=== PATIENT | female | born 1935 | race Caucasian/White ===

== ENCOUNTER → 2017-05-22 | Outpatient (CLI) | payer MEDICARE, BC ==
[2017-05-22 17:57] LABS: Sodium 129 mmol/L (137-145)
== END | disposition home or self-care (01) ==
LOC: LABWHC1 17:05
PROVIDERS: ATTEND Family Medicine
DX: E87.1 Hypo-osmolality and hyponatremia (principal)
CPT/HCPCS: 36415; 83930; 84295; 84300

== ENCOUNTER → 2017-05-29 | Outpatient (CLI) | payer MEDICARE, BC ==
[2017-05-29 13:41] LABS: Anion Gap 6 mmol/L; Blood Urea Nitrogen 8 mg/dL (7-17); Calcium 8.6 mg/dL (8.4-10.2); Carbon Dioxide 26 mmol/L (22-30); Chloride 99 mmol/L (98-107); Glucose 152 mg/dL (74-99); Non-African American GFR(MDRD) >60 (>60 ml/min/1.73 sqM); Potassium 3.9 mmol/L (3.5-5.1); Sodium 131 mmol/L (137-145)
== END | disposition home or self-care (01) ==
LOC: LABWHC1 12:25
PROVIDERS: ATTEND Family Medicine
DX: E87.1 Hypo-osmolality and hyponatremia (principal)
CPT/HCPCS: 36415; 80048

== ENCOUNTER → 2017-06-29 | Outpatient (CLI) | payer MEDICARE, BC ==
[2017-06-29 11:50] LABS: Basophils % (A) 1 %; CH 29.1; CHCM 31.6; Eosinophils # (A) 0.3 k/uL (0-0.7); Eosinophils % (A) 6 %; HCT 37.2 % (34.0-46.0); HDW 2.25; HGB 12.2 gm/dL (11.4-16.0); Luc # (Auto) 0.18; Luc % (Auto) 3; Lymphocytes # (A) 1.2 k/uL (1.0-4.8); Lymphocytes % (A) 21 %; MCH 30.4 pg (25.0-35.0); MCHC 32.9 g/dL (31.0-37.0); MCV 92.6 fL (80.0-100.0); Mean Platelet Volume 7.6; Monocytes # (A) 0.4 k/uL (0-1.0); Monocytes % (A) 7 %; Neutrophils # (A) 3.5 k/uL (1.3-7.7); Neutrophils % (A) 62 %; RBC 4.02 m/uL (3.80-5.40); RDW 14.3 % (11.5-15.5); WBC 5.6 k/uL (3.8-10.6); WBC (Perox) 5.91
[2017-06-29 12:07] LABS: Anion Gap 4 mmol/L; Blood Urea Nitrogen 11 mg/dL (7-17); Calcium 9.3 mg/dL (8.4-10.2); Carbon Dioxide 28 mmol/L (22-30); Chloride 103 mmol/L (98-107); Glucose 88 mg/dL (74-99); Non-African American GFR(MDRD) >60 (>60 ml/min/1.73 sqM); Potassium 4.5 mmol/L (3.5-5.1); Sodium 135 mmol/L (137-145)
== END | disposition home or self-care (01) ==
LOC: LABWHC1 11:24
PROVIDERS: ATTEND Nurse Practitioner Family
DX: D69.2 Other nonthrombocytopenic purpura (principal); E87.1 Hypo-osmolality and hyponatremia
CPT/HCPCS: 36415; 80048; 85025

== ENCOUNTER → 2017-09-11 | Outpatient (CLI) | payer MEDICARE, BC ==
[2017-09-11 12:49] LABS: Anion Gap 6 mmol/L; Blood Urea Nitrogen 11 mg/dL (7-17); Calcium 9.1 mg/dL (8.4-10.2); Carbon Dioxide 30 mmol/L (22-30); Chloride 99 mmol/L (98-107); Glucose 123 mg/dL (74-99); Potassium 4.3 mmol/L (3.5-5.1); Sodium 135 mmol/L (137-145)
== END | disposition home or self-care (01) ==
LOC: LABWHC1 12:15
PROVIDERS: ATTEND Family Medicine
DX: E87.1 Hypo-osmolality and hyponatremia (principal)
CPT/HCPCS: 36415; 80048; 83930

== ENCOUNTER → 2017-12-04 | Outpatient (CLI) | payer MEDICARE, BC | END | disposition home or self-care (01) | LOC: LABPAT 16:11 | PROVIDERS: ATTEND Orthopaedic Surgery | DX: Z01.812 Encounter for preprocedural laboratory examination (principal) | CPT/HCPCS: 87070 ==

== ENCOUNTER → 2017-12-07 | Outpatient (CLI) | payer MEDICARE, BC ==
[2017-12-07 16:11] LABS: HCT 36.4 % (34.0-46.0); HGB 11.7 gm/dL (11.4-16.0); MCH 28.4 pg (25.0-35.0); MCHC 32.1 g/dL (31.0-37.0); MCV 88.4 fL (80.0-100.0); Mean Platelet Volume 7.9; Platelet Count 213 k/uL (150-450); RBC 4.12 m/uL (3.80-5.40); RDW 13.3 % (11.5-15.5); WBC 4.2 k/uL (3.8-10.6)
[2017-12-07 16:19] LABS: Appearance,Urine Clear (Clear); Bacteria,Urine Rare /hpf; Bilirubin,Urine Negative (Negative); Blood,Urine Negative (Negative); Color,Urine Light Yellow; Glucose,Urine (UA) Negative (Negative); Ketones,Urine Negative (Negative); Leukocyte Esterase,Urine Trace (Negative); Mucus,Urine Rare /hpf; Nitrite,Urine Negative (Negative); Partial Thromboplastin Time 23.1 sec (22.0-30.0); Protein,Urine Negative (Negative); Prothrombin Time 9.9 sec (9.0-12.0); RBC,Urine <1 /hpf (0-5); Squamous Epithelial Cell,Urine <1 /hpf (0-4); Urobilinogen,Urine <2.0 mg/dL (<2.0); WBC,Urine 1 /hpf (0-5)
[2017-12-07 16:22] LABS: Albumin 3.6 g/dL (3.5-5.0); Calcium 9.2 mg/dL (8.4-10.2); Potassium 5.1 mmol/L (3.5-5.1); Total Bilirubin 0.2 mg/dL (0.2-1.3); Total Protein 6.2 g/dL (6.3-8.2)
[2017-12-07 16:39] LABS: T4, Free (Free Thyroxine) 0.96 ng/dL (0.78-2.19)
== END | disposition home or self-care (01) ==
LOC: LABPAT 15:28
PROVIDERS: ATTEND Family Medicine
DX: Z01.812 Encounter for preprocedural laboratory examination (principal); E55.9 Vitamin D deficiency, unspecified; R63.4 Abnormal weight loss
CPT/HCPCS: 36415; 80053; 81001; 82306; 84439; 84443; 85027; 85610; 85730; 87077; 87086; 87186

== ENCOUNTER → 2017-12-11 | Outpatient (CLI) | payer MEDICARE, BC ==
--- NOTE | 2017-12-11 10:50 | ECHOF ---
Referral Reason:Z01.818 Presurgical Evaluation MEASUREMENTS -------- HEIGHT: 157.5 cm WEIGHT: 43.1 kg BP: 154/64 IVSd: 1.0 cm (0.6 - 1.1) LVIDd: 3.1 cm (3.9 - 5.3) LVPWd: 1.1 cm (0.6 - 1.1) IVSs: 1.5 cm LVIDs: 1.9 cm LVPWs: 1.4 cm LAESV Index (A-L): 38.09 ml/m Ao Diam: 2.6 cm (2.0 - 3.7) AV Cusp: 1.6 cm (1.5 - 2.6) LA Diam: 3.1 cm (2.7 - 3.8) EPSS: 1.3 cm MV E Iggy: 0.77 m/s MV DecT: 138 ms MV A Iggy: 0.76 m/s MV E/A Ratio: 1.01 RAP: 5.00 mmHg RVSP: 23.73 mmHg MV EF SLOPE: 142.03 mm/s (70 - 150) MV EXCURSION: 1.49 cm (> 18.000) FINDINGS -------- Sinus rhythm. This was a technically good study. The left ventricular size is normal. Left ventricular wall thickness is normal. Overall left vent ricular systolic function is low-normal with, an EF between 50 - 55 %. The right ventricle is normal in size and function. The left atrium is normal in size. The right atrium is normal in size. Aortic valve is trileaflet and is mildly thickened. The mitral valve leaflets are mildly thickened. No mitral regurgitation. Mild tricuspid regurgitation present. The right ventricular systolic pressure, as measured by Doppl er, is 23.73mmHg. The pulmonic valve is normal. The aortic root size is normal. Normal inferior vena cava with normal inspiratory collapse consistent with estimated right atrial pre ssure of 5 mmHg. There is a small, generalized pericardial effusion present. CONCLUSIONS -------- 1. Sinus rhythm. 2. This was a technically good study. 3. The left ventricular size is normal. 4. Left ventricular wall thickness is normal. 5. Overall left ventricular systolic function is low-normal with, an EF between 50 - 55 %. 6. The right ventricle is normal in size and function. 7. The left atrium is normal in size. 8. The right atrium is normal in size. 9. Aortic valve is trileaflet and is mildly thickened. 10. The mitral valve leaflets are mildly thickened. 11. No mitral regurgitation. 12. Mild tricuspid regurgitation present. 13. The right ventricular systolic pressure, as measured by Doppler, is 23.73mmHg. 14. The pulmonic valve is normal. 15. The aortic root size is normal. 16. Normal inferior vena cava with normal inspiratory collapse consistent with estimated right atrial pressure of 5 mmHg. 17. There is a small, generalized pericardial effusion present. PROSTHETIC MAKEUP DESIGNER: Raegan Pop RDCS
== END | disposition home or self-care (01) ==
LOC: RADECHMAIN 08:25
PROVIDERS: ATTEND Family Medicine
DX: Z01.818 Encounter for other preprocedural examination (principal)
CPT/HCPCS: 93306

== ENCOUNTER → 2017-12-12 | Outpatient (CLI) | payer MEDICARE, BC | END | disposition home or self-care (01) | LOC: LABPAT 16:42 | PROVIDERS: ATTEND Orthopaedic Surgery | DX: Z01.818 Encounter for other preprocedural examination (principal); E55.9 Vitamin D deficiency, unspecified; R63.4 Abnormal weight loss; Z79.01 Long term (current) use of anticoagulants | CPT/HCPCS: 86850; 86900; 86901 ==

== ENCOUNTER 2017-12-19 07:21 | Inpatient (IN) | payer MEDICARE, BC ==
[2017-12-11 16:47] VITALS: BMI 17.4
[~2017-12-19 07:21] MED LIST: ACETAMINOPHEN TAB 500 MG TAB PO ONE; HYDROmorphone 0.5 MG/0.5 ML SYRINGE IVP PRN; LIDOCAINE 1% 20 ML VIAL (10MG/ML) FOR IV START INTRADERMA PRN; MELOXICAM 7.5 MG TAB PO ONE; MIDAZOLAM 2 MG/2 ML VIAL IV PRN; MORPHINE SULFATE 2 MG/ML SYRINGE IV PRN; ONDANSETRON ODT 4 MG TAB PO ONE; ROPIVACAINE 246.25 MG, EPINEPHrine 0.5 MG, KETOROLAC 30 MG, cloNIDine HCL/PF 80 MCG, WA... MISCELLANE ONE; SCOPOLAMINE 1.5MG/72HR PATCH TRANSDERM ONE; TRANEXAMIC ACID 1,000 MG in SODIUM CHLORIDE 0.9% 50 ML IVPB ONE
[2017-12-19] MEDS: LACTATED RINGERS 1,000 ML IV SCH (08:27)
[2017-12-19] MEDS ORDERED: NALOXONE 0.4 MG/ML 1 ML VIAL IV PRN (09:11)
[2017-12-19] MEDS ORDERED: MAGNESIUM HYDROXIDE 2,400 MG/10 ML CUP PO PRN (09:11)
[2017-12-19] MEDS ORDERED: HYDROcodone/APAP 5-325MG 1 EACH TAB PO PRN ×2 (09:11)
[2017-12-19] MEDS ORDERED: ONDANSETRON 4 MG/2 ML VIAL IVP PRN (09:11)
[2017-12-19] MEDS ORDERED: MORPHINE SULFATE 4 MG/ML SYRINGE IVP PRN ×3 (09:11)
[2017-12-19] MEDS ORDERED: hydrOXYzine PAMOATE 25 MG CAP PO PRN (09:11)
[2017-12-19] MEDS ORDERED: DIAZEPAM 5 MG TAB PO PRN ×2 (09:11)
[2017-12-19] MEDS ORDERED: ceFAZolin 3,000 MG in SODIUM CHLORIDE 0.9% IRRIGATIO 3,000 ML IRRIGATION ONE (09:36)
[2017-12-19] MEDS: ceFAZolin IN SWFI 2 GM/20 ML SYRINGE IVP ONE ×2 (09:44→09:58)
--- NOTE | 2017-12-19 11:06 | P.OP ---
Date of Procedure: 12/19/17 Preoperative Diagnosis: Severe osteoarthritis of the right hip Postoperative Diagnosis: Severe osteoarthritis of the right hip Procedure(s) Performed: Right total hip arthroplasty with a direct anterior approach Implants: Zuñiga and nephew Polarstem size 3 standard Zuñiga [employer] Nephew R3, 3 hole acetabular shell, 48 mm Zuñiga [employer] Nephew reflection 6.5 mm cancellus screw, 20 mm 2 Zuñiga [employer] Nephew R3, XLPE 20 acetabular liner Zuñiga [employer] Nephew Oxinium femoral head 32 m, +0 All components were press-fit. The articulation is Oxinium on polyethylene. Anesthesia: spinal Surgeon: Deshawn Ventura Cobbler Upper #1: Saarh Bowden Estimated Blood Loss (ml): 100 (67 mL returned with Cell Saver) Pathology: other (Femoral head) Condition: stable Disposition: PACU Indications for Procedure: After failure of conservative treatment we discussed the surgical and nonsurgical treatment options at length. Patient wishes to proceed with a total hip arthroplasty with a direct anterior approach. Complications specific to this procedure were discussed at length, including but not limited to infection, leg length discrepancy, dislocation, and nerve injury. Patient is aware of all these complications and informed consent was obtained Operative Findings: The operative findings are consistent with severe osteoarthritis of the right hip Description of Procedure: Patient was seen and evaluated in the preoperative area, consent was reviewed, and the surgical site was marked with a skin marker. Patient was then brought to the operating room and given prophylactic antibiotics intravenously. 1 g of Tranexamic acid was also given. A spinal anesthetic was administered by the anesthesia department. The patient was then placed on the [place] table with the bony prominences well-padded. The hip area was then prepped and draped in usual sterile fashion. A universal timeout was then performed, which confirmed the patient's name, surgical site, ALLERGIES, and procedure being performed. Next the incision site was located at 1 cm distal and 1 cm lateral to the anterior superior iliac spine. The skin and subcutaneous tissues were sharply incised. Incision was carefully dissected down to the fascia overlying the tensor fascia michelle muscle. This fascia was then incised in line with the incision. Next, using blunt finger dissection, the tensor fascia michelle muscle was dissected off its investing fascia. The muscle was then carefully retracted laterally with a cobra retractor over the lateral neck of the femur. Next, the circumflex vessels were identified and cauterized using the AquaMantis device. The anterior hip capsule was then exposed. The capsule was then opened and an inverted T fashion. Cobra retractors were then placed intracapsularly. The proximal femur was then visualized. The femoral neck was then osteotomized appropriate level above the lesser trochanter. Small amount of traction was placed with the Newfield table. A small wedge of bone was then removed from the remaining femoral head. Next, using a corkscrew femoral head was easily removed from the acetabulum. On gross visual inspection, the femoral head had complete loss of articular cartilage in multiple periarticular osteophytes. Attention was then turned to the acetabulum. the acetabulum was exposed and any remaining labrum was excised. Sequential reaming of the acetabulum was performed using fluoroscopic guidance. When the appropriate size was reached, a trial was then placed. The position and fit of the trial was checked with fluoroscopy. The trial was then removed. Then, using fluoroscopic guidance, the final implant was impacted at 20 of anteversion and 40 of abduction, and fully seated in the acetabulum. 2 screws were then placed in the acetabulum. Again fluoroscopy was used to check position of the screws. Next, the liner was then impacted, with a 20 elevated liner located in the anterior superior quadrant. Component locking was confirmed. Attention was then directed to the femur. With the aid of the Newfield table, the femur was externally rotated to approximately 130, extended, and abducted under the opposite leg. A side hook was then placed under the proximal femur, and the side hook elevator was used to elevate the proximal femur. Retractors were then placed. A capsular release was performed, as well as a release of the conjoined tendon, which afforded excellent visualization of the proximal femur. Next, a box osteotome was used to lateralize the proximal femur. A reset merchandiser was then used to locate the femoral canal. Sequential broaching was then performed with appropriate size which afforded excellent fixation in the proximal femur. A trial was then placed with appropriate head and neck, and the hip was gently reduced with the aid of the Newfield table. Fluoroscopy was then used to check position of the components, as well as to ensure equal leg lengths. The hip was then gently dislocated and the trials were then removed. Final implants were then impacted and the hip was again reduced. Final fluoroscopic x-rays confirmed that the components were in anatomic position, as well as equal leg lengths. The hip was also taken through range of motion, and found to be stable. The hip was then copiously irrigated with antibiotic solution with pulsatile lavage. The hip was then irrigated with Irrisept solution. The soft tissues were then injected with a ropivacaine solution, which consisted of 246.25 mg of ropivacaine, 0.5 mg of epinephrine, 30 mg of Toradol, 80 g of clonidine, and 48.45 mL of sterile water, for a total of 100 mL of fluid injected. A second dose of 1 g of Tranexamic acid was also given. the fascia was then closed with 2-0 strata fix suture. The subcutaneous tissue was closed with 3-0 Vicryl. The subcuticular tissue was closed with 3-0 strata fix suture. The skin was then closed with Dermabond glue and a sterile silver dressing. The patient was then transferred to the recovery room in stable condition. The culinary assistant BREANNA Arboleda was required due to the complexity of surgery, and the need for skilled surgical resident for positioning, draping, exposure, retraction, and closure of the wound.
--- NOTE | 2017-12-19 11:40 | XR ---
EXAMINATION TYPE: XR Hip Limited RT, FL guidance operating room DATE OF EXAM: 12/19/2017 CLINICAL HISTORY: Right hip replacement TECHNIQUE: Fluoroscopy. Limited intraoperative views right hip. COMPARISON: None. FINDINGS: Fluoroscopic guidance was provided during total hip replacement procedure performed by Dr. Ventura. A total of 34 seconds of fluoroscopic time was utilized during the procedure and 2 intrao perative spot images are acquired. Images acquired show metallic hardware satisfactory in position on frontal view intraoperatively. IMPRESSION: As Above.
--- NOTE | 2017-12-19 13:09 | XR ---
EXAMINATION TYPE: XR Hip Limited RT DATE OF EXAM: 12/19/2017 CLINICAL HISTORY: Right hip pain and osteoarthritis. TECHNIQUE: Single AP portable view of right hip is obtained immediately postoperatively. COMPARISON: None. FINDINGS: Metallic hardware from right hip arthroplasty is seen and appears satisfactory in alignment and position. There is evidence of recent surgery with subcutaneous gas noted laterally. IMPRESSION: Metallic hardware from right hip arthroplasty is satisfactory in position.
[2017-12-19] MEDS ORDERED: ACETAMINOPHEN IV (For NPO) 1,000 MG/100 ML VIAL IVPB ONE (14:31)
[2017-12-19] MEDS: ceFAZolin IN SWFI 2 GM/20 ML SYRINGE IVP SCH ×2 (18:11→22:51)
[2017-12-19] MEDS: ASPIRIN 325 MG TAB PO SCH (20:09)
[2017-12-19] MEDS ORDERED: FAMOTIDINE 20 MG/2 ML VIAL IV SCH (21:00)
[2017-12-19] MEDS: ACETAMINOPHEN TAB 500 MG TAB PO PRN (21:19)
[2017-12-20] MEDS: SODIUM CHLORIDE 0.9% 1,000 ML IV SCH ×3 (00:40→15:05)
[2017-12-20] MEDS: SENNOSIDES-DOCUSATE SODIUM 1 EACH TAB PO SCH ×2 (00:40→21:36)
[2017-12-20] MEDS: ACETAMINOPHEN TAB 500 MG TAB PO PRN (03:13)
[2017-12-20] MEDS: LACTATED RINGERS 1,000 ML IV SCH (06:38)
[2017-12-20 07:50] LABS: Basophils % (A) 0 %; Eosinophils # (A) 0.1 k/uL (0-0.7); Eosinophils % (A) 2 %; HCT 29.2 % (34.0-46.0); Lymphocytes # (A) 0.7 k/uL (1.0-4.8); Lymphocytes % (A) 13 %; MCH 28.8 pg (25.0-35.0); MCHC 33.2 g/dL (31.0-37.0); MCV 86.9 fL (80.0-100.0); Mean Platelet Volume 7.9; Monocytes # (A) 0.5 k/uL (0-1.0); Monocytes % (A) 8 %; Neutrophils # (A) 4.3 k/uL (1.3-7.7); Neutrophils % (A) 75 %; Platelet Count 186 k/uL (150-450); RBC 3.36 m/uL (3.80-5.40); RDW 13.5 % (11.5-15.5); WBC 5.7 k/uL (3.8-10.6)
[2017-12-20 07:53] LABS: HGB 9.7 gm/dL (11.4-16.0)
[2017-12-20] MEDS ORDERED: HYDROmorphone 2 MG TAB PO PRN ×3 (07:57→08:00)
[2017-12-20] MEDS ORDERED: traMADol 50 MG TAB PO PRN (08:37)
--- NOTE | 2017-12-20 08:45 | P.DS ---
Providers Date of admission: 12/19/17 07:21 Expected date of discharge: 12/20/17 Attending physician: Deshawn Ventura Consults: 12/19/17 09:11 Consult Physician Routine Consulting Provider: Flakito Rider Consult Reason/Comments: medical management Do you want consulting provider notified?: Yes Primary care physician: Jonatan Solis - Discharge Diagnosis(es) (1) Primary osteoarthritis of right hip Current Visit: Yes Status: Acute (2) S/P total hip arthroplasty Current Visit: Yes Status: Acute Hospital Course: This is a 82-year-old female with known history of degenerative arthritis of the right hip. The patient presents for evaluation. After discussion and consideration patient elects to proceed with total hip arthroplasty. The patient is seen preoperatively by Dr. Ventura and medically cleared for surgery by their primary care physician. Patient is admitted to [facility] on 12/19/2017 for total hip arthroplasty. The procedures performed without complication or sequelae. The patient is doing well postoperatively. Labs and vital signs are stable on day of discharge. On day of discharge patient's hip incision is healing well. There is minimal erythema. There is no drainage noted at this time. There is minimal soft tissue swelling to the hip and thigh. Patient has full foot and ankle motion without difficulty or pain. Neurovascular status to the right lower extremity is intact. Patient is discharged home in good condition. Please see med rec for accurate list of home medications. Plan - Discharge Summary Discharge Rx Participant: Yes New Discharge Prescriptions: New Aspirin 325 mg PO BID #60 tab Sennosides [Senokot] 1 tab PO BID #60 tablet traMADol HCl [Ultram] 1 - 2 tab PO Q6H PRN #90 tab PRN Reason: Pain No Action Multivitamins, Thera [Multivitamin] 1 tab PO DAILY Naproxen Sodium [Aleve] 220 mg PO BID PRN PRN Reason: Pain Acetaminophen Tab [Tylenol Tab] 650 mg PO Q4H PRN PRN Reason: Pain Cholecalciferol (Vitamin D3) [Vitamin D3] 2,000 unit PO DAILY Calcium Carbonate/Vitamin D3 [Calcium 600-Vit D3 400 Tablet] 1 tab PO DAILY Ascorbic Acid [Vitamin C] 500 mg PO DAILY Biotin 1,000 mcg PO DAILY Cefuroxime [Ceftin] 250 mg PO BID Discharge Medication List Multivitamins, Thera [Multivitamin] 1 tab PO DAILY 05/05/14 [History] Acetaminophen Tab [Tylenol Tab] 650 mg PO Q4H PRN 12/11/17 [History] Ascorbic Acid [Vitamin C] 500 mg PO DAILY 12/11/17 [History] Biotin 1,000 mcg PO DAILY 12/11/17 [History] Calcium Carbonate/Vitamin D3 [Calcium 600-Vit D3 400 Tablet] 1 tab PO DAILY [History] Cholecalciferol (Vitamin D3) [Vitamin D3] 2,000 unit PO DAILY 12/11/17 [History] Naproxen Sodium [Aleve] 220 mg PO BID PRN 12/11/17 [History] Cefuroxime [Ceftin] 250 mg PO BID 12/14/17 [History] Aspirin 325 mg PO BID #60 tab 12/20/17 [Rx] Sennosides [Senokot] 1 tab PO BID #60 tablet 12/20/17 [Rx] traMADol HCl [Ultram] 1 - 2 tab PO Q6H PRN #90 tab 12/20/17 [Rx] Follow up Appointment(s)/Referral(s): Deshawn Ventura DO [Doctor of Osteopathic Medicine] - 2 Weeks Activity/Diet/Wound Care/Special Instructions: Weightbearing as tolerated with walker Leave dressing intact. Dressing may be removed by home care nurse in 10 days. May shower with dressing on. Follow-up with [facility] in 2 weeks, please call with any questions or concerns [phone] Discharge Disposition: HOME WITH HOME HEALTH SERVICES
[2017-12-20] MEDS: MELOXICAM 7.5 MG TAB PO SCH (09:36)
[2017-12-20] MEDS: ASPIRIN 325 MG TAB PO SCH ×2 (09:36→21:36)
[2017-12-20] MEDS: traMADol 50 MG TAB PO PRN ×3 (09:37→23:38)
[2017-12-20] MEDS ORDERED: FAMOTIDINE 20 MG TAB PO SCH (10:00)
[2017-12-20] MEDS: FAMOTIDINE 20 MG TAB PO SCH (11:09)
--- NOTE | 2017-12-20 15:47 | P.CONS ---
History of Present Illness - Reason for Consult Recommendations regarding antibiotics - History of Present Illness 82-year-old female admitted for right hip arthroplasty 6 is less than and surgery no overnight events. Patient is on antibiotics for urinary tract infection with Klebsiella pneumoniae which is sensitive to cephalosporin patient is on the cephalosporin as an outpatient. Patient completed 6 doses of breath therapy so far in couple days here as perioperative antibiotics. I do not believe patient will require any more antibiotics patient appears to have had a symptomatically bacteriuria patient denied any pain fever chills patient did move her bowels today. Review of Systems REVIEW OF SYSTEMS: CONSTITUTIONAL: No fever, no malaise, no fatigue. HEENT: No recent visual problems or hearing problems. Denied any sore throat. CARDIOVASCULAR: No chest pain, orthopnea, PND, no palpitations, no syncope. PULMONARY: No shortness of breath, no cough, no hemoptysis. GASTROINTESTINAL: No diarrhea, no nausea, no vomiting, no abdominal pain. Normoactive bowel sounds. NEUROLOGICAL: No headaches, no weakness, no numbness. HEMATOLOGICAL: Denies any bleeding or petechiae. GENITOURINARY: Denies any burning micturition, frequency, or urgency. MUSCULOSKELETAL/RHEUMATOLOGICAL: Denies any joint pain, swelling, or any muscle pain. ENDOCRINE: Denies any polyuria or polydipsia. The rest of the 14-point review of systems is negative. Past Medical History Past Medical History: Cancer, Eye Disorder, Osteoarthritis (OA) Additional Past Medical History / Comment(s): DUODENAL CANCER 1998. CATARACTS. OSTEOPOROSIS. ON PO AB FOR UTI. History of Any Multi-Drug Resistant Organisms: None Reported Past Surgical History: Appendectomy, Cholecystectomy, Orthopedic Surgery, Tonsillectomy Additional Past Surgical History / Comment(s): "WHIPPLE PROCEDURE FOR DUODENAL CANCER." SANDRA BUNIONECTOMY. COLONOSCOPY Past Anesthesia/Blood Transfusion Reactions: No Reported Reaction Past Psychological History: No Psychological Hx Reported Smoking Status: Former smoker Past Alcohol Use History: Occasional Additional Past Alcohol Use History / Comment(s): SMOKED AGE 15 ON/OFF, LIGHT, QUIT 1963 Past Drug Use History: None Reported - Past Family History Brother(s) Family Medical History: Cancer Additional Family Medical History / Comment(s): X2 BROTHERS - 1 LUNG, 1 COLON Sister(s) Family Medical History: Cancer Additional Family Medical History / Comment(s): lung cancer Medications and Allergies Home Medications Medication Instructions Recorded Confirmed Type Multivitamins, Thera [Multivitamin] 1 tab PO DAILY 05/05/14 12/19/17 History Acetaminophen Tab [Tylenol Tab] 650 mg PO Q4H PRN 12/11/17 12/19/17 History Ascorbic Acid [Vitamin C] 500 mg PO DAILY 12/11/17 12/19/17 History Biotin 1,000 mcg PO DAILY 12/11/17 12/19/17 History Calcium Carbonate/Vitamin D3 1 tab PO DAILY 12/11/17 12/19/17 History [Calcium 600-Vit D3 400 Tablet] Cholecalciferol (Vitamin D3) 2,000 unit PO DAILY 12/11/17 12/19/17 History [Vitamin D3] Naproxen Sodium [Aleve] 220 mg PO BID PRN 12/11/17 12/19/17 History Cefuroxime [Ceftin] 250 mg PO BID 12/14/17 12/19/17 History Aspirin 325 mg PO BID #60 tab 12/20/17 Rx Sennosides [Senokot] 1 tab PO BID #60 tablet 12/20/17 Rx traMADol HCl [Ultram] 1 - 2 tab PO Q6H PRN #90 tab 12/20/17 Rx Allergies Allergy/AdvReac Type Severity Reaction Status Date / Time prednisone Allergy Nausea & Verified 12/19/17 09:21 Vomiting FLU VACCINE AdvReac CHILLS, Uncoded 12/19/17 08:25 FLU-LIKE SYMPTOMS Physical Exam Vitals: Vital Signs Temp Pulse Pulse Resp BP Pulse Ox 12/20/17 14:46 98.6 F 68 16 111/60 98 12/20/17 07:47 99.0 F 72 16 113/60 96 12/20/17 01:32 98.3 F 66 15 118/70 96 12/19/17 20:00 97.2 F L 61 16 121/63 98 12/19/17 15:45 97.6 F 57 L 16 110/63 98 Intake and Output 12/20/17 12/20/17 12/20/17 06:59 14:59 22:59 Intake Total 860 Balance 860 Intake: Oral 860 Other: Voiding Method Toilet # Voids 1 2 Weight 43.091 kg PHYSICAL EXAMINATION: GENERAL: The patient is alert and oriented x3, not in any acute distress. Thin built HEENT: Pupils are round and equally reacting to light. EOMI. No scleral icterus. No conjunctival pallor. Normocephalic, atraumatic. No pharyngeal erythema. No thyromegaly. CARDIOVASCULAR: S1 and S2 present. No murmurs, rubs, or gallops. PULMONARY: Chest is clear to auscultation, no wheezing or crackles. ABDOMEN: Soft, nontender, nondistended, normoactive bowel sounds. No palpable organomegaly. MUSCULOSKELETAL: Deferred to orthopedic surgery EXTREMITIES: No cyanosis, clubbing, or pedal edema. NEUROLOGICAL: Gross neurological examination did not reveal any focal deficits. SKIN: No rashes. Results CBC & Chem 7: 12/20/17 07:22 Labs: Abnormal Lab Results - Last 24 Hours (Table) 12/20/17 Range/Units 07:22 RBC 3.36 L (3.80-5.40) m/uL Hgb 9.7 L D (11.4-16.0) gm/dL Hct 29.2 L (34.0-46.0) % Lymphocytes # 0.7 L (1.0-4.8) k/uL Assessment and Plan Plan: -Postoperative day 1 status post right hip arthroplasty: Pain management and DVT prophylaxis as per primary service. -Recent possible urinary tract infection or asymptomatic bacteriuria: Patient completed her antibiotic therapy for about 7 days which is more than required for urinary tract infection and I do not believe patient will need to continue this antibiotic anymore. -gastroesophageal reflux disease No further recommendations from a medicine perspective call us back if needed. We'll follow the patient on as-needed basis.
[2017-12-21] MEDS: LACTATED RINGERS 1,000 ML IV SCH (06:25)
[2017-12-21] MEDS: SODIUM CHLORIDE 0.9% 1,000 ML IV SCH (07:16)
[2017-12-21 08:33] VITALS: BP 119/51; PULSE 85; RESP 16; TEMP 98.6
[2017-12-21] MEDS: ASPIRIN 325 MG TAB PO SCH (08:50)
[2017-12-21] MEDS: FAMOTIDINE 20 MG TAB PO SCH (08:50)
[2017-12-21] MEDS: MELOXICAM 7.5 MG TAB PO SCH (08:50)
[2017-12-21 09:06] LABS: Appearance,Urine Cloudy (Clear); Bilirubin,Urine Negative (Negative); Blood,Urine Negative (Negative); Color,Urine Yellow; Glucose,Urine (UA) Negative (Negative); Ketones,Urine Negative (Negative); Leukocyte Esterase,Urine Negative (Negative); Mucus,Urine Rare /hpf; Nitrite,Urine Negative (Negative); PH, Urine 5.5 (5.0-8.0); Protein,Urine Negative (Negative); Specific Gravity,Urine 1.014 (1.001-1.035); Squamous Epithelial Cell,Urine <1 /hpf (0-4); Urobilinogen,Urine <2.0 mg/dL (<2.0); WBC,Urine 1 /hpf (0-5)
== END 2017-12-21 14:03 | disposition home health service (06) | DRG 470 ==
LOC: 2ORMAIN 07:21 → 3SUR 15:03
PROVIDERS: ADMIT Orthopaedic Surgery; ATTEND Orthopaedic Surgery
PROC: 0SR906A Replacement of Right Hip Joint with Oxidized Zirconium on Polyethylene Synthetic Substitute, Uncemented, Open Approach (ICD-10-PCS; principal; 2017-12-19 09:15)
DX: M16.11 Unilateral primary osteoarthritis, right hip (principal); M81.0 Age-related osteoporosis without current pathological fracture; Z79.1 Long term (current) use of non-steroidal anti-inflammatories (NSAID); Z88.8 Allergy status to other drugs, medicaments and biological substances; Z87.891 Personal history of nicotine dependence; Z79.82 Long term (current) use of aspirin; Z80.1 Family history of malignant neoplasm of trachea, bronchus and lung; Z85.068 Personal history of other malignant neoplasm of small intestine
CPT/HCPCS: 73501; 81001; 85025; 86850; 86891; 86900; 86901; 88300

== ENCOUNTER 2018-01-06 20:33 | Inpatient (IN) | payer MEDICARE, BC ==
[2018-01-06] MEDS ORDERED: ACETAMINOPHEN TAB 500 MG TAB PO STA (23:10)
--- NOTE | 2018-01-06 23:28 | ED ---
Extremity Problem HPI - General Chief complaint: Extremity Problem,Nontraumatic Stated complaint: hip & groin pain/post hip surgery Time Seen by Provider: 01/06/18 22:35 Source: patient Mode of arrival: wheelchair Limitations: no limitations - History of Present Illness Initial comments: 82-year-old female patient presents to the emergency department today for evaluation of increased right hip pain. The patient underwent total right hip arthroplasty on 12/19/[address] Deshawn Ventura. Patient has been performing home physical therapy and tolerating this quite well. Patient states that she woke this morning with increased right hip pain. Patient states that the pain worsens when she steps down on the leg. Patient states that she also does have generalized swelling to the leg however this has been present since the surgery. Patient denies any fever or chills. She states that she does have some numbness to the lateral aspect of the right thigh however this has been present since the procedure. She denies any numbness or tingling to the foot. States that the incision seems to be doing well. She denies any injury. Patient denies any recent rash, fever, chills, shortness breath, chest pain, palpitations, abdominal pain, nausea, vomiting, diarrhea, constipation, back pain, dizziness, weakness, hematuria, dysuria, urinary urgency, urinary frequency, headache, visual changes, or any other complaints. - Related Data Home Medications Medication Instructions Recorded Confirmed Multivitamins, Thera [Multivitamin] 1 tab PO DAILY 05/05/14 12/19/17 Acetaminophen Tab [Tylenol Tab] 650 mg PO Q4H PRN 12/11/17 12/19/17 Ascorbic Acid [Vitamin C] 500 mg PO DAILY 12/11/17 12/19/17 Biotin 1,000 mcg PO DAILY 12/11/17 12/19/17 Calcium Carbonate/Vitamin D3 1 tab PO DAILY 12/11/17 12/19/17 [Calcium 600-Vit D3 400 Tablet] Cholecalciferol (Vitamin D3) 2,000 unit PO DAILY 12/11/17 12/19/17 [Vitamin D3] Naproxen Sodium [Aleve] 220 mg PO BID PRN 12/11/17 12/19/17 Cefuroxime [Ceftin] 250 mg PO BID 12/14/17 12/19/17 Previous Rx's Medication Instructions Recorded Aspirin 325 mg PO BID #60 tab 12/20/17 Sennosides [Senokot] 1 tab PO BID #60 tablet 12/20/17 traMADol HCl [Ultram] 1 - 2 tab PO Q6H PRN #90 tab 12/20/17 Allergies Allergy/AdvReac Type Severity Reaction Status Date / Time prednisone Allergy Nausea & Verified 01/06/18 21:08 Vomiting tramadol Allergy Hallucinati Verified 01/06/18 21:09 ons FLU VACCINE AdvReac CHILLS, Uncoded 01/06/18 21:08 FLU-LIKE SYMPTOMS Review of Systems ROS Statement: Those systems with pertinent positive or pertinent negative responses have been documented in the HPI. ROS Other: All systems not noted in ROS Statement are negative. Past Medical History Past Medical History: Cancer, Eye Disorder, Osteoarthritis (OA) Additional Past Medical History / Comment(s): DUODENAL CANCER 1998. CATARACTS. OSTEOPOROSIS. ON PO AB FOR UTI. History of Any Multi-Drug Resistant Organisms: None Reported Past Surgical History: Appendectomy, Cholecystectomy, Orthopedic Surgery, Tonsillectomy Additional Past Surgical History / Comment(s): "WHIPPLE PROCEDURE FOR DUODENAL CANCER." SANDRA BUNIONECTOMY. COLONOSCOPY Past Anesthesia/Blood Transfusion Reactions: No Reported Reaction Past Psychological History: No Psychological Hx Reported Smoking Status: Former smoker Past Alcohol Use History: Occasional Past Drug Use History: None Reported - Past Family History Brother(s) Family Medical History: Cancer Additional Family Medical History / Comment(s): X2 BROTHERS - 1 LUNG, 1 COLON Sister(s) Family Medical History: Cancer Additional Family Medical History / Comment(s): lung cancer General Exam Limitations: no limitations General appearance: alert, in no apparent distress, other (This is a well- developed, well-nourished elderly female patient in no acute distress. Vital signs upon presentation are temperature 98.3F, pulse 71, respirations 18, blood pressure 171/66, pulse ox 100% on room air.) Eye exam: Present: normal appearance, PERRL, EOMI. Absent: scleral icterus, conjunctival injection, periorbital swelling ENT exam: Present: normal exam, normal oropharynx, mucous membranes moist Respiratory exam: Present: normal lung sounds bilaterally. Absent: respiratory distress, wheezes, rales, rhonchi, stridor Cardiovascular Exam: Present: regular rate, normal rhythm, normal heart sounds. Absent: systolic murmur, diastolic murmur, rubs, gallop, clicks GI/Abdominal exam: Present: soft, normal bowel sounds. Absent: distended, tenderness, guarding, rebound, rigid Extremities exam: Present: normal inspection, full ROM, normal capillary refill , other (Patient has a healing incision to the right anterior hip. There is no evidence of erythema or drainage from the incision site. Patient has full range of motion of the right hip however reports increased pain with flexion. There is 1+ pitting edema to the right lower leg. Pedal and posttibial pulses are 2+ and equal bilaterally. Cap refills less than 3 seconds. Skin is pink, warm, and dry.). Absent: tenderness, pedal edema, joint swelling, calf tenderness Back exam: Present: normal inspection Neurological exam: Present: alert, oriented X3, CN II-XII intact Psychiatric exam: Present: normal affect, normal mood Skin exam: Present: warm, dry, intact, normal color. Absent: rash Course Vital Signs 01/06/18 01/06/18 01/07/18 21:05 23:01 00:30 Temperature 98.3 F Pulse Rate 71 63 68 Respiratory 18 18 18 Rate Blood Pressure 171/66 178/70 181/77 O2 Sat by Pulse 100 98 99 Oximetry 01/07/18 01/07/18 01:44 03:22 Temperature 97.8 F Pulse Rate 66 65 Respiratory 18 18 Rate Blood Pressure 177/78 180/75 O2 Sat by Pulse 99 98 Oximetry Medical Decision Making - Medical Decision Making 82-year-old female patient presents to the emergency department today for evaluation of right hip pain that radiates into her groin and down the medial aspect of her thigh. X-ray was obtained and did show 1.5 cm area of possible bone destruction or osteomyelitis. The radiologist feels this is changed compared to the last exam. We did review labs which showed mildly decreased white blood cell count, normal CRP. Given possibility for osteomyelitis and recent surgery will keep patient in the hospital and start [place]. Dr. Ventura was consulted. Patient will be admitted to Dr. Rider. - Lab Data Result diagrams: 01/07/18 01:42 01/07/18 01:42 Lab Results 01/07/18 01/07/18 Range/Units 01:42 01:42 WBC 3.6 L (3.8-10.6) k/uL RBC 3.58 L (3.80-5.40) m/uL Hgb 10.1 L (11.4-16.0) gm/dL Hct 31.2 L (34.0-46.0) % MCV 87.1 (80.0-100.0) fL MCH 28.3 (25.0-35.0) pg MCHC 32.5 (31.0-37.0) g/dL RDW 13.9 (11.5-15.5) % Plt Count 432 D (150-450) k/uL Neutrophils % 65 % Lymphocytes % 21 % Monocytes % 7 % Eosinophils % 3 % Basophils % 1 % Neutrophils # 2.3 (1.3-7.7) k/uL Lymphocytes # 0.8 L (1.0-4.8) k/uL Monocytes # 0.2 (0-1.0) k/uL Eosinophils # 0.1 (0-0.7) k/uL Basophils # 0.0 (0-0.2) k/uL Sodium 132 L (137-145) mmol/L Potassium 5.0 (3.5-5.1) mmol/L Chloride 96 L (98-107) mmol/L Carbon Dioxide 27 (22-30) mmol/L Anion Gap 9 mmol/L BUN 10 (7-17) mg/dL Creatinine 0.40 L (0.52-1.04) mg/dL Est GFR (CKD-EPI)AfAm >90 (>60 ml/min/1.73 sqM) Est GFR (CKD-EPI)NonAf >90 (>60 ml/min/1.73 sqM) Glucose 104 H (74-99) mg/dL Calcium 8.9 (8.4-10.2) mg/dL Total Bilirubin 0.4 (0.2-1.3) mg/dL AST 40 H (14-36) U/L ALT 22 (9-52) U/L Alkaline Phosphatase 133 H (38-126) U/L C-Reactive Protein <5.0 (<10.0) mg/L Total Protein 6.0 L (6.3-8.2) g/dL Albumin 3.3 L (3.5-5.0) g/dL - Radiology Data Radiology results: report reviewed, image reviewed Two-view x-ray of the right hip is obtained. There is right hip prosthesis. Components appear in anatomic position. There is some lucency of of the prosthetic acetabulum. This could be increased compared to last exam. Impression by Dr. Vazquez shows no fracture seen. Potential 1.5 cm bone destruction or osteomyelitis involving the acetabulum adjacent to the acetabular component. US he has Doppler duplex to the right lower extremity was obtained. Report was reviewed in its entirety. Right leg is negative for DVT. Disposition Clinical Impression: Right hip pain Narrative: Rule out osteomyelitis Disposition: ADMITTED IP TO THIS [facility] Condition: Serious Decision to Admit Reason: Admit from EC Decision Date: 01/07/18 Decision Time: 02:56
--- NOTE | 2018-01-07 00:40 | XR ---
EXAMINATION TYPE: XR Hip Complete RT DATE OF EXAM: 01/06/2018 COMPARISON: 12/19/2017 HISTORY: Right hip pain TECHNIQUE: 2 views FINDINGS: There is a right hip prosthesis. Components appear in anatomic position. There is some lucency above the prosthetic acetabulum. This could be increased compared to last exam. IMPRESSION: No fracture seen. Potential 1.5 cm bone destruction or osteomyelitis involving the acetab ulum adjacent to the acetabular component.
--- NOTE | 2018-01-07 01:09 | US ---
EXAMINATION TYPE: US venous doppler duplex LE RT DATE OF EXAM: 01/07/2018 12:13 AM COMPARISON: CLINICAL HISTORY: Pain. Pain. Hx of total rt hip replacement December 19. On aspirin twice a day. SIDE PERFORMED: Right TECHNIQUE: The lower extremity deep venous system is examined utilizing real time linear array sonog donavan with graded compression, doppler sonography and color-flow sonography. VESSELS IMAGED: External Iliac Vein (EIV) Common Femoral Vein Deep Femoral Vein Greater Saphenous Vein * Femoral Vein Popliteal Vein Small Saphenous Vein * Proximal Calf Veins (* superficial vessels) Right Leg: Negative for DVT IMPRESSION: Normal exam. No evidence of deep venous thrombosis in the right leg.
[2018-01-07 02:05] LABS: Basophils % (A) 1 %; Eosinophils # (A) 0.1 k/uL (0-0.7); Eosinophils % (A) 3 %; HCT 31.2 % (34.0-46.0); HGB 10.1 gm/dL (11.4-16.0); Lymphocytes # (A) 0.8 k/uL (1.0-4.8); Lymphocytes % (A) 21 %; MCH 28.3 pg (25.0-35.0); MCHC 32.5 g/dL (31.0-37.0); MCV 87.1 fL (80.0-100.0); Mean Platelet Volume 6.7; Monocytes # (A) 0.2 k/uL (0-1.0); Monocytes % (A) 7 %; Neutrophils # (A) 2.3 k/uL (1.3-7.7); Neutrophils % (A) 65 %; RBC 3.58 m/uL (3.80-5.40); RDW 13.9 % (11.5-15.5); WBC 3.6 k/uL (3.8-10.6)
[2018-01-07 02:13] LABS: ALT 22 U/L (9-52); AST 40 U/L (14-36); Albumin 3.3 g/dL (3.5-5.0); Alkaline Phosphatase 133 U/L (38-126); Anion Gap 9 mmol/L; Blood Urea Nitrogen 10 mg/dL (7-17); C Reactive Protein <5.0 mg/L (<10.0); Calcium 8.9 mg/dL (8.4-10.2); Carbon Dioxide 27 mmol/L (22-30); Chloride 96 mmol/L (98-107); Glucose 104 mg/dL (74-99); Sodium 132 mmol/L (137-145); Total Bilirubin 0.4 mg/dL (0.2-1.3)
[2018-01-07 02:36] LABS: Platelet Count 432 k/uL (150-450)
[2018-01-07] MEDS ORDERED: NALOXONE 0.4 MG/ML 1 ML VIAL IV PRN (02:54)
[2018-01-07] MEDS ORDERED: IBUPROFEN 400 MG TAB PO PRN (02:54)
[2018-01-07] MEDS ORDERED: VANCOMYCIN IV PER PHARMACY 1 EACH MISC MISCELLANE PRN (03:23)
[2018-01-07 04:15] VITALS: BMI 17.4
[2018-01-07] MEDS: VANCOMYCIN 750 MG in SODIUM CHLORIDE 0.9% 250 ML IVPB SCH ×2 (04:55→16:59)
[2018-01-07] MEDS: ACETAMINOPHEN TAB 325 MG TAB PO PRN ×3 (07:10→19:47)
[2018-01-07] MEDS ORDERED: traMADol 50 MG TAB PO PRN (13:22)
[2018-01-07] MEDS: SENNOSIDES 8.6 MG TAB PO SCH ×2 (15:12→21:45)
[2018-01-07] MEDS: ASPIRIN 325 MG TAB PO SCH ×2 (15:12→21:46)
--- NOTE | 2018-01-07 16:29 | HP ---
HISTORY AND PHYSICAL DATE OF ADMISSION: 01/07/2018. DATE OF SERVICE: 01/07/2018. PRESENTING COMPLAINT: Right leg pain. HISTORY OF PRESENTING COMPLAINT: This is a very pleasant 82-year-old patient of Dr. Solis whose chronic stable medical conditions include anemia, osteoporosis, osteoarthritis. The patient, on 12/19/2017, underwent right total hip arthroplasty by Dr. Ventura. The patient had a visiting nurse at home and physical therapy, doing really well a cane and a walker. The patient is rather active. The patient presents with pain that started in the right lower back below the right hip area with numbness around the inside of the left thigh, going down the right leg. Slight weakness. Denies any fever, chills. Denies any obvious injury. The patient states he has swelling in the right leg since the surgery. The patient did remember getting into a high SUV a few days ago and had to lift her right leg up and felt really awkward while doing that and is not sure of the timing of the presentation to that. There have been no fevers or chills. The patient was also just treated for UTI with Ceftin. In the ER the patient had a hip x-ray done, there was a potential 1.5 cm bone destruction or osteomyelitis involving the acetabulum adjacent to the acetabular component. Hence she was put on vancomycin from the ER and admitted for the same. The patient otherwise feels rather good. REVIEW OF SYSTEMS: CONSTITUTIONAL: No fever or chills. HEENT: None. RESPIRATORY: None. CARDIOVASCULAR: None. GENITOURINARY: None. GASTROINTESTINAL: None. MUSCULOSKELETAL: As above. DERMATOLOGIC: Incision healing well. LYMPHATICS: None. PSYCHIATRY: None. NEUROLOGIC: None. PAST MEDICAL HISTORY: Osteoarthritis, duodenal ulcer in 1998, osteoporosis, completing a course of antibiotics for UTI. PAST SURGICAL HISTORY: Appendectomy, cholecystectomy, tonsillectomy, Whipple's procedure for duodenal ulcer, bilateral bunionectomy, osteoarthritis. SOCIAL HISTORY: The patient lives alone. Alcohol occasionally. Does not smoke. FAMILY HISTORY: One brother had lung cancer. One brother had colon cancer. HOME MEDICATIONS: 1. Ultram 1 to 2 tablets every 6 hours p.r.n. 2. Senokot 1 tablet p.o. b.i.d. 3. Aleve 220 mg b.i.d. p.r.n. 4. Multivitamin 1 tablet p.o. daily. 5. Vitamin D3, 2000 units p.o. daily. 6. Ceftin 250 mg p.o. b.i.d. 7. Calcium, vitamin D3 one tablet daily. 8. Biotin 1000 mcg p.o. daily. 9. Aspirin 325 p.o. b.i.d. 10.Vitamin C 500 mg p.o. daily. 11.Tylenol 650 mg every 4 p.r.n. ALLERGIES: PREDNISONE, TRAMADOL, FLU VACCINE. PHYSICAL EXAMINATION: Temperature 98.3 pulse 71, respiratory rate 18, blood pressure 117/66, pulse ox 100% on room air. GENERAL APPEARANCE: Thin built, BMI 17.4, sitting up comfortable. EYES: Pupil equal. Conjunctivae normal. HEENT: External appearance of nose and ears normal. Oral cavity normal. NECK: JVD not raised. Mass not palpable. Respiratory effort normal. LUNGS: Clear. CARDIOVASCULAR: First and second heart sounds. No edema. ABDOMEN: Soft, nontender. Liver and spleen not palpable. LYMPHATIC: No lymph nodes palpable. PSYCHIATRY: Alert and oriented x3. Mood and affect normal. NEUROLOGIC: Pupils equal. Cranial nerves grossly intact. Power and sensation grossly intact. MUSCULOSKELETAL: Slightly limited range of motion on the right hip. The patient's reflexes both the knee and ankle are good. The patient is both able to invert and yang the foot. Slight numbness reported inside and outside the thigh she states since the surgery. There is no point tenderness in the groin. Incision is healing well. Some swelling of the right lower extremity. INVESTIGATIONS: White count 3.6, hemoglobin 10.1, platelets 432,000, potassium 5, BUN 10, creatinine 0.40. Hip x-ray, no fracture seen. Potential 1.5 cm bone destruction or osteomyelitis involving the acetabulum adjacent to acetabular component. No evidence of DVT. ASSESSMENT: 1. This is a patient who presents with pain in the right lower back around the SI joint with some numbness in the middle third of the thigh and down the right leg, more likely this could be sciatica or radicular pain from L4-L5 and could be precipitated by her getting into the SUV. The patient has no fever, no chills. White count is not high, making osteomyelitis less likely. The finding on the x- ray could be purely be mechanical. 2. Primary osteoarthritis. 3. Normocytic anemia, chronic. 4. Mild hyponatremia, probably hypoosmolar from decreased food intake. PLAN: Patient is started on vancomycin in the ER. We will get Infectious Disease opinion though I highly doubt this is osteomyelitis. The patient's home medications will be resumed. Will continue with the patient's aspirin. We will also stop patient's Ceftin as the UA is benign and patient has no further symptoms. Care was discussed in detail with the patient. MMODL / IJN: [id number] /
[2018-01-08 02:08] VITALS: RESP 16
[2018-01-08] MEDS: VANCOMYCIN 750 MG in SODIUM CHLORIDE 0.9% 250 ML IVPB SCH (04:19)
[2018-01-08] MEDS: ACETAMINOPHEN TAB 325 MG TAB PO PRN ×2 (08:05→13:53)
[2018-01-08 08:15] VITALS: BP 144/59; PULSE 66; TEMP 98.4
[2018-01-08] MEDS: SENNOSIDES 8.6 MG TAB PO SCH (08:20)
[2018-01-08] MEDS: ASPIRIN 325 MG TAB PO SCH (08:20)
[2018-01-08] MEDS ORDERED: predniSONE 20 MG TAB PO STA (11:49)
--- NOTE | 2018-01-08 14:33 | DS ---
DISCHARGE SUMMARY DATE OF ADMISSION: 01/07/18. DATE OF DISCHARGE: January 08, 2018. FINAL DIAGNOSES: 1. Right leg sciatica with radicular pain in L4-L5 distribution. 2. Primary osteoarthritis. 3. Normocytic anemia, chronic. 4. Mild hyponatremia probably hypoosmolar from decreased food intake. HOSPITAL COURSE: This very pleasant lady who had a right total hip arthroplasty done by Dr. Ventura on December 19, 2017, presents with pain in the right lower back going down the right leg felt to be more like radicular pain. The patient has no fever, no white count. There was concern on the ER based on the x-ray there was osteomyelitis. I had initially consulted Dr. Sánchez. Dr. Ventura did see the patient this morning and was quite comfortable that this was not osteomyelitis, which is also my opinion and I am comfortable with that. Hence antibiotics have been discontinued. The patient's pain is much improved. On exam, lungs are clear. Cardiovascular 1st and second sounds normal. Very minimal limited range of motion of the right hip. The patient's incision is healing well. DISCHARGE MEDICATIONS: 1. Aspirin 325 p.o. b.i.d. 2. Tylenol 500 to 1000 p.o. q.6 p.r.n. 3. Tylenol 650 mg p.o. q.4 p.r.n. 4. Prednisone rapid taper. 5. Pepcid 20 mg b.i.d. FOLLOW UP: With Dr. Ventura on January 17, 2018. Follow up with Dr. Solis in [address] Solis. MMODL / DUCN: [id number] /
--- NOTE | 2018-01-08 16:50 | P.CNOR ---
History of Present Illness - HPI Consult date: 01/08/18 History of present illness: This is an 82 year-old female who is status post right total hip arthroplasty on 12/19/2017. Patient was admitted through the emergency room on 01/06/2018 for increased pain in the right hip. Patient denies any injury and states the pain started after stepping up into a high SUV. Patient states that the pain was in the groin, lower back and upper right leg. Patient states that the pain was occuring at rest and with activity so she was told to go to the emergency room for evaluation. Patient states that today the pain has significantly improved and she is walking without difficulty using a walker. Patient states that her lower back pain has completely resolved. Patient denies any recent fever, chills , shortness breath, chest pain, abdominal pain, nausea/vomiting/diarrhea, back pain, numbness, tingling, hematuria, headache, or visual changes, calf pain or any other complaints. Review of Systems See HPI. Past Medical History Past Medical History: Cancer, Eye Disorder, Osteoarthritis (OA) Additional Past Medical History / Comment(s): DUODENAL CANCER 1998. CATARACTS. OSTEOPOROSIS. ON PO AB FOR UTI. History of Any Multi-Drug Resistant Organisms: None Reported Past Surgical History: Appendectomy, Cholecystectomy, Orthopedic Surgery, Tonsillectomy Additional Past Surgical History / Comment(s): "WHIPPLE PROCEDURE FOR DUODENAL CANCER." SANDRA BUNIONECTOMY. COLONOSCOPY Past Anesthesia/Blood Transfusion Reactions: No Reported Reaction Past Psychological History: No Psychological Hx Reported Smoking Status: Former smoker Past Alcohol Use History: Occasional Additional Past Alcohol Use History / Comment(s): SMOKED AGE 15 ON/OFF, LIGHT, QUIT 1963 Past Drug Use History: None Reported - Past Family History Brother(s) Family Medical History: Cancer Additional Family Medical History / Comment(s): X2 BROTHERS - 1 LUNG, 1 COLON Sister(s) Family Medical History: Cancer Additional Family Medical History / Comment(s): lung cancer Medications and Allergies Home Medications Medication Instructions Recorded Confirmed Type Aspirin 325 mg PO BID #60 tab 12/20/17 01/07/18 Rx Acetaminophen Tab [Tylenol Tab] 500 - 1,000 mg PO Q6HR PRN 01/07/18 01/07/18 History Allergies Allergy/AdvReac Type Severity Reaction Status Date / Time bee pollen Allergy Unknown Verified 01/07/18 15:16 prednisone Allergy Nausea & Verified 01/07/18 15:16 Vomiting tramadol Allergy Hallucinati Verified 01/07/18 15:16 ons Influenza Virus Vaccines AdvReac Chills, Verified 01/07/18 15:16 flu-like symptoms Physical Examination Vital signs are stable. Patient is in no acute distress and is alert and oriented 3. Incision is well-healed with no surrounding erythema or drainage. There is mild soft tissue swelling to the right lower leg. Calf is soft and nontender to palpation. Patient has full active and passive range of motion of the right hip without pain or difficulty. Patient has full foot and ankle motion without pain or difficulty. Neurovascular status and circulatory status are intact. Results X-rays of the right hip dated 01/06/2018: No fracture seen. Potential 1.5 cm bone distraction or osteomyelitis involving the acetabulum adjacent to the acetabular component. Report by Dr. Vazquez. Venous doppler ultrasound of the right lower extremity dated 01/07/2018 is negative for DVT. - Labs Labs: Microbiology - Last 24 Hours (Table) 01/07/18 01:42 Blood Culture - Preliminary Blood No Growth after 24 hours H & H 01/07/18 Range/Units 01:42 Hgb 10.1 L (11.4-16.0) gm/dL Hct 31.2 L (34.0-46.0) % Result Diagrams: 01/07/18 01:42 01/07/18 01:42 Assessment and Plan (1) Right hip pain Current Visit: Yes Status: Acute Code(s): M25.551 - PAIN IN RIGHT HIP SNOMED Code(s): 51372731 (2) S/P total hip arthroplasty Current Visit: No Status: Acute Code(s): Z96.649 - PRESENCE OF UNSPECIFIED ARTIFICIAL HIP JOINT SNOMED Code(s): 344614789630 Plan: 1. X-ray findings are reviewed. Changes noted on x-ray are related to the patient's recent right total hip arthroplasty. Very low suspicion for osteomyelitis. Patient is afebrile and lab work is within normal limits. Patient's symptoms have improved. 2. Patient may be discharged home and follow-up with [facility] as an outpatient.
[2018-01-09] MEDS ORDERED: VANCOMYCIN TROUGH DUE 1 EACH MISC MISCELLANE ONE (03:00)
== END 2018-01-08 14:20 | disposition home health service (06) | DRG 552 ==
LOC: EC 20:33 → 3SUR 01-07 03:10
PROVIDERS: ADMIT Hospitalist; ATTEND Hospitalist
DX: M54.41 Lumbago with sciatica, right side (principal); E87.1 Hypo-osmolality and hyponatremia; D64.9 Anemia, unspecified; M19.91 Primary osteoarthritis, unspecified site; M81.0 Age-related osteoporosis without current pathological fracture; M54.16 Radiculopathy, lumbar region; D72.819 Decreased white blood cell count, unspecified; Z85.068 Personal history of other malignant neoplasm of small intestine; Z87.11 Personal history of peptic ulcer disease; Z87.891 Personal history of nicotine dependence; Z96.641 Presence of right artificial hip joint; Z90.49 Acquired absence of other specified parts of digestive tract; Z98.42 Cataract extraction status, left eye; Z98.41 Cataract extraction status, right eye; Z96.1 Presence of intraocular lens; Z79.82 Long term (current) use of aspirin; Z79.899 Other long term (current) drug therapy; Z88.5 Allergy status to narcotic agent; Z88.7 Allergy status to serum and vaccine; Z88.8 Allergy status to other drugs, medicaments and biological substances; Z80.0 Family history of malignant neoplasm of digestive organs; Z80.1 Family history of malignant neoplasm of trachea, bronchus and lung
CPT/HCPCS: 36415; 73502; 80053; 85025; 86140; 87040; 99285

== ENCOUNTER → 2018-02-02 | Outpatient (CLI) | payer MEDICARE, BC ==
[2018-02-02 08:13] LABS: Basophils % (A) 1 %; Eosinophils # (A) 0.4 k/uL (0-0.7); Eosinophils % (A) 8 %; HCT 36.9 % (34.0-46.0); HGB 11.9 gm/dL (11.4-16.0); Hypochromasia Slight; Lymphocytes # (A) 1.1 k/uL (1.0-4.8); Lymphocytes % (A) 24 %; MCH 28.6 pg (25.0-35.0); MCHC 32.1 g/dL (31.0-37.0); MCV 88.8 fL (80.0-100.0); Mean Platelet Volume 6.6; Monocytes # (A) 0.3 k/uL (0-1.0); Monocytes % (A) 6 %; Neutrophils # (A) 2.7 k/uL (1.3-7.7); Neutrophils % (A) 58 %; Platelet Count 319 k/uL (150-450); RBC 4.16 m/uL (3.80-5.40); WBC 4.7 k/uL (3.8-10.6)
[2018-02-02 08:37] LABS: Anion Gap 7 mmol/L; Blood Urea Nitrogen 10 mg/dL (7-17); Calcium 9.2 mg/dL (8.4-10.2); Carbon Dioxide 29 mmol/L (22-30); Chloride 101 mmol/L (98-107); Glucose 80 mg/dL (74-99); Potassium 5.7 mmol/L (3.5-5.1); Sodium 137 mmol/L (137-145)
[2018-02-02 16:53] LABS: Iron Saturation 10.96 (12.00-45.00)
== END | disposition home or self-care (01) ==
LOC: LABWHC1 07:52
PROVIDERS: ATTEND Family Medicine
DX: D50.0 Iron deficiency anemia secondary to blood loss (chronic) (principal); E87.1 Hypo-osmolality and hyponatremia
CPT/HCPCS: 36415; 80048; 82728; 83540; 83550; 85025

== ENCOUNTER → 2018-02-08 | Outpatient (CLI) | payer MEDICARE, BC ==
--- NOTE | 2018-02-08 14:50 | US ---
EXAMINATION TYPE: US venous doppler duplex LE RT DATE OF EXAM: 02/08/2018 2:37 PM COMPARISON: 01/07/2018 CLINICAL HISTORY: Rt Lower Ext, Pain and Swelling. right leg swelling SIDE PERFORMED: Right TECHNIQUE: The lower extremity deep venous system is examined utilizing real time linear array sonog donavan with graded compression, doppler sonography and color-flow sonography. VESSELS IMAGED: External Iliac Vein (EIV) Common Femoral Vein Deep Femoral Vein Greater Saphenous Vein * Femoral Vein Popliteal Vein Small Saphenous Vein * Proximal Calf Veins (* superficial vessels) Right Leg: Negative for DVT, possible popliteal fossa cyst right pop fossa= 2.5 x 0.8 x 2.0 cm Results called to Carol at Dr's office at time of exam IMPRESSION: 1. No diagnostic evidence of DVT as visualized. 2. Probable small popliteal fossa cyst
== END | disposition home or self-care (01) ==
LOC: RADUSWWP 14:05
PROVIDERS: ATTEND Orthopaedic Surgery
DX: M79.89 Other specified soft tissue disorders (principal); M25.551 Pain in right hip; Z96.641 Presence of right artificial hip joint; Z47.1 Aftercare following joint replacement surgery

== ENCOUNTER → 2018-02-12 | Outpatient (CLI) | payer MEDICARE, BC ==
[2018-02-12 17:26] LABS: Basophils % (A) 1 %; Eosinophils # (A) 0.2 k/uL (0-0.7); Eosinophils % (A) 5 %; HCT 32.1 % (34.0-46.0); HGB 10.1 gm/dL (11.4-16.0); Lymphocytes % (A) 22 %; MCH 27.2 pg (25.0-35.0); MCHC 31.5 g/dL (31.0-37.0); MCV 86.2 fL (80.0-100.0); Mean Platelet Volume 7.1; Monocytes # (A) 0.4 k/uL (0-1.0); Monocytes % (A) 8 %; Neutrophils # (A) 2.8 k/uL (1.3-7.7); Neutrophils % (A) 62 %; Platelet Count 280 k/uL (150-450); RBC 3.72 m/uL (3.80-5.40); RDW 14.5 % (11.5-15.5); WBC 4.5 k/uL (3.8-10.6)
[2018-02-12 17:38] LABS: Anion Gap 8 mmol/L; Blood Urea Nitrogen 10 mg/dL (7-17); Calcium 8.6 mg/dL (8.4-10.2); Carbon Dioxide 29 mmol/L (22-30); Chloride 97 mmol/L (98-107); Glucose 100 mg/dL (74-99); Potassium 4.2 mmol/L (3.5-5.1); Sodium 134 mmol/L (137-145)
[2018-02-13 01:46] LABS: Iron Saturation 10.22 (12.00-45.00)
== END | disposition home or self-care (01) ==
LOC: LABWHC1 16:47
PROVIDERS: ATTEND Family Medicine
DX: D50.0 Iron deficiency anemia secondary to blood loss (chronic) (principal); E87.1 Hypo-osmolality and hyponatremia
CPT/HCPCS: 36415; 80048; 82728; 83540; 83550; 85025

== ENCOUNTER → 2018-03-01 | Outpatient (CLI) | payer MEDICARE, BC ==
[2018-03-01 17:05] LABS: HCT 31.9 % (34.0-46.0); HGB 10.1 gm/dL (11.4-16.0); MCH 27.3 pg (25.0-35.0); MCHC 31.6 g/dL (31.0-37.0); MCV 86.2 fL (80.0-100.0); Mean Platelet Volume 7.2; Platelet Count 247 k/uL (150-450); RBC 3.69 m/uL (3.80-5.40); RDW 14.8 % (11.5-15.5); WBC 3.4 k/uL (3.8-10.6)
== END | disposition home or self-care (01) ==
LOC: LABWHC1 16:25
PROVIDERS: ATTEND Family Medicine
DX: E87.5 Hyperkalemia (principal); R89.9 Unspecified abnormal finding in specimens from other organs, systems and tissues
CPT/HCPCS: 36415; 84132; 85027

== ENCOUNTER → 2018-03-16 | Outpatient (CLI) | payer MEDICARE, BC ==
[2018-03-16 15:43] LABS: HCT 31.2 % (34.0-46.0); HGB 9.7 gm/dL (11.4-16.0); MCH 26.6 pg (25.0-35.0); MCV 85.8 fL (80.0-100.0); Mean Platelet Volume 7.6; Platelet Count 207 k/uL (150-450); RBC 3.64 m/uL (3.80-5.40); WBC 3.5 k/uL (3.8-10.6)
[2018-03-16 15:51] LABS: Anion Gap 4 mmol/L; Blood Urea Nitrogen 9 mg/dL (7-17); Carbon Dioxide 27 mmol/L (22-30); Chloride 102 mmol/L (98-107); Glucose 170 mg/dL (74-99); Sodium 133 mmol/L (137-145)
[2018-03-16 15:52] LABS: Calcium 8.7 mg/dL (8.4-10.2)
[2018-03-17 00:32] LABS: Iron Saturation 12.91 (12.00-45.00)
== END | disposition home or self-care (01) ==
LOC: LABWHC1 14:49
PROVIDERS: ATTEND Family Medicine
DX: D64.9 Anemia, unspecified (principal)
CPT/HCPCS: 36415; 80048; 82728; 83540; 83550; 85027

== ENCOUNTER → 2018-04-10 | Outpatient (CLI) | payer MEDICARE, BC ==
[2018-04-10 12:54] LABS: HCT 34.8 % (34.0-46.0); HGB 11.3 gm/dL (11.4-16.0); MCH 27.7 pg (25.0-35.0); MCHC 32.5 g/dL (31.0-37.0); MCV 85.4 fL (80.0-100.0); Mean Platelet Volume 7.7; Platelet Count 218 k/uL (150-450); RBC 4.07 m/uL (3.80-5.40); RDW 15.8 % (11.5-15.5); WBC 4.5 k/uL (3.8-10.6)
== END | disposition home or self-care (01) ==
LOC: LABWHC1 12:14
PROVIDERS: ATTEND Family Medicine
DX: D64.9 Anemia, unspecified (principal)
CPT/HCPCS: 36415; 82272; 85027

== ENCOUNTER → 2018-05-08 | Outpatient (CLI) | payer MEDICARE, BC ==
[2018-05-08 15:41] LABS: HCT 34.5 % (34.0-46.0); HGB 11.2 gm/dL (11.4-16.0); MCH 28.4 pg (25.0-35.0); MCHC 32.5 g/dL (31.0-37.0); MCV 87.6 fL (80.0-100.0); Platelet Count 213 k/uL (150-450); RBC 3.94 m/uL (3.80-5.40); RDW 15.6 % (11.5-15.5)
== END | disposition home or self-care (01) ==
LOC: LABWHC1 14:56
PROVIDERS: ATTEND Family Medicine
DX: Z00.01 Encounter for general adult medical examination with abnormal findings (principal)
CPT/HCPCS: 36415; 85027

== ENCOUNTER → 2018-08-01 | Outpatient (CLI) | payer MEDICARE, BC ==
[2018-08-01 11:15] LABS: Basophils % (A) 1 %; Eosinophils # (A) 0.3 k/uL (0-0.7); Eosinophils % (A) 7 %; HGB 12.7 gm/dL (11.4-16.0); Lymphocytes % (A) 23 %; MCH 29.5 pg (25.0-35.0); MCHC 32.5 g/dL (31.0-37.0); MCV 90.7 fL (80.0-100.0); Mean Platelet Volume 7.6; Monocytes # (A) 0.3 k/uL (0-1.0); Monocytes % (A) 8 %; Neutrophils # (A) 2.6 k/uL (1.3-7.7); Neutrophils % (A) 61 %; Platelet Count 208 k/uL (150-450); RBC 4.29 m/uL (3.80-5.40); RDW 13.7 % (11.5-15.5); WBC 4.3 k/uL (3.8-10.6)
[2018-08-01 17:46] LABS: Iron Saturation 32.38 (12.00-45.00)
[2018-08-01 17:53] LABS: Vitamin D 25 Hydroxy 17.8 ng/mL (30.0-100.0)
[2018-08-01 19:09] LABS: Albumin 3.8 g/dL (3.80-4.90); Albumin/Globulin Ratio 1.81 (1.20-2.10); Calcium 8.8 mg/dL (8.7-10.3); Globulin 2.1 g/dL (2.1-3.7); LDL Cholesterol,Calculated 66.2 mg/dL (0.0-131.0); Potassium 4.6 mmol/L (3.5-5.5); Total Bilirubin 0.3 mg/dL (0.2-1.2); Total Protein 5.9 g/dL (6.2-8.2); VLDL Calculation 13.8 mg/dL (5.00-40.00)
== END | disposition home or self-care (01) ==
LOC: LABWHC1 10:18
PROVIDERS: ATTEND Family Medicine
DX: Z00.01 Encounter for general adult medical examination with abnormal findings (principal); M81.0 Age-related osteoporosis without current pathological fracture; D50.9 Iron deficiency anemia, unspecified
CPT/HCPCS: 36415; 80053; 80061; 82306; 82728; 83540; 83550; 84443; 85025

== ENCOUNTER 2018-11-06 17:31 | Emergency (ER) | payer MEDICARE, BC ==
[2018-11-06 18:46] VITALS: RESP 18; TEMP 98.3
--- NOTE | 2018-11-06 19:22 | ED ---
General Adult HPI - General Source: patient Mode of arrival: ambulatory Limitations: no limitations <Rose Marie Cordero - Last Filed: 11/07/18 03:48> <Annette Hills - Last Filed: 11/07/18 21:49> - General Chief complaint: Extremity Injury, Upper Stated complaint: Lt arm swelling/sent by dr Time Seen by Provider: 11/06/18 19:05 - History of Present Illness Initial comments: 83-year-old female patient presents to the emergency department today for evaluation of left arm pain and swelling. Patient states she started having discomfort to the area over the left bicep approximately a week ago. Patient states area was swollen. States she is monitoring and however when she woke today the swelling had worsened and is now extending down to her hand. Patient denies any numbness or tingling. States that she did bump her bicep on door handle a couple of weeks ago but didn't think much of the injury. She denies any history of blood clot. Denies any fevers or chills with this. States she is relatively healthy does not take any medications. Does have a history of pancreatic cancer with a Whipple procedure in 1998 and she has been in remission since. Patient denies any recent rash, shortness breath, chest pain, abdominal pain, nausea, vomiting, diarrhea, constipation, back pain, numbness, tingling, dizziness, weakness, hematuria, dysuria, urinary urgency, urinary frequency, headache, visual changes, or any other complaints. (Rose Marie Cordero) - Related Data Home Medications Medication Instructions Recorded Confirmed Ascorbic Acid [Vitamin C] 1,000 mg PO 11/06/18 11/06/18 Biotin 5 mg PO 11/06/18 11/06/18 Calcium Carbonate [Calcium] 600 mg PO DAILY@1200 11/06/18 11/06/18 Cholecalciferol [Vitamin D3] 1,000 unit PO DAILY@1200 11/06/18 11/06/18 Ferrous Sulfate [Feosol] 325 mg PO QAM 11/06/18 11/06/18 Lutein 10 mg PO QAM 11/06/18 11/06/18 Multivitamins, Thera [Multivitamin 1 tab PO QA 11/06/18 11/06/18 (formulary)] Allergies Allergy/AdvReac Type Severity Reaction Status Date / Time bee pollen Allergy Unknown Verified 11/06/18 22:23 prednisone Allergy Nausea & Verified 11/06/18 22:23 Vomiting tramadol Allergy Hallucinati Verified 11/06/18 22:23 ons Influenza Virus Vaccines AdvReac Chills, Verified 11/06/18 22:23 flu-like symptoms Review of Systems ROS Other: All systems not noted in ROS Statement are negative. <Rose Marie Cordero - Last Filed: 11/07/18 03:48> ROS Other: All systems not noted in ROS Statement are negative. <Annette Hills P - Last Filed: 11/07/18 21:49> ROS Statement: Those systems with pertinent positive or pertinent negative responses have been documented in the HPI. Past Medical History Past Medical History: Cancer, Eye Disorder, Osteoarthritis (OA) Additional Past Medical History / Comment(s): DUODENAL CANCER 1998. CATARACTS. OSTEOPOROSIS. ON PO AB FOR UTI. History of Any Multi-Drug Resistant Organisms: None Reported Past Surgical History: Appendectomy, Cholecystectomy, Orthopedic Surgery, Tonsillectomy Additional Past Surgical History / Comment(s): "WHIPPLE PROCEDURE FOR DUODENAL CANCER." SANDRA BUNIONECTOMY. COLONOSCOPY Past Anesthesia/Blood Transfusion Reactions: No Reported Reaction Past Psychological History: No Psychological Hx Reported Smoking Status: Former smoker Past Alcohol Use History: Occasional Past Drug Use History: None Reported - Past Family History Brother(s) Family Medical History: Cancer Additional Family Medical History / Comment(s): X2 BROTHERS - 1 LUNG, 1 COLON Sister(s) Family Medical History: Cancer Additional Family Medical History / Comment(s): lung cancer <Rose Marie Cordero M - Last Filed: 11/07/18 03:48> General Exam Limitations: no limitations General appearance: alert, in no apparent distress, other (This is a well- developed, well-nourished elderly female patient in no acute distress. Vital signs upon presentation are temperature 98.3F, pulse 70, respirations 18, blood pressure 151/67, pulse ox 99% on room air.) Eye exam: Present: normal appearance, PERRL, EOMI. Absent: scleral icterus, conjunctival injection, periorbital swelling ENT exam: Present: normal exam, normal oropharynx, mucous membranes moist Respiratory exam: Present: normal lung sounds bilaterally. Absent: respiratory distress, wheezes, rales, rhonchi, stridor Cardiovascular Exam: Present: regular rate, normal rhythm, normal heart sounds. Absent: systolic murmur, diastolic murmur, rubs, gallop, clicks Extremities exam: Present: full ROM, tenderness (Tenderness over the left bicep), normal capillary refill, other (There is generalized swelling noted to the left arm starting just above the left bicep and extending down to the fi ngertips. Skin is pink, warm, dry. Cap refills less than 3 seconds. Radial pulses 2+ and equal bilaterally. No erythema, wounds, or evidence of abscess.). Absent: normal inspection, pedal edema, joint swelling, calf tenderness Neurological exam: Present: alert, oriented X3, CN II-XII intact Psychiatric exam: Present: normal affect, normal mood Skin exam: Present: warm, dry, intact, normal color. Absent: rash <Rose Marie Cordero - Last Filed: 11/07/18 03:48> Course Vital Signs 11/06/18 11/06/18 11/06/18 18:44 20:46 23:00 Temperature 98.3 F Pulse Rate 70 65 59 L Respiratory 18 18 18 Rate Blood Pressure 151/67 148/89 126/56 O2 Sat by Pulse 99 99 98 Oximetry Medical Decision Making - Lab Data Result diagrams: 11/06/18 21:30 11/06/18 21:30 - Radiology Data Radiology results: report reviewed <Rose Marie Cordero - Last Filed: 11/07/18 03:48> - Lab Data Result diagrams: 11/06/18 21:30 11/06/18 21:30 <Annette Hills - Last Filed: 11/07/18 21:49> - Medical Decision Making 83-year-old female patient presented to the emergency department today for evaluation of swelling to the left upper arm. Physical examination did reveal generalized swelling of the arm with significant swelling and tenderness over the left bicep. There is no erythema or evidence of cellulitis. No evidence of abscess. Ultrasound was initially obtained to rule out DVT, this was negative. We did obtain labs which were negative for any evidence of infection. Ultrasound of the left bicep was obtained showed no mass or fluid collection. Patient symptoms are concerning for left bicep muscle tear. She'll be discharged home at this time to follow-up with protection specialist for further evaluation. She is instructed to take Tylenol Motrin for pain control. She is instructed to rest, ice, and elevate the arm. Return parameters were discussed in detail patient verbalizes understanding and agrees this plan. (Rose Marie Cordero) I personally saw and evaluated the patient. Patient has some significant swelling in the left arm, she has some tenderness to the left bicep. The high suspicion for possible bicep tendon tear. Patient is neurovascularly intact w ith no signs of compartment syndrome. At this time patient's comfortable with the plan for discharge home and outpatient follow-up with orthopedics. Patient has an established relationship with Dr. Ventura who performed her hip arthroplasty last year. (Annette Hills) - Lab Data Lab Results 11/06/18 11/06/18 11/06/18 Range/Units 21:30 21:30 21:30 WBC 4.3 (3.8-10.6) k/uL RBC 3.97 (3.80-5.40) m/uL Hgb 11.8 (11.4-16.0) gm/dL Hct 36.1 (34.0-46.0) % MCV 90.8 (80.0-100.0) fL MCH 29.6 (25.0-35.0) pg MCHC 32.6 (31.0-37.0) g/dL RDW 13.3 (11.5-15.5) % Plt Count 200 (150-450) k/uL Neutrophils % 59 % Lymphocytes % 24 % Monocytes % 7 % Eosinophils % 7 % Basophils % 1 % Neutrophils # 2.6 (1.3-7.7) k/uL Lymphocytes # 1.1 (1.0-4.8) k/uL Monocytes # 0.3 (0-1.0) k/uL Eosinophils # 0.3 (0-0.7) k/uL Basophils # 0.0 (0-0.2) k/uL Sodium 136 L (137-145) mmol/L Potassium 4.3 (3.5-5.1) mmol/L Chloride 104 (98-107) mmol/L Carbon Dioxide 29 (22-30) mmol/L Anion Gap 3 mmol/L BUN 7 (7-17) mg/dL Creatinine 0.48 L (0.52-1.04) mg/dL Est GFR (CKD-EPI)AfAm >90 (>60 ml/min/1.73 sqM) Est GFR (CKD-EPI)NonAf >90 (>60 ml/min/1.73 sqM) Glucose 108 H (74-99) mg/dL Plasma Lactic Acid Jerardo 1.1 (0.7-2.0) mmol/L Calcium 8.8 (8.4-10.2) mg/dL Total Bilirubin 0.3 (0.2-1.3) mg/dL AST 29 (14-36) U/L ALT 17 (9-52) U/L Alkaline Phosphatase 70 (38-126) U/L Total Protein 5.7 L (6.3-8.2) g/dL Albumin 3.1 L (3.5-5.0) g/dL - Radiology Data Venous Doppler duplex of the left upper extremities was obtained. Report was reviewed in its entirety. Impression by Dr. Poonam Driver shows negative for DVT. Ultrasound of the left bicep region was obtained and showed no evidence for fluid collection or mass. (Rose Marie Cordero) Disposition Is patient prescribed a controlled substance at d/c from ED?: No Time of Disposition: 02:04 <Rose Marie Cordero - Last Filed: 11/07/18 03:48> <Annette Hills - Last Filed: 11/07/18 21:49> Clinical Impression: Tear of left biceps muscle Disposition: HOME SELF-CARE Condition: Good Instructions (If sedation given, give patient instructions): Muscle Strain (ED) Additional Instructions: You most likely have a muscle tear. Follow up with protection specialist for recheck as soon as possible. Keep arm elevated. Keep ice over the painful areas. Take anti-inflammatory medication for pain. Return to the emergency department immediately for any new, worsening, or concerning symptoms. Referrals: Jonatan Solis DO [Primary Care Provider] - 1-2 days Deshawn Ventura DO [Doctor of Osteopathic Medicine] - 1-2 days
--- NOTE | 2018-11-06 20:40 | US ---
EXAMINATION TYPE: US venous doppler duplex UE LT DATE OF EXAM: 11/06/2018 COMPARISON: NONE CLINICAL HISTORY: Pain. Left arm pain, swelling and redness. SIDE PERFORMED: Left. FINDINGS: Grayscale, color doppler, spectral doppler imaging performed of the deep veins of the left upper extremity. There is normal flow, compressibility and vascular waveforms. IMPRESSION: NEGATIVE FOR DVT, LEFT UPPER EXTREMITY.
[2018-11-06] MEDS ORDERED: ACETAMINOPHEN TAB 325 MG TAB PO STA (21:38)
[2018-11-06 21:53] LABS: Basophils % (A) 1 %; Eosinophils # (A) 0.3 k/uL (0-0.7); Eosinophils % (A) 7 %; HCT 36.1 % (34.0-46.0); HGB 11.8 gm/dL (11.4-16.0); Lymphocytes # (A) 1.1 k/uL (1.0-4.8); Lymphocytes % (A) 24 %; MCH 29.6 pg (25.0-35.0); MCHC 32.6 g/dL (31.0-37.0); MCV 90.8 fL (80.0-100.0); Mean Platelet Volume 7.3; Monocytes # (A) 0.3 k/uL (0-1.0); Monocytes % (A) 7 %; Neutrophils # (A) 2.6 k/uL (1.3-7.7); Neutrophils % (A) 59 %; Platelet Count 200 k/uL (150-450); RBC 3.97 m/uL (3.80-5.40); RDW 13.3 % (11.5-15.5); WBC 4.3 k/uL (3.8-10.6)
[2018-11-06 21:55] LABS: ALT 17 U/L (9-52); AST 29 U/L (14-36); Albumin 3.1 g/dL (3.5-5.0); Alkaline Phosphatase 70 U/L (38-126); Anion Gap 3 mmol/L; Blood Urea Nitrogen 7 mg/dL (7-17); Calcium 8.8 mg/dL (8.4-10.2); Carbon Dioxide 29 mmol/L (22-30); Chloride 104 mmol/L (98-107); Glucose 108 mg/dL (74-99); Potassium 4.3 mmol/L (3.5-5.1); Sodium 136 mmol/L (137-145); Total Bilirubin 0.3 mg/dL (0.2-1.3); Total Protein 5.7 g/dL (6.3-8.2)
[2018-11-06 23:03] VITALS: BP 126/56; PULSE 59
--- NOTE | 2018-11-07 08:06 | US ---
EXAMINATION TYPE: US extremity nonvasc mass LT DATE OF EXAM: 11/06/2018 COMPARISON: NONE CLINICAL HISTORY: Pain/swelling. Left arm swelling and redness. No mass visualized. IMPRESSION: Soft tissue edema noted without underlying mass identified.
== END 2018-11-07 02:09 | disposition home or self-care (01) ==
LOC: EC 17:31
DX: S46.212A Strain of muscle, fascia and tendon of other parts of biceps, left arm, initial encounter (principal); M19.90 Unspecified osteoarthritis, unspecified site; Z85.09 Personal history of malignant neoplasm of other digestive organs; Z87.891 Personal history of nicotine dependence; Z79.899 Other long term (current) drug therapy; Z91.030 Bee allergy status; Z88.5 Allergy status to narcotic agent; Z88.8 Allergy status to other drugs, medicaments and biological substances; Z88.7 Allergy status to serum and vaccine
CPT/HCPCS: 36415; 80053; 83605; 85025; 87040; 99284

== ENCOUNTER → 2021-08-19 | Outpatient (CLI) | payer MEDICARE, BC ==
[2021-08-19 15:05] LABS: HGB 12.3 g/dL (12.0-15.0); MCH 30.3 pg (27.0-32.0); MCHC 32.4 g/dL (32.0-37.0); MCV 93.6 fL (80.0-97.0); Mean Platelet Volume 10.8 fL (9.5-12.2); Platelet Count 196 X 10*3/uL (140-440); RBC 4.06 X 10*6/uL (4.10-5.20); RDW 12.9 % (11.5-14.5); WBC 3.56 X 10*3/uL (4.50-10.00)
[2021-08-19 15:16] LABS: ALT 14 U/L (8-44); AST 41 U/L (13-35); BUN/Creat Ratio 19.67 Ratio (12.00-20.00); Blood Urea Nitrogen 11.8 mg/dL (9.0-27.0); Carbon Dioxide 24.7 mmol/L (20.0-27.5); Chloride 101 mmol/L (96-109); Chol/HDL Ratio 1.97 Ratio; Glucose 87 mg/dL (70-110); LDL Cholesterol,Calculated 80.5 mg/dL (0.0-131.0); Non-African American GFR(CKD) 83.7 (60.0-200.0); Potassium 4.3 mmol/L (3.5-5.5); Sodium 137 mmol/L (135-145); VLDL Calculation 18.48 mg/dL (5.00-40.00)
== END | disposition home or self-care (01) ==
LOC: LABWHC1 07:51
PROVIDERS: ATTEND Family Medicine
DX: E55.9 Vitamin D deficiency, unspecified (principal); E78.5 Hyperlipidemia, unspecified; R73.03 Prediabetes
CPT/HCPCS: 36415; 80048; 80061; 82306; 83036; 84450; 84460; 85027

== ENCOUNTER → 2021-11-25 | Outpatient (CLI) | payer MEDICARE, BC | END | disposition home or self-care (01) | LOC: LABWHC1 14:47 | PROVIDERS: ATTEND Family Medicine | DX: E55.9 Vitamin D deficiency, unspecified (principal); Z53.9 Procedure and treatment not carried out, unspecified reason ==

== ENCOUNTER → 2021-11-30 | Outpatient (CLI) | payer MEDICARE, BC ==
[2021-11-30 14:33] LABS: Basophils # (A) 0.03 X 10*3/uL (0.00-0.10); Basophils % (A) 0.8 %; Eosinophils # (A) 0.25 X 10*3/uL (0.04-0.35); Eosinophils % (A) 6.7 %; HCT 35.7 % (37.2-46.3); HGB 11.6 g/dL (12.0-15.0); Immature Grans, Automated 0.3 %; Lymphocytes # (A) 0.99 X 10*3/uL (0.90-5.00); Lymphocytes % (A) 26.5 %; MCH 29.8 pg (27.0-32.0); MCHC 32.5 g/dL (32.0-37.0); MCV 91.8 fL (80.0-97.0); Mean Platelet Volume 11.1 fL (9.5-12.2); Monocytes # (A) 0.37 X 10*3/uL (0.20-1.00); Monocytes % (A) 9.9 %; NRBC Per 100 WBC 0 /100 WBCS (0.0-0.0); Neutrophils # (A) 2.08 X 10*3/uL (1.80-7.70); Neutrophils % (A) 55.8 %; Platelet Count 194 X 10*3/uL (140-440); RBC 3.89 X 10*6/uL (4.10-5.20); RDW 12.9 % (11.5-14.5); WBC 3.73 X 10*3/uL (4.50-10.00)
== END | disposition home or self-care (01) ==
LOC: LABWHC1 10:15
PROVIDERS: ATTEND Family Medicine
DX: E55.9 Vitamin D deficiency, unspecified (principal); D72.819 Decreased white blood cell count, unspecified; R73.03 Prediabetes
CPT/HCPCS: 36415; 82306; 83036; 85025

== ENCOUNTER → 2022-03-04 | Outpatient (CLI) | payer MEDICARE, BC ==
[2022-03-04 14:20] LABS: Basophils # (A) 0.04 X 10*3/uL (0.00-0.10); Basophils % (A) 1.1 %; Eosinophils # (A) 0.21 X 10*3/uL (0.04-0.35); HCT 38.7 % (37.2-46.3); HGB 12.3 g/dL (12.0-15.0); Immature Grans, Automated 0 %; Lymphocytes # (A) 0.99 X 10*3/uL (0.90-5.00); Lymphocytes % (A) 28.3 %; MCH 29.6 pg (27.0-32.0); MCHC 31.8 g/dL (32.0-37.0); Monocytes # (A) 0.31 X 10*3/uL (0.20-1.00); Monocytes % (A) 8.9 %; NRBC Per 100 WBC 0 /100 WBCS (0.0-0.0); Neutrophils # (A) 1.95 X 10*3/uL (1.80-7.70); Neutrophils % (A) 55.7 %; Platelet Count 200 X 10*3/uL (140-440); RBC 4.16 X 10*6/uL (4.10-5.20); RDW 12.8 % (11.5-14.5)
== END | disposition home or self-care (01) ==
LOC: LABWHC1 10:33
PROVIDERS: ATTEND Family Medicine
DX: E55.9 Vitamin D deficiency, unspecified (principal); D72.819 Decreased white blood cell count, unspecified; R73.03 Prediabetes
CPT/HCPCS: 36415; 82306; 83036; 85025

== ENCOUNTER → 2022-06-07 | Outpatient (CLI) | payer MEDICARE, BC ==
[2022-06-07 14:24] LABS: HCT 35.7 % (37.2-46.3); HGB 11.7 g/dL (12.0-15.0); MCH 30.2 pg (27.0-32.0); MCHC 32.8 g/dL (32.0-37.0); Mean Platelet Volume 11.1 fL (9.5-12.2); NRBC Per 100 WBC 0 /100 WBCS (0.0-0.0); Platelet Count 196 X 10*3/uL (140-440); RBC 3.88 X 10*6/uL (4.10-5.20); WBC 4.26 X 10*3/uL (4.50-10.00)
[2022-06-07 14:52] LABS: ALT 16 U/L (8-44); AST 64 U/L (13-35); African American GFR (CKD) 89.7 (60.0-200.0); Albumin 3.7 g/dL (3.8-4.9); Albumin/Globulin Ratio 1.43 (1.60-3.17); Alkaline Phosphatase 108 U/L (41-126); BUN/Creat Ratio 12.67 Ratio (12.00-20.00); Blood Urea Nitrogen 9.1 mg/dL (9.0-27.0); Calcium 8.7 mg/dL (8.7-10.3); Carbon Dioxide 26.7 mmol/L (20.0-27.5); Chloride 97 mmol/L (96-109); Chol/HDL Ratio 1.84 Ratio; Globulin 2.6 g/dL (1.6-3.3); Glucose 97 mg/dL (70-110); LDL Cholesterol,Calculated 66.7 mg/dL (0.0-131.0); Non-African American GFR(CKD) 77.4 (60.0-200.0); Potassium 4.2 mmol/L (3.5-5.5); Sodium 133 mmol/L (135-145); Total Protein 6.2 g/dL (6.2-8.2)
[2022-06-07 17:36] LABS: Microalbumin Creatinine Ratio <30 mg/g Creat (0-30); Urine Creatinine 64.3 mg/dL (28.0-217.0)
== END | disposition home or self-care (01) ==
LOC: LABWHC1 09:23
PROVIDERS: ATTEND Family Medicine
DX: Z00.01 Encounter for general adult medical examination with abnormal findings (principal); E55.9 Vitamin D deficiency, unspecified; E11.9 Type 2 diabetes mellitus without complications
CPT/HCPCS: 36415; 80053; 80061; 82043; 82306; 82570; 83036; 85027

== ENCOUNTER 2023-07-07 14:54 | Inpatient (IN) | payer MEDICARE, BC ==
[2023-07-07] MEDS ORDERED: SODIUM CHLORIDE 0.9% 1,000 ML IV ONE (15:00)
[2023-07-07] MEDS ORDERED: fentaNYL (PF) 50 MCG/ML 2 ML AMP IVP STA (15:02)
[2023-07-07] MEDS ORDERED: DIPH,PERTUS(ACELL)TETVAC-LF 0.5 ML VIAL IM ONE (15:04)
[2023-07-07 15:55] LABS: Basophils # (A) 0.1 k/uL (0-0.2); Basophils % (A) 0 %; Eosinophils # (A) 0.1 k/uL (0-0.7); Eosinophils % (A) 0 %; HCT 46.2 % (34.0-46.0); HGB 15.3 gm/dL (11.4-16.0); Lymphocytes % (A) 6 %; MCH 28.9 pg (25.0-35.0); MCHC 33.1 g/dL (31.0-37.0); MCV 87.3 fL (80.0-100.0); Mean Platelet Volume 8.6; Monocytes # (A) 0.7 k/uL (0-1.0); Monocytes % (A) 4 %; Neutrophils # (A) 14.6 k/uL (1.3-7.7); Neutrophils % (A) 88 %; Platelet Count 275 k/uL (150-450); RBC 5.29 m/uL (3.80-5.40); RDW 15.4 % (11.5-15.5); WBC 16.6 k/uL (3.8-10.6)
[2023-07-07 16:03] LABS: INR 4.4 (<1.2); Prothrombin Time 42.9 sec (10.0-12.5)
[2023-07-07 16:04] LABS: Partial Thromboplastin Time 29.5 sec (22.0-30.0)
[2023-07-07 16:17] LABS: ALT 37 U/L (4-34); African American GFR (CKD) >90 (>60 ml/min/1.73 sqM); Albumin 3.6 g/dL (3.5-5.0); Alcohol <10 mg/dL; Anion Gap 14 mmol/L; Blood Urea Nitrogen 36 mg/dL (7-17); Calcium 9.4 mg/dL (8.4-10.2); Carbon Dioxide 24 mmol/L (22-30); Chloride 95 mmol/L (98-107); Glucose 156 mg/dL (74-99); Non-African American GFR(CKD) 85 (>60 ml/min/1.73 sqM); Sodium 133 mmol/L (137-145); Total Bilirubin 1.6 mg/dL (0.2-1.3); Total Protein 7.7 g/dL (6.3-8.2)
[2023-07-07 16:19] LABS: Appearance,Urine Cloudy (Clear); Bacteria,Urine Moderate /hpf; Bilirubin,Urine Negative (Negative); Blood,Urine Moderate (Negative); Color,Urine Yellow; Glucose,Urine (UA) Negative (Negative); Hyaline Casts,Urine 4 /lpf (0-2); Ketones,Urine 2+ (Negative); Leukocyte Esterase,Urine Moderate (Negative); Mucus,Urine Many /hpf; Nitrite,Urine Negative (Negative); Protein,Urine 1+ (Negative); RBC,Urine 7 /hpf (0-5); Specific Gravity,Urine 1.023 (1.001-1.035); WBC,Urine 59 /hpf (0-5)
[2023-07-07 16:21] LABS: AST 141 U/L (14-36); Creatine Kinase 1141 U/L (30-135)
--- NOTE | 2023-07-07 16:21 | XR ---
EXAMINATION TYPE: XR femur RT DATE OF EXAM: 07/07/2023 4:14 PM CLINICAL INDICATION:Female, 87 years old with history of pain; [facility] TECHNIQUE: AP pelvis, 2 views right hip, 4 views right femur. FINDINGS: Generalized osteopenia. Degenerative changes of the lower lumbar spine, SI joints, left hip . Right total hip arthroplasty, appears intact and normally aligned. No evidence of acute fracture or hardware failure. Moderate arterial vascular calcifications. Phleboliths right pelvis. IMPRESSION: Pelvis, right hip, right femur: 1. No evidence of acute fracture or dislocation. 2. Right total hip arthroplasty without complication.
--- NOTE | 2023-07-07 16:21 | XR ---
EXAMINATION TYPE: XR Hip RT and AP Pelvis DATE OF EXAM: 07/07/2023 4:14 PM CLINICAL INDICATION:Female, 87 years old with history of pain; [facility] COMPARISON: None. TECHNIQUE: AP pelvis, 2 views right hip, 4 views right femur. FINDINGS: Generalized osteopenia. Degenerative changes of the lower lumbar spine, SI joints, left hip . Right total hip arthroplasty, appears intact and normally aligned. No evidence of acute fracture or hardware failure. Moderate arterial vascular calcifications. Phleboliths right pelvis. IMPRESSION: Pelvis, right hip, right femur: 1. No evidence of acute fracture or dislocation. 2. Right total hip arthroplasty without complication.
[2023-07-07 16:22] LABS: Alkaline Phosphatase 551 U/L (38-126); Magnesium 2.4 mg/dL (1.6-2.3); Potassium 4.8 mmol/L (3.5-5.1)
[2023-07-07 16:24] LABS: Amphetamine Screen,Urine Not Detected (NotDetected); Barbiturate Screen,Urine Not Detected (NotDetected); Benzodiazepines Screen,Urine Not Detected (NotDetected); Cocaine Screen,Urine Not Detected (NotDetected); Methadone Screen, Urine Not Detected (NotDetected); Opiate Screen,Urine Not Detected (NotDetected); Oxycodone Screen, Urine Not Detected (NotDetected); Phencyclidine Screen,Urine Not Detected (NotDetected); Tricyclic Antidepressant,Urine Not Detected (NotDetected); Urn Cannabinoid Scrn Not Detected (NotDetected)
--- NOTE | 2023-07-07 16:27 | XR ---
EXAM: XR chest 1V portable CLINICAL INDICATION:Female, 87 years old with history of pain; [facility] COMPARISON: None TECHNIQUE: Chest single view. FINDINGS: Lines/tubes/devices: EKG leads overlie the chest. No indwelling lines are seen. Cardiomediastinum: Cardiac silhouette appears upper normal in size. Partially calcified aorta. Unremarkable mediastinal silhouette. Vasculature: No increased pulmonary vasculature. Lungs/pleura: Mild hyperinflation and chronic senescent changes. Probable calcified lymph node left hilum and lung nodule left upper lobe. No acute consolidation, pleural effusion, or thorax demonstrated. Bones/soft tissues: Bony thorax appears grossly intact as seen with mild degenerative changes of the shoulders, moderate degenerative change of the spine with mild apex right scoliosis in the upper lumbar region.. Regional soft tissues appear unremarkable. IMPRESSION: No acute cardiopulmonary findings.
--- NOTE | 2023-07-07 16:32 | XR ---
EXAMINATION TYPE: XR shoulder limited RT DATE OF EXAM: 07/07/2023 4:08 PM CLINICAL INDICATION:Female, 87 years old with history of pain; [facility] COMPARISON: None TECHNIQUE: 2 views right shoulder FINDINGS: Generalized osteopenia. Mild chronic degenerative changes of the glenohumeral and acromioclavicular j oints. No evidence of acute fracture, dislocation or destructive bone lesion. Unremarkable soft tissu es. IMPRESSION: No acute osseous pathology.
[2023-07-07] MEDS ORDERED: SODIUM CHLORIDE 0.9% 1,000 ML IV STA (16:36)
--- NOTE | 2023-07-07 18:17 | CT ---
EXAMINATION TYPE: CT brain cspine wo con CT DLP: 1411.5 mGycm, Automated exposure control for dose reduction was used. DATE OF EXAM: 07/07/2023 5:43 PM COMPARISON: None. CLINICAL INDICATION:Female, 87 years old with history of Altered mental status; ams, fall TECHNIQUE: Brain: Multiple axial CT images of the brain were obtained without IV contrast. Cspine: Axial CT images from the skull base to the inferior aspect of T2 we obtained without intraven ous contrast. Coronal and sagittal reformatted images were also reviewed. FINDINGS: Brain: Extra-axial spaces: No abnormal extra-axial fluid collections. Ventricular system: Dilatation in proportion to degree of cerebral atrophy. Cerebral parenchyma: No acute intraparenchymal hemorrhage or mass effect. Moderate generalized brain atrophy. No loss of torres-white matter distinction to suggest acute infarct. There are mild patchy hy poattenuating areas seen throughout the cerebral white matter, nonspecific but usually seen with metal container maker an microvascular ischemia. Cerebellum: No acute abnormality. Mass effect: No evidence of midline shift. Intracranial vasculature: Atherosclerotic calcifications of the larger arteries near the skull base. Soft tissues: Unremarkable. Calvarium/osseous structures: No acute calvarial fracture seen. Paranasal sinuses and mastoid air cells: Mild mucosal thickening right maxillary sinus and some bilat eral ethmoid air cells. Visualized orbits: Orbital contents appear grossly intact. Radiodensities along the anterior left gl obe, likely related to prior ophthalmologic surgery. MRI is more sensitive for detecting acute processes such as infarct, and may be considered if clinica lly warranted. Cervical spine: Fracture: None. Osseous structures, spinal canal/neural foramina: Generalized osteopenia. Mild/moderate multilevel de generative disc disease and facet arthrosis. Near complete facet fusion noted at the C3 C4 C5 levels. Disc osteophyte complexes at the same levels cause mild canal and neural foraminal stenoses. Vertebral alignment: Within normal limits. Neck soft tissues: Prevertebral soft tissues are within normal limits. Calcifications in the bilatera l cervical carotid arteries greatest at the bifurcations. Other: Lung apices show no acute infiltrate or pneumothorax. Partially visualized small left pleural effusion. IMPRESSION: CT head: No acute intracranial abnormality. Atrophy and chronic microvascular ischemic changes. CT cervical spine: No evidence of cervical spine fracture. Mild/moderate multilevel cervical spondylosis.
--- NOTE | 2023-07-07 18:47 | CT ---
EXAMINATION TYPE: CT ChestAbdPelvis w con CT DLP: combined DLP 644.1 mGycm, Automated exposure control for dose reduction was used. DATE OF EXAM: 07/07/2023 5:43 PM COMPARISON: None. CLINICAL INDICATION:Female, 87 years old with history of pain; [facility], ams, fall Technique: Multiple axial images of the chest, abdomen, and pelvis were obtained. Two-dimensional cor onal and sagittal reconstructions were obtained. Contrast used:100 mL of Isovue 300 with IV Contrast, Oral contrast used: without Oral Contrast Findings: CHEST: LUNGS/ PLEURA: Small left pleural effusion. Strandy linear opacities in the left lower lobe and lingu la, likely atelectasis. Trace dependent atelectasis in the posterior right lung. No acute consolidati ve process or evidence of pneumothorax. AIRWAY: Patent and unremarkable. HEART: Mildly enlarged.. No pericardial effusion. MEDIASTINUM: No gross evidence of adenopathy. VASCULATURE: Mild atherosclerotic calcification of the aorta, no evidence of aneurysm or dissection. Grossly preserved enhancement of the pulmonary arteries in the limits of the exam. MUSCULOSKELETAL: No acute displaced rib fractures. Generalized osteopenia and mild degenerative justice es. See separate CT spine report. SOFT TISSUES/LYMPH NODES: Unremarkable. LOWER NECK: No significant findings. ABDOMEN: ABDOMEN LIVER, GALLBLADDER, BILE DUCTS: Relatively large area of heterogeneous enhancement within the left he patic lobe, difficult to measure precisely but about 8.4 cm transverse, 5.8 cm AP, 6.4 cm craniocauda l. Margins are ill-defined. Portal vein and splenic vein are enhancing. Gallbladder is not readily vi sualized, could be absent, contracted, or possibly involved by mass. The CBD is not clearly visualize d. Soft tissues of the irene hepatis are heterogeneous in appearance. There is intrahepatic biliary d ilatation seen, most evident in the right lobe with largest duct approaching 7.2 mm. PANCREAS: Pancreatic head is not well visualized, lies in proximity to the liver mass. The visualized pancreatic duct in the body and tail appear cystic and dilated. SPLEEN: Slightly heterogeneous appearance without definite mass. ADRENAL GLANDS: Unremarkable right adrenal. Left adrenal appears mildly thickened without discrete ma ss.. KIDNEYS AND URETERS: Kidneys enhance symmetrically. No evidence of renal mass. Mildly prominent left extrarenal pelvis without dilated ureters seen. PELVIS: Limited evaluation due to streak artifact from hip prosthesis. BLADDER: Grossly unremarkable as seen. REPRODUCTIVE: Not visualized. ABDOMEN & PELVIS STOMACH AND BOWEL: Stomach and proximal small bowel are not distended. Lesser curvature of the stomac h abuts the region of the left hepatic lobe mass, malignant involvement cannot be excluded. The more distal small bowel loops are nondistended. Appendix is not seen with certainty but no definite focal inflammatory process in the right lower quadrant. Moderate stool throughout the colon, greatest dista lly. No definite focal abnormality. PERITONEUM: No evidence of pneumoperitoneum or free fluid. VASCULATURE: Moderate atherosclerotic calcification throughout the abdominal aorta and branches, with mild/moderate narrowing of the celiac, superior mesenteric, bilateral renal arteries. No evidence of AAA. Mild disease throughout the iliac arterial trees. MUSCULOSKELETAL: Please refer to separate spine report. Pelvis appears symmetric and intact. Right to viviane hip arthroplasty, appears intact and normally aligned. Mild degenerative change of the SI joints and left hip. LYMPH NODES: No gross evidence for lymphadenopathy. SOFT TISSUE/ABDOMINAL WALL: Generalized cachectic appearance, with lack of fat limiting intrinsic con trast for the examination. IMPRESSION: 1. No definite acute traumatic injury demonstrated in the chest, abdomen, or pelvis. 2. Small left pleural effusion with adjacent atelectasis. 3. Large heterogeneous mass in the left hepatic lobe, possibly metastatic or could reflect primary h epatic or biliary malignancy. There is intrahepatic biliary dilatation in the right lobe. 4. Pancreatic head not clearly seen, may be involved by #3. There is cystic dilatation of the pancre atic duct in the body and tail. 5. Other chronic and likely incidental findings, as described above.
--- NOTE | 2023-07-07 18:48 | CT ---
EXAMINATION TYPE: CT thor lumbar spine w con CT DLP: combined DLP 644.1 mGycm, Automated exposure control for dose reduction was used. DATE OF EXAM: 07/07/2023 5:43 PM COMPARISON: . CLINICAL INDICATION:Female, 87 years old with history of pain; [facility], fall, ams TECHNIQUE: Multiple axial images were obtained from the midportion of T11 through the sacroiliac declan nts. Soft tissue and bone windows in coronal and sagittal planes were obtained and reviewed. 3-D ref ormats of the bones were created on a separate workstation and submitted for review. Contrast used:100 mL of Isovue 300 with IV Contrast, none. Oral contrast used: none. FINDINGS: Generalized osteopenia. No visualized lytic/blastic lesion. There is mild multilevel degenerative disc disease throughout the thoracic spine, without evidence of acute fracture or traumatic malalignment. Osseous spinal canal and neural foramina appear patent. There are 5 nonrib-bearing lumbar-type vertebral bodies. No evidence of acute compression fracture or malalignment. Moderate multilevel degenerative disc disease with disc height loss and endplate sclerosis, mostly at L1-L2, L2-L3, L4-L5. Posterior disc osteophyte complexes cause mild spinal canal and neural foramina l stenoses at each level. Please refer to separate CT body report for further description of findings. IMPRESSION: 1. No evidence of acute thoracolumbar spine fracture or traumatic malalignment. 2. Mild/moderate multilevel spondylosis.
[2023-07-07] MEDS ORDERED: ACETAMINOPHEN TAB 325 MG TAB PO PRN (19:58)
[2023-07-07] MEDS ORDERED: NALOXONE 0.4 MG/ML 1 ML VIAL IV PRN (19:58)
--- NOTE | 2023-07-07 20:00 | ED ---
General Adult HPI - General Chief complaint: Fall Stated complaint: ALTERD MENTAL STATE Time Seen by Provider: 07/07/23 14:59 Source: patient, RN notes reviewed, old records reviewed Mode of arrival: EMS Limitations: altered mental status - History of Present Illness Initial comments: Patient is a 87-year-old female found down at home for his suspected 3-4 days and was unable to get up. Patient states she remembers falling but then was unable to stand back up due to right-sided pain. Was found on her right side. Baseline is alert and oriented 4. Does not ambulate with a walker or cane. Is not on any no blood thinners. Has a history of Whipple procedure. Endorses right hip pain at this time as well as right thigh pain where there is bruising as well as pressure wounds. Denies any headache, chest pain. Endorses some diffuse spinal pain. Denies any abdominal pain. Presents for further evaluation of this time. Unknown what caused the fall. No focal neurological deficits at this time. Patient was a wellness check his no one had heard from her and multiple days. Was last seen on Monday or Monday of this week. It is currently Monday. - Related Data Home Medications Medication Instructions Recorded Confirmed Biotin 5 mg PO DAILY 11/06/18 07/07/23 Multivitamins, Thera [Multivitamin 1 tab PO DAILY 11/06/18 07/07/23 (formulary)] Calcium Carbonate/Vitamin D3 1 tab PO DAILY 07/07/23 07/07/23 [Caltrate 600 Plus D3 20 Mcg (800 Iu)] Cholecalciferol [Vitamin D3 (25 150 mcg PO DAILY 07/07/23 07/07/23 Mcg = 1000 Iu)] Lutein 20 mg PO DAILY 07/07/23 07/07/23 Vitamin C Er 500mg 500 mg PO DAILY 07/07/23 07/07/23 Allergies Allergy/AdvReac Type Severity Reaction Status Date / Time bee pollen Allergy Unknown Verified 07/07/23 17:22 Influenza Virus Vaccines AdvReac Chills, Verified 07/07/23 17:22 flu-like symptoms prednisone AdvReac Nausea & Verified 07/07/23 17:22 Vomiting tramadol AdvReac Hallucinati Verified 07/07/23 17:22 ons Review of Systems ROS Statement: Those systems with pertinent positive or pertinent negative responses have been documented in the HPI. Review of Systems: CONST: Denies fever EYES: Denies blurry vision ENT: Denies nasal congestion C/V: Denies Chest pain RESP: Denies shortness of breath GI: Denies abdominal pain : Denies dysuria SKIN: Denies rash. MSK: Endorses joint pain NEURO: Denies headache ROS Other: All systems not noted in ROS Statement are negative. Past Medical History Past Medical History: Cancer, Eye Disorder, Osteoarthritis (OA) Additional Past Medical History / Comment(s): DUODENAL CANCER 1998. CATARACTS. OSTEOPOROSIS. ON PO AB FOR UTI. History of Any Multi-Drug Resistant Organisms: None Reported Past Surgical History: Appendectomy, Cholecystectomy, Orthopedic Surgery, Tonsillectomy Additional Past Surgical History / Comment(s): "WHIPPLE PROCEDURE FOR DUODENAL CANCER." SANDRA BUNIONECTOMY. COLONOSCOPY Past Anesthesia/Blood Transfusion Reactions: No Reported Reaction Past Psychological History: No Psychological Hx Reported Past Alcohol Use History: Occasional Past Drug Use History: None Reported - Past Family History Brother(s) Family Medical History: Cancer Additional Family Medical History / Comment(s): X2 BROTHERS - 1 LUNG, 1 COLON Sister(s) Family Medical History: Cancer Additional Family Medical History / Comment(s): lung cancer General Exam - General Exam Comments Initial Comments: General: Appears in no acute distress. HEAD: Normal with no signs of head trauma. EYES: PERRLA, EOMI, conjunctiva normal, no discharge. Pupils are 2 mm and equal bilaterally. ENT: Hearing grossly intact, normal oropharynx. RESPIRATORY: Clear breath sounds bilaterally. No wheezes, rales, or rhonchi. C/V: Regular rate and rhythm. S1 and S2 auscultated, no edema, peripheral pulses 2+ and intact throughout ABD: Abd is soft, nontender, nondistended EXT: Normal range of motion of all 4 extremities. No obvious deformities. Patient does have tenderness over the right thigh, right hip. No midline cervical spine tenderness palpation. Midline thoracic and lumbar spine tenderness to palpation. No step-offs or deformities noted. Pelvis stable. SKIN: Patient has a pressure wound located over the right hip as well as bruising over the right thigh. NEURO: Alert and oriented x 3-4. Cranial nerves II-XII intact. No focal sensory or strength deficits. GCS of 15. Limitations: altered mental status Course Vital Signs 07/07/23 07/07/23 07/07/23 15:17 17:46 18:00 Temperature 96.4 F L Pulse Rate 100 89 92 Respiratory 18 16 12 Rate Blood Pressure 143/79 150/75 130/59 O2 Sat by Pulse 99 96 96 Oximetry 07/07/23 07/07/23 20:00 20:36 Temperature 97.8 F Pulse Rate 83 Respiratory 16 Rate Blood Pressure 137/74 O2 Sat by Pulse 97 Oximetry Medical Decision Making - Medical Decision Making Was pt. sent in by a medical professional or institution (, PA, FRONT EDGER, urgent care, hospital, or group home...) When possible be specific @ -No Did you speak to anyone other than the patient for history (EMS, parent, family, police, friend...)? What history was obtained from this source @ -Discussed with the patient's daughter, Davida who lives in [place]. Provided patient's history. Did you review nursing and triage notes (agree or disagree)? Why? @ -I reviewed and agree with nursing and triage notes Were old charts reviewed (outside hosp., previous admission, EMS record, old EKG, old radiological studies, urgent care reports/EKG's, group home records)? Report findings @ -Reviewed old charts. Differential Diagnosis (chest pain, altered mental status, abdominal pain women, abdominal pain men, vaginal bleeding, weakness, fever, dyspnea, syncope, headache, dizziness, GI bleed, back pain, seizure, CVA, palpatations, mental health, musculoskeletal)? @ -Differential Weakness: Hypoglycemia, shock, sepsis, hyponatremia, anemia, infection, SD, ETOH, adverse medicine reaction, overdose, stroke, this is not meant to be an all-inclusive list. EKG interpreted by me (3pts min.). @ -As above X-rays interpreted by me (1pt min.). @ -X-rays of the patient's right shoulder, chest, femur on the right, hip and pelvis revealed no obvious acute fracture or injury. CT interpreted by me (1pt min.). @ -CT brain, C-spine revealed no obvious acute intracranial process or injury. No obvious cervical spine process or injury. Patient's CT of the thoracic and lumbar spines negative for any obvious traumatic injury. Chest and pelvis CT revealed no obvious acute injuries or findings secondary to trauma. Patient does have some dilation of the intrahepatic ducts which could be chronic for the patient. She has no abdominal symptoms at this time. She does have a history of a Whipple procedure. Patient also has a benign mass in the liver. U/S interpreted by me (1pt. min.). @ -None done What testing was considered but not performed or refused? (CT, X-rays, U/S, labs)? Why? @ -None What meds were considered but not given or refused? Why? @ -None Did you discuss the management of the patient with other professionals (professionals i.e. , PA, FRONT EDGER, lab, RT, psych nurse, social media analyst, cone treater, teacher, air intelligence officer, outpatient case manager)? Give summary @ -Discussed with admitting physician, Dr. cordoba who accepted the patient. Was smoking cessation discussed for >3mins.? @ -No Was critical care preformed (if so, how long)? @ -Yes, 38 minutes. Were there social determinants of health that impacted care today? How? (Homelessness, low income, unemployed, alcoholism, drug addiction, transportation, low edu. Level, literacy, decrease access to med. care, correction, rehab)? @ -No Was there de-escalation of care discussed even if they declined (Discuss DNR or withdrawal of care, Hospice)? DNR status @ -No What co-morbidities impacted this encounter? (DM, HTN, Smoking, COPD, CAD, Canc er, CVA, ARF, Chemo, Hep., AIDS, mental health diagnosis, sleep apnea, morbid obesity)? @ -None Was patient admitted / discharged? Hospital course, mention meds given and route, prescriptions, significant lab abnormalities, going to OR and other pertinent info. @ -Based on the patient's presentation and physical exam, presents for evaluation following being found down and unable to get up for the last 3-4 days. We will obtain broad workup. Broad imaging as well as the patient is complaining of nonspecific pain on the right side of her body as well as spine. Patient was in agreement this plan. Cervical collar in place. Vital signs within acceptable limits. She was given tetanus booster, IV fluids, IV analgesia medications. Vital signs remarkable for findings concerning for UTI. Nonspecific alk phos elevation. Rhabdomyolysis with elevated creatinine kinase as well as elevated troponin likely secondary to underlying process. Urinalysis concerning for possible UTI. Patient also has a leukocytosis likely secondary to infection as well as her clinical process. Imaging unremarkable for any obvious acute traumatic injury or process. INR is incidentally elevated, we will continue to monitor. I discussed results with the patient as well as her daughter. Mental status is unchanged. She remains alert and oriented 4. Does not recall the exact events of the last 4 days. She was in agreement with admission. We'll continue with IV fluid hydration. I discussed results with Dr. cordoba who accepted the patient onto his service. Discussed possibly involving trauma but as there is no obvious injury he was in agreement that this consult is unnecessary. Patient started on antibiotics for UTI. Undiagnosed new problem with uncertain prognosis? @ -No Drug Therapy requiring intensive monitoring for toxicity (Heparin, Nitro, Insulin, Cardizem)? @ -No Were any procedures done? @ -No Diagnosis/symptom? @ -Fall, rhabdomyolysis, elevated troponin, dehydration, UTI, weakness Acute, or Chronic, or Acute on Chronic? @ -Acute Uncomplicated (without systemic symptoms) or Complicated (systemic symptoms)? @ -Complicated Side effects of treatment? @ -No Exacerbation, Progression, or Severe Exacerbation? @ -No Poses a threat to life or bodily function? How? (Chest pain, USA, SD, pneumonia, PE, COPD, DKA, ARF, appy, cholecystitis, CVA, Diverticulitis, Homicidal, Suicidal, threat to staff... and all critical care pts) @ -Yes - Lab Data Result diagrams: 07/07/23 15:00 07/07/23 21:30 Lab Results 07/07/23 07/07/23 07/07/23 Range/Units 15:00 15:00 15:00 WBC 16.6 H (3.8-10.6) k/uL RBC 5.29 (3.80-5.40) m/uL Hgb 15.3 (11.4-16.0) gm/dL Hct 46.2 H (34.0-46.0) % MCV 87.3 (80.0-100.0) fL MCH 28.9 (25.0-35.0) pg MCHC 33.1 (31.0-37.0) g/dL RDW 15.4 (11.5-15.5) % Plt Count 275 (150-450) k/uL MPV 8.6 Neutrophils % 88 % Lymphocytes % 6 % Monocytes % 4 % Eosinophils % 0 % Basophils % 0 % Neutrophils # 14.6 H (1.3-7.7) k/uL Lymphocytes # 1.0 (1.0-4.8) k/uL Monocytes # 0.7 (0-1.0) k/uL Eosinophils # 0.1 (0-0.7) k/uL Basophils # 0.1 (0-0.2) k/uL PT 42.9 H (10.0-12.5) sec INR 4.4 H (<1.2) APTT 29.5 (22.0-30.0) sec Sodium (137-145) mmol/L Potassium (3.5-5.1) mmol/L Chloride (98-107) mmol/L Carbon Dioxide (22-30) mmol/L Anion Gap mmol/L BUN (7-17) mg/dL Creatinine (0.52-1.04) mg/dL Est GFR (CKD-EPI)AfAm (>60 ml/min/1.73 sqM) Est GFR (CKD-EPI)NonAf (>60 ml/min/1.73 sqM) Glucose (74-99) mg/dL Calcium (8.4-10.2) mg/dL Magnesium (1.6-2.3) mg/dL Total Bilirubin (0.2-1.3) mg/dL AST (14-36) U/L ALT (4-34) U/L Alkaline Phosphatase (38-126) U/L Creatine Kinase (30-135) U/L Troponin I (0.000-0.034) ng/mL Total Protein (6.3-8.2) g/dL Albumin (3.5-5.0) g/dL Urine Color Yellow Urine Appearance Cloudy H (Clear) Urine pH 6.0 (5.0-8.0) Ur Specific [place] 1.023 (1.001-1.035) Urine Protein 1+ H (Negative) Urine Glucose (UA) Negative (Negative) Urine Ketones 2+ H (Negative) Urine Blood Moderate H (Negative) Urine Nitrite Negative (Negative) Urine Bilirubin Negative (Negative) Urine Urobilinogen 2.0 (<2.0) mg/dL Ur Leukocyte Esterase Moderate H (Negative) Urine RBC 7 H (0-5) /hpf Urine WBC 59 H (0-5) /hpf Urine Bacteria Moderate H (None) /hpf Hyaline Casts 4 H (0-2) /lpf Urine Mucus Many H (None) /hpf Urine Opiates Screen Not Detected (NotDetected) Ur Oxycodone Screen Not Detected (NotDetected) Urine Methadone Screen Not Detected (NotDetected) Ur Propoxyphene Screen Not Detected (NotDetected) Ur Barbiturates Screen Not Detected (NotDetected) U Tricyclic Antidepress Not Detected (NotDetected) Ur Phencyclidine Scrn Not Detected (NotDetected) Ur Amphetamines Screen Not Detected (NotDetected) U Methamphetamines Scrn Not Detected (NotDetected) U Benzodiazepines Scrn Not Detected (NotDetected) Urine Cocaine Screen Not Detected (NotDetected) U Marijuana (THC) Screen Not Detected (NotDetected) Serum Alcohol mg/dL Influenza Type A (PCR) (Not Detectd) Influenza Type B (PCR) (Not Detectd) RSV (PCR) (Not Detectd) SARS-CoV-2 (PCR) (Not Detectd) 07/07/23 07/07/23 07/07/23 Range/Units 15:00 15:02 16:41 WBC (3.8-10.6) k/uL RBC (3.80-5.40) m/uL Hgb (11.4-16.0) gm/dL Hct (34.0-46.0) % MCV (80.0-100.0) fL MCH (25.0-35.0) pg MCHC (31.0-37.0) g/dL RDW (11.5-15.5) % Plt Count (150-450) k/uL MPV Neutrophils % % Lymphocytes % % Monocytes % % Eosinophils % % Basophils % % Neutrophils # (1.3-7.7) k/uL Lymphocytes # (1.0-4.8) k/uL Monocytes # (0-1.0) k/uL Eosinophils # (0-0.7) k/uL Basophils # (0-0.2) k/uL PT (10.0-12.5) sec INR (<1.2) APTT (22.0-30.0) sec Sodium 133 L (137-145) mmol/L Potassium 4.8 (3.5-5.1) mmol/L Chloride 95 L (98-107) mmol/L Carbon Dioxide 24 (22-30) mmol/L Anion Gap 14 mmol/L BUN 36 H (7-17) mg/dL Creatinine 0.58 (0.52-1.04) mg/dL Est GFR (CKD-EPI)AfAm >90 (>60 ml/min/1.73 sqM) Est GFR (CKD-EPI)NonAf 85 (>60 ml/min/1.73 sqM) Glucose 156 H (74-99) mg/dL Calcium 9.4 (8.4-10.2) mg/dL Magnesium 2.4 H (1.6-2.3) mg/dL Total Bilirubin 1.6 H (0.2-1.3) mg/dL AST 141 H (14-36) U/L ALT 37 H (4-34) U/L Alkaline Phosphatase 551 H (38-126) U/L Creatine Kinase 1141 H* (30-135) U/L Troponin I 0.063 H* (0.000-0.034) ng/mL Total Protein 7.7 (6.3-8.2) g/dL Albumin 3.6 (3.5-5.0) g/dL Urine Color Urine Appearance (Clear) Urine pH (5.0-8.0) Ur Specific [place] (1.001-1.035) Urine Protein (Negative) Urine Glucose (UA) (Negative) Urine Ketones (Negative) Urine Blood (Negative) Urine Nitrite (Negative) Urine Bilirubin (Negative) Urine Urobilinogen (<2.0) mg/dL Ur Leukocyte Esterase (Negative) Urine RBC (0-5) /hpf Urine WBC (0-5) /hpf Urine Bacteria (None) /hpf Hyaline Casts (0-2) /lpf Urine Mucus (None) /hpf Urine Opiates Screen (NotDetected) Ur Oxycodone Screen (NotDetected) Urine Methadone Screen (NotDetected) Ur Propoxyphene Screen (NotDetected) Ur Barbiturates Screen (NotDetected) U Tricyclic Antidepress (NotDetected) Ur Phencyclidine Scrn (NotDetected) Ur Amphetamines Screen (NotDetected) U Methamphetamines Scrn (NotDetected) U Benzodiazepines Scrn (NotDetected) Urine Cocaine Screen (NotDetected) U Marijuana (THC) Screen (NotDetected) Serum Alcohol <10 mg/dL Influenza Type A (PCR) Not Detected (Not Detectd) Influenza Type B (PCR) Not Detected (Not Detectd) RSV (PCR) Not Detected (Not Detectd) SARS-CoV-2 (PCR) Not Detected (Not Detectd) - EKG Data -: EKG Interpreted by Me EKG Comments: 12-lead Electrocardiogram Interpretation Note EKG was reviewed and interpreted by myself. 12-lead ECG performed at 1739 is interpreted by me as revealing normal sinus rhythm at a rate of 77 beats per minute. [employer] is normal. [place] interval is 132 ms, QRS duration is 93 ms, QTc is 399 ms.. There were no ST or T wave abnormalities to suggest myocardial ischemia or injury. R wave progression across the precordium was satisfactory. By my interpretation this EKG is non-diagnostic for acute ischemia. Critical Care Time Critical Care Time: Yes Total Critical Care Time: 38 Disposition Clinical Impression: Fall, Dehydration, Contusion, Abrasion, Rhabdomyolysis, UTI (urinary tract infection) Disposition: ADMITTED IP TO THIS HOSP Condition: Serious Is patient prescribed a controlled substance at d/c from ED?: No Time of Disposition: 19:32
[2023-07-07 21:57] LABS: ALT 30 U/L (4-34); AST 117 U/L (14-36); African American GFR (CKD) >90 (>60 ml/min/1.73 sqM); Albumin 2.7 g/dL (3.5-5.0); Alkaline Phosphatase 446 U/L (38-126); Anion Gap 13 mmol/L; Blood Urea Nitrogen 33 mg/dL (7-17); Calcium 8.2 mg/dL (8.4-10.2); Carbon Dioxide 21 mmol/L (22-30); Chloride 100 mmol/L (98-107); Glucose 134 mg/dL (74-99); Non-African American GFR(CKD) 86 (>60 ml/min/1.73 sqM); Sodium 134 mmol/L (137-145); Total Bilirubin 1.3 mg/dL (0.2-1.3); Total Protein 6.1 g/dL (6.3-8.2)
[2023-07-07 22:08] LABS: Potassium 3.7 mmol/L (3.5-5.1)
--- NOTE | 2023-07-07 23:00 | P.HPIM ---
History of Present Illness This is a pleasant 87 years old female with past medical history of Osteoarthritis ,DUODENAL CANCER 1998. C s/p "WHIPPLE PROCEDURE FOR DUODENAL CANCER." Present because patient was found on the floor and able to get up for 5 days. Patient kind of poor historian on admission. And information was obtained from staff and medical record Patient has diffuse but the pain. Generally weak and tired looking. Follow commands and talks in soft tone. Vitas looks stable and patient is afebrile Labs reviewed, patient has leukocytosis of 16.6, INR is elevated at 4.4, rest of CBC is unremarkable BMP and liver enzymes are reviewed, patient has evidence of mild transaminitis which is improving on repeat test. Creatinine kinase is elevated at 114-1. Troponin mildly elevated at 0.06 and 0.04. Computed tomography scan of the thoracolumbar spine showing no fracture but spondylotic changes CT of the head and neck and cervical spine showing no fracture as well Chest x-ray: No acute process CT of the chest, abdomen and pelvis with IV contrast showing liver mass with intrahepatic duct dilatation. Intrapancreatic duct dilatation and the pancreatic head is not visualized, please refer to the report for more details. Patient received IV fluid and Rocephin and admitted to the general medical floor Review of Systems Review of systems CONSTITUTIONAL: No fever, no malaise, no fatigue. HEENT: No recent visual problems or hearing problems. Denied any sore throat. CARDIOVASCULAR: No orthopnea, PND, no palpitations, no syncope. PULMONARY: No shortness of breath, no cough, no hemoptysis. GASTROINTESTINAL: No diarrhea, no nausea, no vomiting, no abdominal pain. Normoactive bowel sounds. NEUROLOGICAL: No headaches, no weakness, no numbness. HEMATOLOGICAL: Denies any bleeding or petechiae. GENITOURINARY: Denies any burning micturition, frequency, or urgency. MUSCULOSKELETAL/RHEUMATOLOGICAL: Denies any joint pain, swelling, or any muscle pain. ENDOCRINE: Denies any polyuria or polydipsia. Past Medical History Past Medical History: Cancer, Eye Disorder, Osteoarthritis (OA) Additional Past Medical History / Comment(s): DUODENAL CANCER 1998. CATARACTS. OSTEOPOROSIS. ON PO AB FOR UTI. History of Any Multi-Drug Resistant Organisms: None Reported Past Surgical History: Appendectomy, Cholecystectomy, Orthopedic Surgery, Tonsillectomy Additional Past Surgical History / Comment(s): "WHIPPLE PROCEDURE FOR DUODENAL CANCER." SANDRA BUNIONECTOMY. COLONOSCOPY Past Anesthesia/Blood Transfusion Reactions: No Reported Reaction Past Psychological History: No Psychological Hx Reported Past Alcohol Use History: Occasional Past Drug Use History: None Reported - Past Family History Brother(s) Family Medical History: Cancer Additional Family Medical History / Comment(s): X2 BROTHERS - 1 LUNG, 1 COLON Sister(s) Family Medical History: Cancer Additional Family Medical History / Comment(s): lung cancer Medications and Allergies Home Medications Medication Instructions Recorded Confirmed Type Biotin 5 mg PO DAILY 11/06/18 07/07/23 History Multivitamins, Thera [Multivitamin 1 tab PO DAILY 11/06/18 07/07/23 History (formulary)] Calcium Carbonate/Vitamin D3 1 tab PO DAILY 07/07/23 07/07/23 History [Caltrate 600 Plus D3 20 Mcg (800 Iu)] Cholecalciferol [Vitamin D3 (25 150 mcg PO DAILY 07/07/23 07/07/23 History Mcg = 1000 Iu)] Lutein 20 mg PO DAILY 07/07/23 07/07/23 History Vitamin C Er 500mg 500 mg PO DAILY 07/07/23 07/07/23 History Allergies Allergy/AdvReac Type Severity Reaction Status Date / Time bee pollen Allergy Unknown Verified 07/07/23 17:22 Influenza Virus Vaccines AdvReac Chills, Verified 07/07/23 17:22 flu-like symptoms prednisone AdvReac Nausea & Verified 07/07/23 17:22 Vomiting tramadol AdvReac Hallucinati Verified 07/07/23 17:22 ons Physical Exam Vitals: Vital Signs Temp Pulse Resp BP Pulse Ox 07/07/23 20:36 97.8 F 07/07/23 20:00 83 16 137/74 97 07/07/23 18:00 92 12 130/59 96 07/07/23 17:46 89 16 150/75 96 07/07/23 15:17 96.4 F L 100 18 143/79 99 Intake and Output 07/07/23 07/07/23 07/07/23 06:59 14:59 22:59 Other: Weight 43.772 kg --GENERAL: The patient is awake, confused, follows commands, not in any acute distress. malnourished and cachectic HEENT: Pupils are round and equally reacting to light. EOMI. No scleral icterus. No conjunctival pallor. Normocephalic, atraumatic. No pharyngeal erythema. No thyromegaly. CARDIOVASCULAR: S1 and S2 present. No murmurs, rubs, or gallops. PULMONARY: Chest is clear to auscultation, no wheezing , no crackles. ABDOMEN: Soft, nontender, nondistended, normoactive bowel sounds. No palpable organomegaly. MUSCULOSKELETAL: No joint swelling or deformity. EXTREMITIES: No cyanosis, clubbing, or pedal edema. NEUROLOGICAL: Gross neurological examination did not reveal any focal deficits. -SKIN: No rashes. no petechiae. Bruise on the right side with skin sores. Right leg rest area Results CBC & Chem 7: 07/07/23 15:00 07/07/23 21:30 Labs: Abnormal Lab Results - Last 24 Hours (Table) 07/07/23 07/07/23 07/07/23 Range/Units 15:00 15:00 15:00 WBC 16.6 H (3.8-10.6) k/uL Hct 46.2 H (34.0-46.0) % Neutrophils # 14.6 H (1.3-7.7) k/uL PT 42.9 H (10.0-12.5) sec INR 4.4 H (<1.2) Sodium (137-145) mmol/L Chloride (98-107) mmol/L BUN (7-17) mg/dL Glucose (74-99) mg/dL Magnesium (1.6-2.3) mg/dL Total Bilirubin (0.2-1.3) mg/dL AST (14-36) U/L ALT (4-34) U/L Alkaline Phosphatase (38-126) U/L Creatine Kinase (30-135) U/L Troponin I (0.000-0.034) ng/mL Urine Appearance Cloudy H (Clear) Urine Protein 1+ H (Negative) Urine Ketones 2+ H (Negative) Urine Blood Moderate H (Negative) Ur Leukocyte Esterase Moderate H (Negative) Urine RBC 7 H (0-5) /hpf Urine WBC 59 H (0-5) /hpf Urine Bacteria Moderate H (None) /hpf Hyaline Casts 4 H (0-2) /lpf Urine Mucus Many H (None) /hpf 11/17/23 11/17/23 Range/Units 15:00 16:41 WBC (3.8-10.6) k/uL Hct (34.0-46.0) % Neutrophils # (1.3-7.7) k/uL PT (10.0-12.5) sec INR (<1.2) Sodium 133 L (137-145) mmol/L Chloride 95 L (98-107) mmol/L BUN 36 H (7-17) mg/dL Glucose 156 H (74-99) mg/dL Magnesium 2.4 H (1.6-2.3) mg/dL Total Bilirubin 1.6 H (0.2-1.3) mg/dL AST 141 H (14-36) U/L ALT 37 H (4-34) U/L Alkaline Phosphatase 551 H (38-126) U/L Creatine Kinase 1141 H* (30-135) U/L Troponin I 0.063 H* (0.000-0.034) ng/mL Urine Appearance (Clear) Urine Protein (Negative) Urine Ketones (Negative) Urine Blood (Negative) Ur Leukocyte Esterase (Negative) Urine RBC (0-5) /hpf Urine WBC (0-5) /hpf Urine Bacteria (None) /hpf Hyaline Casts (0-2) /lpf Urine Mucus (None) /hpf Assessment and Plan Assessment: Metabolic encephalopathy Liver mass suspicious for malignancy, metastatic versus primary Acute urinary tract infection. Rhabdomyolysis Pressure ulcers with bruising to right lateral thigh with pressure skin sores to right hip right iliac crest Malnourished with severe calorie protein malnutrition Coagulopathy secondary to malnutrition Hypoalbuminemia Dehydration Plan: Continue with normal saline 75 mL/h Continue with ceftriaxone upon urine culture later scan Dietary consult Oncology team consult for the liver mass Labs and medication were reviewed.. Continue same treatment. Continue with symptomatic treatment. Resume home medication. Monitor labs and vitals. DVT and GI prophylaxis. Further recommendations as per clinical course of the patient DVT prophylaxis: Coagulopathic GI Prophylaxis: Pepcid PT/OT: Pending Prognosis is guarded
[2023-07-08] MEDS: SODIUM CHLORIDE 0.9% 1,000 ML IV SCH ×3 (03:35→23:39)
[2023-07-08] MEDS: FAMOTIDINE 20 MG/2 ML VIAL IV SCH (08:12)
[2023-07-08 11:22] VITALS: BMI 17.1
[2023-07-08 11:53] LABS: ALT 34 U/L (4-34); AST 122 U/L (14-36); African American GFR (CKD) >90 (>60 ml/min/1.73 sqM); Albumin 2.7 g/dL (3.5-5.0); Alkaline Phosphatase 463 U/L (38-126); Anion Gap 9 mmol/L; Bilirubin, Delta 0.8 mg/dL (0.0-0.2); Bilirubin,Unconjugated 0.3 mg/dL (0.0-1.1); Blood Urea Nitrogen 32 mg/dL (7-17); Calcium 8.6 mg/dL (8.4-10.2); Carbon Dioxide 27 mmol/L (22-30); Chloride 102 mmol/L (98-107); Creatine Kinase 477 U/L (30-135); Glucose 190 mg/dL (74-99); Non-African American GFR(CKD) 81 (>60 ml/min/1.73 sqM); Potassium 3.3 mmol/L (3.5-5.1); Sodium 138 mmol/L (137-145); Total Bilirubin 1.1 mg/dL (0.2-1.3); Total Protein 5.9 g/dL (6.3-8.2)
[2023-07-08 11:54] LABS: Basophils % (A) 0 %; Eosinophils % (A) 0 %; HCT 40.8 % (34.0-46.0); HGB 13.3 gm/dL (11.4-16.0); Lymphocytes # (A) 0.9 k/uL (1.0-4.8); Lymphocytes % (A) 4 %; MCH 29.2 pg (25.0-35.0); MCHC 32.5 g/dL (31.0-37.0); MCV 89.9 fL (80.0-100.0); Mean Platelet Volume 8.8; Monocytes # (A) 0.7 k/uL (0-1.0); Monocytes % (A) 3 %; Neutrophils # (A) 22.2 k/uL (1.3-7.7); Neutrophils % (A) 93 %; Platelet Count 234 k/uL (150-450); RBC 4.54 m/uL (3.80-5.40); RDW 15.5 % (11.5-15.5)
[2023-07-08] MEDS ORDERED: ASPIRIN 81 MG PO STA (12:01)
[2023-07-08] MEDS ORDERED: Magnesium Replacement Protocol 1 EACH MISC MISCELLANE PRN (12:03)
[2023-07-08] MEDS ORDERED: Potassium Replacement Protocol 1 EACH MISC MISCELLANE PRN (12:03)
[2023-07-08] MEDS: ASPIRIN 81 MG PO SCH (12:48)
--- NOTE | 2023-07-08 12:48 | CA ---
Transthoracic Echo Report Name: Lo Nash Age: 87 Gender: F : 1935 Exam Date: 07/08/2023 11:50 Exam Location: [place] [facility] Ht (in): 63 Wt (lb): 96 Ordering Physician: Rafal Chen MD Attending/Referring Phys: [id number], Gustavo [employer] Helper Анна Kowalski [facility] Procedure CPT: Indications: Rule out heart disease Cardiac Hx: Technical Quality: Fair Contrast 1: Total Dose (mL): Contrast 2: Total Dose (mL): MEASUREMENTS (Male / Female) Normal Values 2D ECHO LV Diastolic Diameter PLAX 3.9 cm 4.2 - 5.9 / 3.9 - 5.3 cm LV Systolic Diameter PLAX 2.8 cm IVS Diastolic Thickness 1.0 cm 0.6 - 1.0 / 0.6 - 0.9 cm LVPW Diastolic Thickness 0.8 cm 0.6 - 1.0 / 0.6 - 0.9 cm LV Relative Wall Thickness 0.5 LVOT Diameter 2.0 cm Ascending Aorta Diameter 2.7 cm M-MODE Aortic Root Diameter MM 2.2 cm LA Systolic Diameter MM 2.8 cm LA Ao Ratio MM 1.3 AV Cusp Separation MM 1.8 cm DOPPLER AV Peak Velocity 93.0 cm/s AV Peak Gradient 3.5 mmHg AV Mean Velocity 68.2 cm/s AV Mean Gradient 2.1 mmHg AV Velocity Time Integral 15.4 cm LVOT Peak Velocity 79.6 cm/s LVOT Peak Gradient 2.5 mmHg LVOT Velocity Time Integral 14.5 cm LVOT Stroke Volume 47.4 cm??? LVOT Stroke Volume Index 33.5 ml/m??? LVOT Cardiac Index 3088.7 cm???/min???m??? AV Area Cont Eq vti 3.1 cm??? AV Area Cont Eq pk 2.8 cm??? Mitral E Point Velocity 45.4 cm/s Mitral A Point Velocity 70.7 cm/s Mitral E to A Ratio 0.6 MV Deceleration Time 180.3 ms LV E' Lateral Velocity 6.1 cm/s Mitral E to LV E' Lateral Ratio 7.4 LV E' Septal Velocity 5.2 cm/s Mitral E to LV E' Septal Ratio 8.8 TR Peak Velocity 260.8 cm/s TR Peak Gradient 27.2 mmHg Right Atrial Pressure 3.0 mmHg Pulmonary Artery Systolic Pressu 30.2 mmHg Right Ventricular Systolic Press 30.2 mmHg FINDINGS Left Ventricle Mildly increased septal wall thickness. Left ventricular cavity size normal. Normal left ventricular systolic function with no obvious regional wall motion abnormalities. Left ventricular ejection fraction is estimated at 55-60%. Right Ventricle Normal right ventricular size. Mild pulmonary hypertension. Right Atrium Normal right atrial size. Left Atrium Normal left atrial size. Mitral Valve Mitral valve thickened. Mitral annular calcification. Mild mitral regurgitation. Aortic Valve Trileaflet aortic valve. Diffuse thickening of the aortic valve cusps with reduced excursion. No aortic regurgitation. Tricuspid Valve Structurally normal tricuspid valve. Mild tricuspid regurgitation. Pulmonic Valve Pulmonic valve not well visualized. Pericardium Moderate pericardial effusion. Aorta Normal size aortic root and proximal ascending aorta. CONCLUSIONS Preserved LV size and systolic function Moderate pericardial effusion, exudative This appears old. Fibrinous material overlying the surface of the myocardium No evidence for tamponade Previewed by: Dr. Mg Fermin MD (Electronically Signed) Final Date: 08 July 2023 12:47
[2023-07-08] MEDS: POTASSIUM CHLORIDE 10 MEQ in WATER FOR INJECTION 1 100ML.BAG IVPB SCH ×4 (13:23→18:29)
--- NOTE | 2023-07-08 18:31 | P.PN ---
Subjective This is a pleasant 87 years old female with past medical history of Osteoarthritis ,DUODENAL CANCER 1998. C s/p "WHIPPLE PROCEDURE FOR DUODENAL CAN CER." Present because patient was found on the floor and able to get up for 5 days. Patient kind of poor historian on admission. And information was obtained from staff and medical record Patient has diffuse but the pain. Generally weak and tired looking. Follow commands and talks in soft tone. Vitas looks stable and patient is afebrile Labs reviewed, patient has leukocytosis of 16.6, INR is elevated at 4.4, rest of CBC is unremarkable BMP and liver enzymes are reviewed, patient has evidence of mild transaminitis which is improving on repeat test. Creatinine kinase is elevated at 114-1. Troponin mildly elevated at 0.06 and 0.04. Computed tomography scan of the thoracolumbar spine showing no fracture but spondylotic changes CT of the head and neck and cervical spine showing no fracture as well Chest x-ray: No acute process CT of the chest, abdomen and pelvis with IV contrast showing liver mass with intrahepatic duct dilatation. Intrapancreatic duct dilatation and the pancreatic head is not visualized, please refer to the report for more details. Patient received IV fluid and Rocephin and admitted to the general medical floor 07/08/2023 Patient today is awake alert, partially oriented to time place as she knows she is in hospital but not City name or name of the hospital, she could tell the year but not the month. She is oriented to person. She denies any urinary symptoms. No suprapubic tenderness or flank pain. No right upper quadrant pain where she has liver mass. No nausea vomiting and she eats well However she is complaining of from left lateral chest pain below the armpit. 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 Her vitals are stable though and her blood pressure is actually 170/80. She is saturating well on room air. Labs look stable. Leukocytosis worsened 16.6 up to 24 gait. CRP is mildly elevated at 8.8. Blood culture and pfrolcalcitonin are requested. Patient remains on normal saline 75 ml Per hour and ceftriaxone. Patient was given aspirin 160 mg today and continued it 1 mg patient made aware she has a liver mass and she verbalized understanding and acceptance Neurology service been consulted as well as cardiology. As per patient and daughter wishes patient's request to be DO NOT RESUSCITATE Active Medications Generic Name Dose Route Start Last Admin Trade Name Freq PRN Reason Stop Dose Admin Acetaminophen 650 mg 07/07/23 19:58 Acetaminophen Tab 325 Mg Tab PO Q6HR PRN Mild Pain or Fever > 100.5 Aspirin 81 mg 07/08/23 12:15 07/08/23 12:48 Aspirin 81 Mg PO Not Given DAILY MARILIA Famotidine 20 mg 07/08/23 09:00 07/08/23 08:12 Famotidine 20 Mg/2 Ml Vial IV 20 mg DAILY MARILIA Administration Ceftriaxone Sodium 1 gm/ 50 mls @ 100 mls/hr 07/08/23 09:00 07/08/23 08:12 Sodium Chloride IVPB 100 mls/hr Q24HR MARILIA Administration Protocol Sodium Chloride 1,000 mls @ 75 mls/hr 07/07/23 23:00 07/08/23 17:26 Saline 0.9% IV Not Given .[id number] MARILIA Miscellaneous Information 1 each 07/08/23 12:03 Potassium Replacement Protocol 1 Each Misc MISCELLANE DAILY PRN Per Protocol Protocol Miscellaneous Information 1 each 07/08/23 12:03 Magnesium Replacement Protocol 1 Each Misc MISCELLANE DAILY PRN Per Protocol Protocol Naloxone HCl 0.2 mg 07/07/23 19:58 Naloxone 0.4 Mg/Ml 1 Ml Vial IV Q2M PRN Opioid Reversal Objective - Vital Signs Vital signs: Vital Signs Temp 98.6 F 07/08/23 08:00 Pulse 82 07/08/23 08:07 Resp 18 07/08/23 08:07 BP 176/88 07/08/23 08:00 Pulse Ox 98 07/08/23 08:00 FiO2 Intake & Output 07/07/23 07/08/23 07/08/23 18:59 06:59 18:59 Weight 43.772 kg 43.772 kg 43.772 kg Other: Voiding Method External Catheter External Catheter # Voids 2 - Exam --GENERAL: The patient is awake, confused, follows commands, not in any acute distress. malnourished and cachectic HEENT: Pupils are round and equally reacting to light. EOMI. No scleral icterus. No conjunctival pallor. Normocephalic, atraumatic. No pharyngeal erythema. No thyromegaly. CARDIOVASCULAR: S1 and S2 present. No murmurs, rubs, or gallops. PULMONARY: Chest is clear to auscultation, no wheezing , no crackles. ABDOMEN: Soft, nontender, nondistended, normoactive bowel sounds. No palpable or ganomegaly. MUSCULOSKELETAL: No joint swelling or deformity. EXTREMITIES: No cyanosis, clubbing, or pedal edema. -NEUROLOGICAL: Cranial nerves are grossly intact. Upper extremity weakness was somewhat weakened and draped although she can't raise her arm above her head but slower than the right side , the exam is 5/5 and sensation is intact. -SKIN: No rashes. no petechiae. Bruise on the right side with skin sores. Right leg rest area - Labs CBC & Chem 7: 07/08/23 11:07/08/23 11: Labs: Abnormal Lab Results - Last 24 Hours (Table) 07/07/23 07/07/23 07/07/23 Range/Units 15:00 15:00 15:00 WBC 16.6 H (3.8-10.6) k/uL Hct 46.2 H (34.0-46.0) % Neutrophils # 14.6 H (1.3-7.7) k/uL PT 42.9 H (10.0-12.5) sec INR 4.4 H (<1.2) Sodium (137-145) mmol/L Chloride (98-107) mmol/L Carbon Dioxide (22-30) mmol/L BUN (7-17) mg/dL Glucose (74-99) mg/dL Calcium (8.4-10.2) mg/dL Magnesium (1.6-2.3) mg/dL Total Bilirubin (0.2-1.3) mg/dL AST (14-36) U/L ALT (4-34) U/L Alkaline Phosphatase (38-126) U/L Creatine Kinase (30-135) U/L Troponin I (0.000-0.034) ng/mL Total Protein (6.3-8.2) g/dL Albumin (3.5-5.0) g/dL Urine Appearance Cloudy H (Clear) Urine Protein 1+ H (Negative) Urine Ketones 2+ H (Negative) Urine Blood Moderate H (Negative) Ur Leukocyte Esterase Moderate H (Negative) Urine RBC 7 H (0-5) /hpf Urine WBC 59 H (0-5) /hpf Urine Bacteria Moderate H (None) /hpf Hyaline Casts 4 H (0-2) /lpf Urine Mucus Many H (None) /hpf 07/07/23 07/07/23 07/07/23 Range/Units 15:00 16:41 20:17 WBC (3.8-10.6) k/uL Hct (34.0-46.0) % Neutrophils # (1.3-7.7) k/uL PT (10.0-12.5) sec INR (<1.2) Sodium 133 L (137-145) mmol/L Chloride 95 L (98-107) mmol/L Carbon Dioxide (22-30) mmol/L BUN 36 H (7-17) mg/dL Glucose 156 H (74-99) mg/dL Calcium (8.4-10.2) mg/dL Magnesium 2.4 H (1.6-2.3) mg/dL Total Bilirubin 1.6 H (0.2-1.3) mg/dL AST 141 H (14-36) U/L ALT 37 H (4-34) U/L Alkaline Phosphatase 551 H (38-126) U/L Creatine Kinase 1141 H* (30-135) U/L Troponin I 0.063 H* 0.043 H* (0.000-0.034) ng/mL Total Protein (6.3-8.2) g/dL Albumin (3.5-5.0) g/dL Urine Appearance (Clear) Urine Protein (Negative) Urine Ketones (Negative) Urine Blood (Negative) Ur Leukocyte Esterase (Negative) Urine RBC (0-5) /hpf Urine WBC (0-5) /hpf Urine Bacteria (None) /hpf Hyaline Casts (0-2) /lpf Urine Mucus (None) /hpf 07/07/23 07/08/23 Range/Units 21:30 00:25 WBC (3.8-10.6) k/uL Hct (34.0-46.0) % Neutrophils # (1.3-7.7) k/uL PT (10.0-12.5) sec INR (<1.2) Sodium 134 L (137-145) mmol/L Chloride (98-107) mmol/L Carbon Dioxide 21 L (22-30) mmol/L BUN 33 H (7-17) mg/dL Glucose 134 H (74-99) mg/dL Calcium 8.2 L (8.4-10.2) mg/dL Magnesium (1.6-2.3) mg/dL Total Bilirubin (0.2-1.3) mg/dL AST 117 H (14-36) U/L ALT (4-34) U/L Alkaline Phosphatase 446 H (38-126) U/L Creatine Kinase (30-135) U/L Troponin I 0.060 H* (0.000-0.034) ng/mL Total Protein 6.1 L (6.3-8.2) g/dL Albumin 2.7 L (3.5-5.0) g/dL Urine Appearance (Clear) Urine Protein (Negative) Urine Ketones (Negative) Urine Blood (Negative) Ur Leukocyte Esterase (Negative) Urine RBC (0-5) /hpf Urine WBC (0-5) /hpf Urine Bacteria (None) /hpf Hyaline Casts (0-2) /lpf Urine Mucus (None) /hpf Assessment and Plan Assessment: Left upper extremity weakness suspicious for stroke versus other 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 Patient only mildly confused today Liver mass suspicious for malignancy, metastatic versus primary Acute urinary tract infection, vs suspected asymptomatic bacteriuria Rhabdomyolysis, Improving Pressure ulcers with bruising to right lateral thigh with pressure skin sores to right hip right iliac crest Malnourished with severe calorie protein malnutrition Coagulopathy secondary to malnutrition Hypoalbuminemia Dehydration leukocytosis Plan: Continue with normal saline 75 mL/h Continue with ceftriaxone upon urine culture later scan Dietary consult Oncology team consult for the liver mass Consult cardiology for pericardial disease and exudative pericarditis while neurology for her upper extremity weakness on the left side Labs and medication were reviewed.. Continue same treatment. Continue with symptomatic treatment. Resume home medication. Monitor labs and vitals. DVT and GI prophylaxis. Further recommendations as per clinical course of the patient DVT prophylaxis: Coagulopathic GI Prophylaxis: Pepcid PT/OT: Pending Prognosis is guarded
--- NOTE | 2023-07-08 19:07 | P.CONS ---
History of Present Illness - Reason for Consult Consult date: 07/08/23 liver mass Requesting physician: Rafal E Sheet - Chief Complaint fall, confusion, weakness - History of Present Illness Patient is an 87-year-old female with a significant history of duodenal cancer. Consult was placed due to liver mass noted on CT scan. Patient presented to the emergency room after sustaining a fall and was found on the ground of her home. It is thought that she was on the ground for approximately 3 to 4 days. HPI is somewhat limited due to patient's confusion. However I was full able to speak to patient's daughter who is familiar with patient's history. Patient was diagnosed with duodenal cancer 1998 and was treated in the [facility] unknown which oncologist/hospital system. She received chemo and RT and underwent Whipple procedure. Daughter states patient prior to this visit has been otherwise rather healthy considering her age and lives independently. Upon admission UA revealed UTI and patient was started on Rocephin. Urine and blood cultures pending. LFTs and bilirubin elevated. CBC revealed leukocytosis with WBC 16.6, hemoglobin 15.3, platelets 275,000. Creatinine 0.54. CK elevated at 1,141. Serial troponins elevated. Cardiology following. Patient was also noted to have left-sided weakness and neurology has been consulted. CT brain and C- spine revealed no acute intracranial abnormalities and no evidence of cervical spine fractures. CT chest abdomen pelvis showed no acute traumatic injury to chest abdomen or pelvis. Small left pleural effusion. Large heterogeneous mass in the left hepatic lobe measuring approximately 8.4 cm x 5.8 cm x 6.4 cm with ill-defined margins, and cystic dilatation of the pancreatic duct in the body and tail. Review of Systems 10 point ROS is negative except as stated in the HPI Past Medical History Past Medical History: Cancer, Eye Disorder, Osteoarthritis (OA) Additional Past Medical History / Comment(s): DUODENAL CANCER 1998. CATARACTS. OSTEOPOROSIS. ON PO AB FOR UTI. History of Any Multi-Drug Resistant Organisms: None Reported Past Surgical History: Appendectomy, Cholecystectomy, Orthopedic Surgery, Tonsillectomy Additional Past Surgical History / Comment(s): "WHIPPLE PROCEDURE FOR DUODENAL CANCER." SANDRA BUNIONECTOMY. COLONOSCOPY Past Anesthesia/Blood Transfusion Reactions: No Reported Reaction Past Psychological History: No Psychological Hx Reported Smoking Status: Former smoker Past Alcohol Use History: Occasional Additional Past Alcohol Use History / Comment(s): SMOKED AGE 15 ON/OFF, LIGHT, QUIT 1963 Past Drug Use History: None Reported - Past Family History Brother(s) Family Medical History: Cancer Additional Family Medical History / Comment(s): X2 BROTHERS - 1 LUNG, 1 COLON Sister(s) Family Medical History: Cancer Additional Family Medical History / Comment(s): lung cancer Medications and Allergies Home Medications Medication Instructions Recorded Confirmed Type Biotin 5 mg PO DAILY 11/06/18 07/07/23 History Multivitamins, Thera [Multivitamin 1 tab PO DAILY 11/06/18 07/07/23 History (formulary)] Calcium Carbonate/Vitamin D3 1 tab PO DAILY 07/07/23 07/07/23 History [Caltrate 600 Plus D3 20 Mcg (800 Iu)] Cholecalciferol [Vitamin D3 (25 150 mcg PO DAILY 07/07/23 07/07/23 History Mcg = 1000 Iu)] Lutein 20 mg PO DAILY 07/07/23 07/07/23 History Vitamin C Er 500mg 500 mg PO DAILY 07/07/23 07/07/23 History Allergies Allergy/AdvReac Type Severity Reaction Status Date / Time bee pollen Allergy Unknown Verified 07/07/23 17:22 Influenza Virus Vaccines AdvReac Chills, Verified 07/07/23 17:22 flu-like symptoms prednisone AdvReac Nausea & Verified 07/07/23 17:22 Vomiting tramadol AdvReac Hallucinati Verified 07/07/23 17:22 ons Physical Exam Vitals: Vital Signs Temp Pulse Pulse Resp BP BP Pulse Ox 07/08/23 11:22 98.4 F 78 18 158/72 99 07/08/23 08:07 82 18 07/08/23 08:00 98.6 F 82 18 176/88 98 07/08/23 03:33 65 18 161/77 98 07/07/23 23:50 97.9 F 100 18 133/79 100 07/07/23 23:14 94 18 123/64 99 07/07/23 20:36 97.8 F 07/07/23 20:00 83 16 137/74 97 07/07/23 18:00 92 12 130/59 96 07/07/23 17:46 89 16 150/75 96 07/07/23 15:17 96.4 F L 100 18 143/79 99 Intake and Output 07/07/23 07/08/23 07/08/23 22:59 06:59 14:59 Intake Total 118 Balance 118 Intake: Oral 118 Other: Voiding Method External Catheter External Catheter # Voids 2 # Bowel Movements 1 Weight 43.772 kg 43.772 kg 43.772 kg - Constitutional General appearance: average body habitus, no acute distress - EENT ENT: hearing grossly normal - Respiratory Respiratory: bilateral: CTA - Cardiovascular Rhythm: regular Heart sounds: normal: S1, S2 - Gastrointestinal General gastrointestinal: no distended, no hepatomegaly, soft, no tenderness - Integumentary Integumentary: no cyanotic - Neurologic confused, alert to person. Generalized weakness - Musculoskeletal Musculoskeletal: generalized weakness Results CBC & Chem 7: 07/08/23 11:17 07/08/23 11:17 Labs: Abnormal Lab Results - Last 24 Hours (Table) 07/07/23 07/07/23 07/07/23 Range/Units 15:00 15:00 15:00 WBC 16.6 H (3.8-10.6) k/uL Hct 46.2 H (34.0-46.0) % Neutrophils # 14.6 H (1.3-7.7) k/uL Lymphocytes # (1.0-4.8) k/uL PT 42.9 H (10.0-12.5) sec INR 4.4 H (<1.2) Sodium (137-145) mmol/L Potassium (3.5-5.1) mmol/L Chloride (98-107) mmol/L Carbon Dioxide (22-30) mmol/L BUN (7-17) mg/dL Glucose (74-99) mg/dL Calcium (8.4-10.2) mg/dL Magnesium (1.6-2.3) mg/dL Total Bilirubin (0.2-1.3) mg/dL Delta Bilirubin (0.0-0.2) mg/dL AST (14-36) U/L ALT (4-34) U/L Alkaline Phosphatase (38-126) U/L Creatine Kinase (30-135) U/L Troponin I (0.000-0.034) ng/mL C-Reactive Protein (<1.0) mg/dL Total Protein (6.3-8.2) g/dL Albumin (3.5-5.0) g/dL Urine Appearance Cloudy H (Clear) Urine Protein 1+ H (Negative) Urine Ketones 2+ H (Negative) Urine Blood Moderate H (Negative) Ur Leukocyte Esterase Moderate H (Negative) Urine RBC 7 H (0-5) /hpf Urine WBC 59 H (0-5) /hpf Urine Bacteria Moderate H (None) /hpf Hyaline Casts 4 H (0-2) /lpf Urine Mucus Many H (None) /hpf 07/07/23 07/07/23 07/07/23 Range/Units 15:00 16:41 20:17 WBC (3.8-10.6) k/uL Hct (34.0-46.0) % Neutrophils # (1.3-7.7) k/uL Lymphocytes # (1.0-4.8) k/uL PT (10.0-12.5) sec INR (<1.2) Sodium 133 L (137-145) mmol/L Potassium (3.5-5.1) mmol/L Chloride 95 L (98-107) mmol/L Carbon Dioxide (22-30) mmol/L BUN 36 H (7-17) mg/dL Glucose 156 H (74-99) mg/dL Calcium (8.4-10.2) mg/dL Magnesium 2.4 H (1.6-2.3) mg/dL Total Bilirubin 1.6 H (0.2-1.3) mg/dL Delta Bilirubin (0.0-0.2) mg/dL AST 141 H (14-36) U/L ALT 37 H (4-34) U/L Alkaline Phosphatase 551 H (38-126) U/L Creatine Kinase 1141 H* (30-135) U/L Troponin I 0.063 H* 0.043 H* (0.000-0.034) ng/mL C-Reactive Protein (<1.0) mg/dL Total Protein (6.3-8.2) g/dL Albumin (3.5-5.0) g/dL Urine Appearance (Clear) Urine Protein (Negative) Urine Ketones (Negative) Urine Blood (Negative) Ur Leukocyte Esterase (Negative) Urine RBC (0-5) /hpf Urine WBC (0-5) /hpf Urine Bacteria (None) /hpf Hyaline Casts (0-2) /lpf Urine Mucus (None) /hpf 07/07/23 07/08/23 07/08/23 Range/Units 21:30 00:25 11:17 WBC 24.0 H (3.8-10.6) k/uL Hct (34.0-46.0) % Neutrophils # 22.2 H (1.3-7.7) k/uL Lymphocytes # 0.9 L (1.0-4.8) k/uL PT (10.0-12.5) sec INR (<1.2) Sodium 134 L (137-145) mmol/L Potassium (3.5-5.1) mmol/L Chloride (98-107) mmol/L Carbon Dioxide 21 L (22-30) mmol/L BUN 33 H (7-17) mg/dL Glucose 134 H (74-99) mg/dL Calcium 8.2 L (8.4-10.2) mg/dL Magnesium (1.6-2.3) mg/dL Total Bilirubin (0.2-1.3) mg/dL Delta Bilirubin (0.0-0.2) mg/dL AST 117 H (14-36) U/L ALT (4-34) U/L Alkaline Phosphatase 446 H (38-126) U/L Creatine Kinase (30-135) U/L Troponin I 0.060 H* (0.000-0.034) ng/mL C-Reactive Protein (<1.0) mg/dL Total Protein 6.1 L (6.3-8.2) g/dL Albumin 2.7 L (3.5-5.0) g/dL Urine Appearance (Clear) Urine Protein (Negative) Urine Ketones (Negative) Urine Blood (Negative) Ur Leukocyte Esterase (Negative) Urine RBC (0-5) /hpf Urine WBC (0-5) /hpf Urine Bacteria (None) /hpf Hyaline Casts (0-2) /lpf Urine Mucus (None) /hpf 07/08/23 07/08/23 Range/Units 11:17 12:24 WBC (3.8-10.6) k/uL Hct (34.0-46.0) % Neutrophils # (1.3-7.7) k/uL Lymphocytes # (1.0-4.8) k/uL PT (10.0-12.5) sec INR (<1.2) Sodium (137-145) mmol/L Potassium 3.3 L (3.5-5.1) mmol/L Chloride (98-107) mmol/L Carbon Dioxide (22-30) mmol/L BUN 32 H (7-17) mg/dL Glucose 190 H (74-99) mg/dL Calcium (8.4-10.2) mg/dL Magnesium (1.6-2.3) mg/dL Total Bilirubin (0.2-1.3) mg/dL Delta Bilirubin 0.8 H (0.0-0.2) mg/dL AST 122 H (14-36) U/L ALT (4-34) U/L Alkaline Phosphatase 463 H (38-126) U/L Creatine Kinase 477 H (30-135) U/L Troponin I (0.000-0.034) ng/mL C-Reactive Protein 8.8 H (<1.0) mg/dL Total Protein 5.9 L (6.3-8.2) g/dL Albumin 2.7 L (3.5-5.0) g/dL Urine Appearance (Clear) Urine Protein (Negative) Urine Ketones (Negative) Urine Blood (Negative) Ur Leukocyte Esterase (Negative) Urine RBC (0-5) /hpf Urine WBC (0-5) /hpf Urine Bacteria (None) /hpf Hyaline Casts (0-2) /lpf Urine Mucus (None) /hpf CT scan - abdomen: report reviewed CT scan - chest: report reviewed CT Scan - head: report reviewed CT scan - pelvis: report reviewed Assessment and Plan (1) Liver mass Current Visit: Yes Status: Acute Priority: High Code(s): R16.0 - HEPATOMEGALY, NOT ELSEWHERE CLASSIFIED SNOMED Code(s): 377986675 (2) Fall Current Visit: Yes Status: Acute Priority: High Code(s): W19.XXXA - UNSPECIFIED FALL, INITIAL ENCOUNTER SNOMED Code(s): 2535947 (3) Dehydration Current Visit: Yes Status: Acute Priority: High Code(s): E86.0 - DEHYDRATION SNOMED Code(s): 27271087 Plan: Liver mass: -History of duodenal cancer. Patient was diagnosed with duodenal cancer in 1998 and was treated in the [facility], although unknown which oncologist/hospital system. She received chemo and RT and underwent Whipple procedure. Patient denies constitutional sx, and daughter states prior to this visit patient has been otherwise rather healthy considering her age and lives independently. -Upon admission CT chest abdomen pelvis showed no acute traumatic injury to chest abdomen or pelvis. Small left pleural effusion. Large heterogeneous mass in the left hepatic lobe measuring approximately 8.4 cm x 5.8 cm x 6.4 cm with ill-defined margins, and cystic dilatation of the pancreatic duct in the body and tail. CT brain and C-spine revealed no acute intracranial abnormalities and no evidence of cervical spine fractures. -Results were discussed with patient at today's visit, however due to confusion I am not sure how much patient was able to understand. I was able to speak with the daughter via telephone at length. Daughter lives out of town and states she is taking a train tomorrow morning and is planning to be in the area by tomorrow night. Discussed with daughter that a biopsy of the liver would need to be obtained to confirm a diagnosis, however she states that patient has previously stated that she did not want to have any other surgeries or systemic chemo, but would like to speak to the patient when she arrives. She states she would like to hold biopsy for now, but is ok with obtaining tumor markers. CA 19-9, AFP, and CEA ordered. Will plan for f/u Monday so we can further speak with patient/family to see how they would like to proceed Time with Patient: Greater than 30
[2023-07-08 19:37] LABS: Basophils % (A) 0 %; Eosinophils % (A) 0 %; HCT 35.3 % (34.0-46.0); HGB 11.7 gm/dL (11.4-16.0); Lymphocytes # (A) 0.8 k/uL (1.0-4.8); Lymphocytes % (A) 4 %; MCH 29.2 pg (25.0-35.0); MCV 88.4 fL (80.0-100.0); Mean Platelet Volume 8.6; Monocytes # (A) 0.6 k/uL (0-1.0); Monocytes % (A) 4 %; Neutrophils # (A) 15.7 k/uL (1.3-7.7); Neutrophils % (A) 91 %; Platelet Count 196 k/uL (150-450); RDW 15.4 % (11.5-15.5); WBC 17.2 k/uL (3.8-10.6)
[2023-07-08 23:50] LABS: Alpha Fetoprotein, Tumor Mkr 3.8 ng/mL (0.00-7.90); Carcinoembryonic Antigen 24.9 ng/mL (0.0-4.9)
[2023-07-09] MEDS ORDERED: FUROSEMIDE 10 MG/ML 2 ML VIAL IV ONE (06:49)
[2023-07-09] MEDS ORDERED: SODIUM CHLORIDE 0.9% 1,000 ML IV SCH (07:00)
--- NOTE | 2023-07-09 08:05 | P.CNNES ---
History of Present Illness Consult date: 07/08/23 Requesting physician: Rafal E Gustavo Reason for Consult: Left arm weakness History of Present Illness: Patient is a 87-year-old right-handed female came to the hospital yesterday at 2:54 PM for altered mental status. Patient actually came to the hospital as patient was found down at home for suspected 3-4 days and was unable to get up. Patient remembers falling and then was unable to stand back up U right-sided pain. She was found on her right side. Baseline is patient is alert and oriented 4. Does not ambulate with a cane or walker. Patient was complaining of right hip pain, and there was bruising as well as pressure wounds. Patient denied any headache or chest pain. Patient was a wellness check and no one had heard from her for multiple days. Patient was last seen on Monday or Monday of the week and she came here on Monday. Patient was found to have rhabdomyolysis, patient was found to have UTI, started on antibiotics. No focal deficits were observed in the ER. Patient tells me that she lives with her . She does have 2 children. She states that she had total hip replacement 4 years ago. Neurology was consulted this morning at 11:10 AM for left arm weakness. I spoke to the nurse, who said that when she came in this morning at 7 AM, patient was lethargic. Subsequently it was noted that she has left arm weakness. Uncertain what time the symptoms started. Please refer to examination below. Patient is not a very good historian. Patient says that she fell at home, and has history of total hip replacement. She fell on the head when trying to reach medication. Vital signs on arrival blood pressure 143/79, pulse rate 100, temperature 96.4. Blood test shows WBC 16.6, normal hemoglobin and platelets. INR is 4.4 sodium 133 potassium 4.8, BUN 36 creatinine 0.58. AST is 141, ALT 37. Ammonia is normal, CK is 1141, troponins are mildly elevated. UA shows moderate leukocytes esterase, moderate bacteria. Urine drug screen negative. Blood alcohol level negative. RSV, influenza screen and coronal virus PCR negative. X-ray of the pelvis shows no evidence of acute fracture or dislocation. Right total hip arthroplasty without complication. X-ray of the right femur showed no fracture. Chest x-ray showed no acute cardiac arrest findings. Shoulder x-ray showed no fracture. Computed tomography scan of the head showed no acute intracranial abnormality. Atrophy and chronic microvessel ischemic disease. I personally reviewed CT head, agree with the findings. CT of the cervical spine showed no evidence of cervical spine fracture. Mild to moderate multilevel cervical spondylosis. CT of the chest abdomen and pelvis showed large heterogeneous mass in the left hepatic lobe, possible metastatic or could reflect primary hepatic or biliary malignancy. There is intrahepatic biliary dilation in the right lobe. Pancreatic head not clearly seen, may be involved by the heterogeneous mass. There is cystic dilation of the pancreatic duct in the body and tail. CT of the thoracic and lumbar spine showed no evidence of acute thoracolumbar spine fracture or traumatic malalignment. Mild to moderate multilevel spondylosis. EKG shows sinus rhythm with sinus arrhythmia. Review of Systems Constitutional: Reports weight loss, Denies chills (Cold), Denies fever Eyes: denies blurred vision, denies pain Ears: deny: decreased hearing, ear discharge Ears, nose, mouth and throat: Denies headache, Denies sore throat Cardiovascular: Denies chest pain, Denies shortness of breath Respiratory: Denies cough, Denies excessive sputum Gastrointestinal: Denies abdominal pain, Denies diarrhea, Denies nausea, Denies vomiting Genitourinary: Reports urge incontinence, Reports urgency, Denies dysuria, Denies hematuria, Denies urinary frequency (depends of fluids) Musculoskeletal: Reports neck pain, Denies low back pain, Denies myalgias Integumentary: Denies pruritus, Denies rash Neurological: Reports weakness, Denies aphasia, Denies loss of vision, Denies vertigo Psychiatric: Denies anxiety, Denies depression Endocrine: Reports weight change, Denies fatigue Hematologic/Lymphatic: Reports easy bruising, Denies easy bleeding Past Medical History Past Medical History: Cancer, Eye Disorder, Osteoarthritis (OA) Additional Past Medical History / Comment(s): DUODENAL CANCER 1998. CATARACTS. OSTEOPOROSIS. ON PO AB FOR UTI. History of Any Multi-Drug Resistant Organisms: None Reported Past Surgical History: Appendectomy, Cholecystectomy, Orthopedic Surgery, Tonsillectomy Additional Past Surgical History / Comment(s): "WHIPPLE PROCEDURE FOR DUODENAL CANCER." SANDRA BUNIONECTOMY. COLONOSCOPY Past Anesthesia/Blood Transfusion Reactions: No Reported Reaction Past Psychological History: No Psychological Hx Reported Smoking Status: Former smoker Past Alcohol Use History: Occasional Additional Past Alcohol Use History / Comment(s): SMOKED AGE 15 ON/OFF, LIGHT, QUIT 1963 Past Drug Use History: None Reported - Past Family History Brother(s) Family Medical History: Cancer Additional Family Medical History / Comment(s): X2 BROTHERS - 1 LUNG, 1 COLON Sister(s) Family Medical History: Cancer Additional Family Medical History / Comment(s): lung cancer Medications and Allergies Home Medications Medication Instructions Recorded Confirmed Type Biotin 5 mg PO DAILY 11/06/18 07/07/23 History Multivitamins, Thera [Multivitamin 1 tab PO DAILY 11/06/18 07/07/23 History (formulary)] Calcium Carbonate/Vitamin D3 1 tab PO DAILY 07/07/23 07/07/23 History [Caltrate 600 Plus D3 20 Mcg (800 Iu)] Cholecalciferol [Vitamin D3 (25 150 mcg PO DAILY 07/07/23 07/07/23 History Mcg = 1000 Iu)] Lutein 20 mg PO DAILY 07/07/23 07/07/23 History Vitamin C Er 500mg 500 mg PO DAILY 07/07/23 07/07/23 History Allergies Allergy/AdvReac Type Severity Reaction Status Date / Time bee pollen Allergy Unknown Verified 07/07/23 17:22 Influenza Virus Vaccines AdvReac Chills, Verified 07/07/23 17:22 flu-like symptoms prednisone AdvReac Nausea & Verified 07/07/23 17:22 Vomiting tramadol AdvReac Hallucinati Verified 07/07/23 17:22 ons Physical Examination - Vital Signs Vital Signs: Vital Signs Temp Pulse Pulse Resp BP BP Pulse Ox 07/08/23 11:22 98.4 F 78 18 158/72 99 07/08/23 08:07 82 18 07/08/23 08:00 98.6 F 82 18 176/88 98 07/08/23 03:33 65 18 161/77 98 07/07/23 23:50 97.9 F 100 18 133/79 100 07/07/23 23:14 94 18 123/64 99 07/07/23 20:36 97.8 F 07/07/23 20:00 83 16 137/74 97 07/07/23 18:00 92 12 130/59 96 07/07/23 17:46 89 16 150/75 96 07/07/23 15:17 96.4 F L 100 18 143/79 99 Intake and Output 07/07/23 07/08/23 07/08/23 22:59 06:59 14:59 Other: Voiding Method External Catheter External Catheter # Voids 2 Weight 43.772 kg 43.772 kg 43.772 kg Patient is an elderly female, in no acute distress. Patient is alert awake oriented to time place and person. Patient knows it is June 2023 and that she is in [facility] in [place] and knows name of the current president Mr. Delacruz. Speech and language functions are normal. Patient can name and repeat very well. No aphasia or dysarthria. Attention, concentration and fund of knowledge is adequate. On cranial nerve examination, pupils are equal, round and reacting to light, visual davies reveal left homonymous hemianopia. Extraocular muscles are intact with no nystagmus. Face is symmetric, tongue protrudes to the midline. Palatal elevation and sensation normal, hearing and shoulder shrug normal, facial sensation normal. On muscle strength testing, there was some fluctuating findings noted. At first it appears patient had complete flaccid left upper limb. Then she was able to move her left arm. Then she had only mild left pronator drift. Overall strength was (right/left) biceps 5/4+5-, [employer] home demonstrator 5/5-deltoid 5/4+. She somewhat neglect her left arm. Hip flexion 3+4-, ankle dorsiflexion 5/2. Deep tendon reflexes are (right/left) biceps 2/3, brachioradialis 2/2, knees 2+/2+ and plantars downgoing on the right, up on the left. Sensory examination also been very inconsistent response. When I would touch right side, patient states that she is feeling in both arms. She would do it consistently. Cerebellar function showed no ataxia for [id number] testing, but he can neglect her left arm for doing the test. Patient not able to perform [id number] testing on either side. Tone is slightly decreased in the left arm and bulk of muscles normal. Gait deferred.. On general examination, there is no carotid bruit or murmur, S1-S2 audible. Chest is clear on consultation. Abdomen is soft nontender. No organomegaly, bowel sounds present. Peripheral pulses are present. No peripheral edema. Results - Laboratory Findings CBC and BMP: 07/08/23 19:10 07/08/23 11:17 Abnormal Lab Findings: Abnormal Labs 07/07/23 07/07/23 07/07/23 15:00 15:00 15:00 WBC 16.6 H Hct 46.2 H Neutrophils # 14.6 H Lymphocytes # PT 42.9 H INR 4.4 H Sodium Potassium Chloride Carbon Dioxide BUN Glucose Calcium Magnesium Total Bilirubin Delta Bilirubin AST ALT Alkaline Phosphatase Creatine Kinase Troponin I C-Reactive Protein Total Protein Albumin Urine Appearance Cloudy H Urine Protein 1+ H Urine Ketones 2+ H Urine Blood Moderate H Ur Leukocyte Esterase Moderate H Urine RBC 7 H Urine WBC 59 H Urine Bacteria Moderate H Hyaline Casts 4 H Urine Mucus Many H 07/07/23 07/07/23 07/07/23 15:00 16:41 20:17 WBC Hct Neutrophils # Lymphocytes # PT INR Sodium 133 L Potassium Chloride 95 L Carbon Dioxide BUN 36 H Glucose 156 H Calcium Magnesium 2.4 H Total Bilirubin 1.6 H Delta Bilirubin AST 141 H ALT 37 H Alkaline Phosphatase 551 H Creatine Kinase 1141 H* Troponin I 0.063 H* 0.043 H* C-Reactive Protein Total Protein Albumin Urine Appearance Urine Protein Urine Ketones Urine Blood Ur Leukocyte Esterase Urine RBC Urine WBC Urine Bacteria Hyaline Casts Urine Mucus 07/07/23 07/08/23 07/08/23 21:30 00:25 11:17 WBC 24.0 H Hct Neutrophils # 22.2 H Lymphocytes # 0.9 L PT INR Sodium 134 L Potassium Chloride Carbon Dioxide 21 L BUN 33 H Glucose 134 H Calcium 8.2 L Magnesium Total Bilirubin Delta Bilirubin AST 117 H ALT Alkaline Phosphatase 446 H Creatine Kinase Troponin I 0.060 H* C-Reactive Protein Total Protein 6.1 L Albumin 2.7 L Urine Appearance Urine Protein Urine Ketones Urine Blood Ur Leukocyte Esterase Urine RBC Urine WBC Urine Bacteria Hyaline Casts Urine Mucus 07/08/23 07/08/23 11:17 12:24 WBC Hct Neutrophils # Lymphocytes # PT INR Sodium Potassium 3.3 L Chloride Carbon Dioxide BUN 32 H Glucose 190 H Calcium Magnesium Total Bilirubin Delta Bilirubin 0.8 H AST 122 H ALT Alkaline Phosphatase 463 H Creatine Kinase 477 H Troponin I C-Reactive Protein 8.8 H Total Protein 5.9 L Albumin 2.7 L Urine Appearance Urine Protein Urine Ketones Urine Blood Ur Leukocyte Esterase Urine RBC Urine WBC Urine Bacteria Hyaline Casts Urine Mucus Assessment and Plan Assessment: * Possible acute ischemic stroke, with left homonymous hemianopia, left sided neglect and mild left-sided weakness. Patient not a candidate for TPA, as unknown onset of symptoms. * History of Whipple's procedure for duodenal cancer. 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 Plan: * Patient has signs of possible CVA. Patient not a candidate for TPA because of unknown last known well. * MRI of the brain without contrast, evaluate for acute CVA * 2-D echo revealed preserved left ventricular size and systolic function, with EF 55-60%. No obvious regional wall motion abnormalities. Normal left atrial size. Moderate pericardial effusion, exudative. This appears old. Fibrinous material overlying the surface of the myocardium. No evidence for tamponade. * Carotid Doppler, rule out stenosis * Fasting a.m. lipid panel with cholesterol 131, LDL 47, HDL 70, triglycerides 65 on 05/12/2023. Patient not a candidate for statins because of low LDL, hepatic disease and coagulopathy. * Hemoglobin A1c 6.8 on 05/12/2023. * Permissive hypertension for next 24-48 hours * Start aspirin 81 mg daily. Will avoid dual antiplatelet medication because of coagulopathy. * Neuro checks as per protocol. * Telemetry monitoring rule out any arrhythmia * PT, OT, speech therapy * DVT prophylaxis: SCDs * We will try to contact family members. * Neurology will continue to follow. Thank you for the consult. Time with Patient: Greater than 30
--- NOTE | 2023-07-09 09:13 | US ---
EXAMINATION TYPE: US carotid duplex BILAT DATE OF EXAM: 07/09/2023 COMPARISON: NONE CLINICAL INDICATION: Female, 87 years old with history of CVA; TECHNIQUE: Carotid duplex ultrasound examination. Indirect Doppler criteria was utilized. FINDINGS: EXAM MEASUREMENTS: RIGHT: Peak Systolic Velocity (PSV) cm/sec ----- Right CCA: 84.5 ----- Right ICA: 93.1 ----- Right ECA: 85.8 ICA/CCA ratio: 1.1 RIGHT: End Diastole cm/sec ----- Right CCA: 11.6 ----- Right ICA: 23.3 ----- Right ECA: 5.5 LEFT: Peak Systolic Velocity (PSV) cm/sec ----- Left CCA: 71.2 ----- Left ICA: 99.2 ----- Left ECA: 138 ICA/CCA ratio: 1.4 LEFT: End Diastole cm/sec ----- Left CCA: 11.5 ----- Left ICA: 21.1 ----- Left ECA: 0.0 VERTEBRALS (direction of flow): Right Vertebral: Antegrade Left Vertebral: Antegrade Rhythm: Normal IMPRESSION: Mild atherosclerotic disease without significant stenosis. Criteria for Assigning % of Stenosis / Diameter reduction (Estimation based on the indirect measurements of the internal carotid artery velocities (ICA PSV). 1. Normal (no stenosis)=ICA PSV < 125 cm/s: ratio < 2.0: ICA EDV<40 cm/s. 2. Less than 50% stenosis=ICA PSV < 125 cm/s: ratio < 2.0: ICA EDV<40 cm/s. 3. 50 to 69% stenosis=ICA PSV of 125 to 230 cm/s: ration 2.0 ? 4.0: ICA EDV 40-100 cm/s. 4. Greater than 70% stenosis to near occlusion= ICA PSV > 230 cm/s: ratio > 4.0: ICA EDV > 100 cm/s. 5. Near occlusion= ICA PSV velocities may be low or undetectable: variable ratio and ICA EDV. 6. Total occlusion=unable to detect flow.
--- NOTE | 2023-07-09 09:28 | P.PN ---
Subjective This is a pleasant 87 years old female with past medical history of Osteoarthritis ,DUODENAL CANCER 1998. C s/p "WHIPPLE PROCEDURE FOR DUODENAL CAN CER." Present because patient was found on the floor and able to get up for 5 days. Patient kind of poor historian on admission. And information was obtained from staff and medical record Patient has diffuse but the pain. Generally weak and tired looking. Follow commands and talks in soft tone. Vitas looks stable and patient is afebrile Labs reviewed, patient has leukocytosis of 16.6, INR is elevated at 4.4, rest of CBC is unremarkable BMP and liver enzymes are reviewed, patient has evidence of mild transaminitis which is improving on repeat test. Creatinine kinase is elevated at 114-1. Troponin mildly elevated at 0.06 and 0.04. Computed tomography scan of the thoracolumbar spine showing no fracture but spondylotic changes CT of the head and neck and cervical spine showing no fracture as well Chest x-ray: No acute process CT of the chest, abdomen and pelvis with IV contrast showing liver mass with intrahepatic duct dilatation. Intrapancreatic duct dilatation and the pancreatic head is not visualized, please refer to the report for more details. Patient received IV fluid and Rocephin and admitted to the general medical floor 07/08/2023 Patient today is awake alert, partially oriented to time place as she knows she is in hospital but not City name or name of the hospital, she could tell the year but not the month. She is oriented to person. She denies any urinary symptoms. No suprapubic tenderness or flank pain. No right upper quadrant pain where she has liver mass. No nausea vomiting and she eats well However she is complaining of from left lateral chest pain below the armpit. 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 Her vitals are stable though and her blood pressure is actually 170/80. She is saturating well on room air. Labs look stable. Leukocytosis worsened 16.6 up to 24 gait. CRP is mildly elevated at 8.8. Blood culture and pfrolcalcitonin are requested. Patient remains on normal saline 75 ml Per hour and ceftriaxone. Patient was given aspirin 160 mg today and continued it 1 mg patient made aware she has a liver mass and she verbalized understanding and acceptance Neurology service been consulted as well as cardiology. As per patient and daughter wishes patient's request to be DO NOT RESUSCITATE 07/09/2023 Patient is awake and alert, she denies specific pain, no breathing difficulty, no abdominal tenderness. She still has weakness in her left upper extremity. On the lateral side there is about 1 inch to 2-Honduran dilator abrasion which is healing. Today she has bilateral leg swelling and hand swelling, she is on normal saline 75 mL/h, not associated to D5 half-normal saline at 50 mL/h. Give one-time dose of Lasix 20 mg. That her blood pressure is elevated at 182/97 therefore we added metoprolol 25 mg. Cardiology were consulted for chest pain and elevated troponin. Echocardiogram showing evidence of exudative pericarditis. Neurology input is appreciated. Patient currently on aspirin 81 mg, carotid duplex is negative for significant stenosis. CHF) and PENDING MRI of the brain is ordered and is pending. Patient is aware about her liver mass, she has history of duodenal mass status post Whipple procedure, oncology team input is appreciated, she has increased tumor markers CEA 24.9 and CEA [id number]. Patient is malnourished and therefore we will start ensure with meals. She remains on ceftriaxone and leukocytosis improvement down to 17,000 Active Medications Generic Name Dose Route Start Last Admin Trade Name Freq PRN Reason Stop Dose Admin Acetaminophen 650 mg 07/07/23 19:58 Acetaminophen Tab 325 Mg Tab PO Q6HR PRN Mild Pain or Fever > 100.5 Aspirin 81 mg 07/08/23 12:15 07/08/23 12:48 Aspirin 81 Mg PO Not Given DAILY MARILIA Famotidine 20 mg 07/08/23 09:00 07/08/23 08:12 Famotidine 20 Mg/2 Ml Vial IV 20 mg DAILY MARILIA Administration Ceftriaxone Sodium 1 gm/ 50 mls @ 100 mls/hr 07/08/23 09:00 07/08/23 08:12 Sodium Chloride IVPB 100 mls/hr Q24HR MARILIA Administration Protocol Dextrose/Sodium Chloride 1,000 mls @ 50 mls/hr 07/09/23 09:30 Dextrose 5%-1/2ns Iv Soln IV .Q20H MARILIA Metoprolol Tartrate 25 mg 07/09/23 09:30 Metoprolol Tartrate 25 Mg Tab PO BID PENDING SALE TO [facility] Miscellaneous Information 1 each 07/08/23 12:03 Potassium Replacement Protocol 1 Each [facility] [place] DAILY PRN Per Protocol Protocol Miscellaneous Information 1 each 07/08/23 12:03 Magnesium Replacement Protocol 1 Each [facility] [place] [place]ANE DAILY PRN Per Protocol Protocol Naloxone HCl 0.2 mg 07/07/23 19:58 Naloxone 0.4 Mg/Ml 1 Ml Vial IV Q2M PRN Opioid Reversal Objective - Vital Signs Vital signs: Vital Signs Temp 97.8 F 07/09/23 09:01 Pulse 89 07/09/23 09:01 Resp 16 07/09/23 09:01 BP 182/97 07/09/23 09:01 Pulse Ox 95 07/09/23 09:01 FiO2 Intake & Output 07/08/23 07/09/23 07/09/23 18:59 06:59 18:59 Intake Total 238 Output Total 300 Balance 238 -300 Weight 43.772 kg Intake: Oral 238 Output: Urine 300 Other: Voiding Method External Catheter External Catheter # Voids 2 # Bowel Movements 1 1 - Exam --GENERAL: The patient is awake, confused, follows commands, not in any acute distress. malnourished and cachectic HEENT: Pupils are round and equally reacting to light. EOMI. No scleral icterus. No conjunctival pallor. Normocephalic, atraumatic. No pharyngeal erythema. No thyromegaly. CARDIOVASCULAR: S1 and S2 present. No murmurs, rubs, or gallops. PULMONARY: Chest is clear to auscultation, no wheezing , no crackles. ABDOMEN: Soft, nontender, nondistended, normoactive bowel sounds. No palpable organomegaly. MUSCULOSKELETAL: No joint swelling or deformity. EXTREMITIES: No cyanosis, clubbing, or pedal edema. -NEUROLOGICAL: Cranial nerves are grossly intact. Upper extremity weakness was somewhat weakened and draped although she can't raise her arm above her head but slower than the right side , the exam is 5/5 and sensation is intact. -SKIN: No rashes. no petechiae. Bruise on the right side with skin sores. Right leg rest area - Labs CBC & Chem 7: 07/08/23 19:10 07/08/23 11:17 Labs: Abnormal Lab Results - Last 24 Hours (Table) 07/08/23 07/08/23 07/08/23 Range/Units 11:17 11:17 12:24 WBC 24.0 H (3.8-10.6) k/uL Neutrophils # 22.2 H (1.3-7.7) k/uL Lymphocytes # 0.9 L (1.0-4.8) k/uL Potassium 3.3 L (3.5-5.1) mmol/L BUN 32 H (7-17) mg/dL Glucose 190 H (74-99) mg/dL Delta Bilirubin 0.8 H (0.0-0.2) mg/dL AST 122 H (14-36) U/L Alkaline Phosphatase 463 H (38-126) U/L Creatine Kinase 477 H (30-135) U/L C-Reactive Protein 8.8 H (<1.0) mg/dL Total Protein 5.9 L (6.3-8.2) g/dL Albumin 2.7 L (3.5-5.0) g/dL Carcinoembryonic Ag (0.0-4.9) ng/mL CA 19-9 Antigen (0.0-34.9) U/mL 07/08/23 07/08/23 Range/Units 14:49 19:10 WBC 17.2 H (3.8-10.6) k/uL Neutrophils # 15.7 H (1.3-7.7) k/uL Lymphocytes # 0.8 L (1.0-4.8) k/uL Potassium (3.5-5.1) mmol/L BUN (7-17) mg/dL Glucose (74-99) mg/dL Delta Bilirubin (0.0-0.2) mg/dL AST (14-36) U/L Alkaline Phosphatase (38-126) U/L Creatine Kinase (30-135) U/L C-Reactive Protein (<1.0) mg/dL Total Protein (6.3-8.2) g/dL Albumin (3.5-5.0) g/dL Carcinoembryonic Ag 24.9 H (0.0-4.9) ng/mL CA 19-9 Antigen 549.0 H (0.0-34.9) U/mL Assessment and Plan Assessment: Left upper extremity weakness suspicious for stroke versus other 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 Patient only mildly confused today Liver mass suspicious for malignancy, with elevated tumor markers CEA and CA 19- 9 Acute urinary tract infection, vs suspected asymptomatic bacteriuria Rhabdomyolysis, Improving Pressure ulcers with bruising to right lateral thigh with pressure skin sores to right hip right iliac crest Malnourished with severe calorie protein malnutrition Coagulopathy secondary to malnutrition Hypoalbuminemia Dehydration leukocytosis Plan: Continue with the findings 1/2 normal saline 50 mL/h Continue with ceftriaxone upon urine culture Dietary consult Oncology team consult for the liver mass, patient may require liver biopsy Follow-up CAT scan of the brain, MRI of the brain, continue with aspirin Consult cardiology for pericardial disease and exudative pericarditis while neurology for her upper extremity weakness on the left side Labs and medication were reviewed.. Continue same treatment. Continue with symptomatic treatment. Resume home medication. Monitor labs and vitals. DVT and GI prophylaxis. Further recommendations as per clinical course of the patient DVT prophylaxis: Coagulopathic GI Prophylaxis: Pepcid PT/OT: Pending Prognosis is guarded
[2023-07-09] MEDS: FAMOTIDINE 20 MG/2 ML VIAL IV SCH (09:51)
--- NOTE | 2023-07-09 10:04 | CT ---
EXAMINATION TYPE: CT brain wo con CT DLP: 1212.4 mGycm, Automated exposure control for dose reduction was used. DATE OF EXAM: 07/09/2023 9:18 AM COMPARISON: CT brain 07/07/2023.. CLINICAL INDICATION:Female, 87 years old with history of cva, CVA TECHNIQUE: Brain: Axial CT images of the brain were obtained with coronal and sagittal reformats created and rev iewed. Contrast used: None. Oral contrast used: None. FINDINGS: Of note, the exam is somewhat motion limited. Brain: Extra-axial spaces: No abnormal extra-axial fluid collections. Ventricular system: Within normal limits Cerebral parenchyma: Cerebral atrophy. No acute intraparenchymal hemorrhage or mass effect. The torres -white junction is well differentiated. Scattered hypoattenuating areas are seen within the white mat ter. Cerebellum: Unremarkable. Mass effect: No evidence of midline shift. Intracranial vasculature: unremarkable Soft tissues: Normal. Calvarium/osseous structures: No depressed skull fracture. Paranasal sinuses and mastoid air cells: Mild scattered paranasal sinus disease. Visualized orbits: Orbital contents are intact. IMPRESSION: No acute intracranial process or significant interval change as visualized.
[2023-07-09] MEDS: METOPROLOL TARTRATE 25 MG TAB PO SCH ×3 (11:26→22:21)
[2023-07-09] MEDS: ASPIRIN 81 MG PO SCH (11:26)
[2023-07-09] MEDS: DEXTROSE 5%-0.45% NACL 1,000 ML IV SCH (11:27)
[2023-07-09 12:21] LABS: INR 1.3 (<1.2); Prothrombin Time 14.1 sec (10.0-12.5)
--- NOTE | 2023-07-09 12:22 | P.CRDCN ---
History of Present Illness Consult date: 07/09/23 Reason for Consult (text): Elevated troponin History of present illness: This is Carlos Enrique Novoa NP, I'm dictating on behalf of Dr. Fermin's H&P and A&P The patient was interviewed and examined. HPI: Patient is a pleasant 87-year-old female with past medical history of duodenal cancer, cataracts, osteoporosis, appendectomy, cholecystectomy, tonsillectomy, and Whipple procedure who presents to the hospital after a fall at home. It is reported that the patient was down for approximately 3-4 days in her home before being found during a wellness check. Patient reports that she had taken a and fill which she states makes her dizzy. She reports that when she got dizzy, she fell and hit her head on the way down. She reports after that she was too weak to get up off the floor. Patient had imaging of the hips and pelvis, femur, chest, shoulder, head and C-spine, chest, abdomen, and pelvis, thoracic and lumbar spine, all demonstrating no acute process, fracture, or other concerning etiology. A repeat brain computed tomography scan this morning continues to demonstrate no acute process. Dopplers of the carotid arteries demonstrated mild atherosclerotic disease without significant stenosis. Creatine kinase was significantly elevated at admission, as well as troponin. Patient was also found to be severely dehydrated. She was subsequently admitted. Cardiology was asked to see the patient secondary to the elevated troponins. This morning patient reports that she's feeling okay. She is denying chest pain, shortness of breath, heart palpitations. Patient states that she felt due to dizziness secondary from taking an Advil. She does not report any significant past cardiac history including stent placement, NC, or va lvular issues. ROS: [No fever, chills, or rigors] [no cough, phlegm, or expectoration] [no nausea, vomiting, or diarrhea] [no hematuria, dysuria] [no musculoskelatal complaints] [no strokes or seizures] [no skin lesions] EXAMINATION: GENERAL: Well-appearing, well-nourished and in no acute distress. NECK: Supple without JVD or thyromegaly. LUNGS: Breath sounds clear to auscultation bilaterally. Respiration equal and unlabored. No wheezes, rales or rhonchi. HEART: Regular rate and rhythm without murmurs, rubs or gallops. S1 and S2 heard. EXTREMITIES: Normal range of motion, no edema. No clubbing or cyanosis. Peripheral pulses intact and strong. REVIEW OF LABS, ECG & MEDICAL DATA: LABS: White count 17.2, hemoglobin 11.7, platelets 196, sodium 138, potassium 3.3, B1 32, creatinine 0.67, creatinine kinase 477, troponin 0.043, 0.060 EKG: Normal sinus rhythm with sinus arrhythmia IMAGIN07/07/2023-hips/pelvis x-ray, femur x-ray, chest x-ray, shoulder x-ray, head/cervical spine CT, chest/abdomen/pelvis CT, thoracic/lumbar spine CT: No acute process or fracture noted. Echocardiogram dated 07/08/2023 demonstrates preserved LV size and systolic function, moderate pericardial effusion, exudative which appears old, fibrinous material overlying the surface of the myocardium, no evidence for tamponade. Carotid Doppler dated 07/09/2023 demonstrates mild atherosclerotic disease without significant stenosis. VITALS: Temp 97.8, pulse 89, respirations 16, blood pressure 182/97, O2 saturation 95% on room air IMPRESSION: 1. Fall of unknown etiology with extended downtime 2. Rhabdomyolysis 3. Elevated troponin 4. Severe dehydration 5. Hypertension PLAN: Obtain manual blood pressure readings. Elevated troponin is likely reactive secondary to patient's elevated CK. Echoca rdiogram shows no significant acute abnormalities. Recommend physical therapy. Internal medicine to manage dehydration and rhabdomyolysis. Further recommendations based on patient's clinical course. Thank you for the consult and allowing us to participate in the care of this patient. Past Medical History Past Medical History: Cancer, Eye Disorder, Osteoarthritis (OA) Additional Past Medical History / Comment(s): DUODENAL CANCER 1998. CATARACTS. OSTEOPOROSIS. ON PO AB FOR UTI. History of Any Multi-Drug Resistant Organisms: None Reported Past Surgical History: Appendectomy, Cholecystectomy, Orthopedic Surgery, Tonsillectomy Additional Past Surgical History / Comment(s): "WHIPPLE PROCEDURE FOR DUODENAL CANCER." SANDRA BUNIONECTOMY. COLONOSCOPY Past Anesthesia/Blood Transfusion Reactions: No Reported Reaction Past Psychological History: No Psychological Hx Reported Smoking Status: Former smoker Past Alcohol Use History: Occasional Additional Past Alcohol Use History / Comment(s): SMOKED AGE 15 ON/OFF, LIGHT, QUIT 1963 Past Drug Use History: None Reported - Past Family History Brother(s) Family Medical History: Cancer Additional Family Medical History / Comment(s): X2 BROTHERS - 1 LUNG, 1 COLON Sister(s) Family Medical History: Cancer Additional Family Medical History / Comment(s): lung cancer Medications and Allergies Home Medications Medication Instructions Recorded Confirmed Type Biotin 5 mg PO DAILY 11/06/18 07/07/23 History Multivitamins, Thera [Multivitamin 1 tab PO DAILY 11/06/18 07/07/23 History (formulary)] Calcium Carbonate/Vitamin D3 1 tab PO DAILY 07/07/23 07/07/23 History [Caltrate 600 Plus D3 20 Mcg (800 Iu)] Cholecalciferol [Vitamin D3 (25 150 mcg PO DAILY 07/07/23 07/07/23 History Mcg = 1000 Iu)] Lutein 20 mg PO DAILY 07/07/23 07/07/23 History Vitamin C Er 500mg 500 mg PO DAILY 07/07/23 07/07/23 History Allergies Allergy/AdvReac Type Severity Reaction Status Date / Time bee pollen Allergy Unknown Verified 07/07/23 17:22 Influenza Virus Vaccines AdvReac Chills, Verified 07/07/23 17:22 flu-like symptoms prednisone AdvReac Nausea & Verified 07/07/23 17:22 Vomiting tramadol AdvReac Hallucinati Verified 07/07/23 17:22 ons Physical Exam Vitals: Vital Signs Temp Pulse Resp BP Pulse Ox 07/09/23 11:31 100 16 178/83 95 07/09/23 09:44 97 07/09/23 09:01 97.8 F 89 16 182/97 95 07/09/23 04:15 83 16 179/79 96 07/09/23 00:30 85 16 170/82 98 07/08/23 19:30 97.7 F 89 16 181/79 97 07/08/23 15:42 98.3 F 62 18 170/80 98 07/08/23 14:00 78 18 Intake and Output 07/08/23 07/09/23 07/09/23 22:59 06:59 14:59 Intake Total 120 Output Total 300 1300 Balance -180 -1300 Intake: Oral 120 Output: Urine 300 1300 Other: Voiding Method External Catheter External Catheter # Voids 2 # Bowel Movements 1 Results 07/08/23 19:10 07/08/23 11:17 CBC 11/18/23 Range/Units 19:10 WBC 17.2 H (3.8-10.6) k/uL RBC 4.00 (3.80-5.40) m/uL Hgb 11.7 (11.4-16.0) gm/dL Hct 35.3 (34.0-46.0) % Plt Count 196 (150-450) k/uL Current Medications Generic Name Dose Route Start Last Admin Trade Name Freq PRN Reason Stop Dose Admin Acetaminophen 650 mg 07/07/23 19:58 Acetaminophen Tab 325 Mg Tab PO Q6HR PRN Mild Pain or Fever > 100.5 Aspirin 81 mg 07/08/23 12:15 07/09/23 11:26 Aspirin 81 Mg PO 81 mg DAILY MARILIA Administration Famotidine 20 mg 07/08/23 09:00 07/09/23 09:51 Famotidine 20 Mg/2 Ml Vial IV 20 mg DAILY MARILIA Administration Ceftriaxone Sodium 1 gm/ 50 mls @ 100 mls/hr 07/08/23 09:00 07/09/23 09:51 Sodium Chloride IVPB 100 mls/hr Q24HR MARILIA Administration Protocol Dextrose/Sodium Chloride 1,000 mls @ 50 mls/hr 07/09/23 09:30 07/09/23 11:27 Dextrose 5%-1/2ns Iv Soln IV 50 mls/hr .Q20H MARILIA Administration Metoprolol Tartrate 25 mg 07/09/23 09:30 07/09/23 11:26 Metoprolol Tartrate 25 Mg Tab PO 25 mg BID MARILIA Administration Miscellaneous Information 1 each 07/08/23 12:03 Potassium Replacement Protocol 1 Each Misc MISCELLANE DAILY PRN Per Protocol Protocol Miscellaneous Information 1 each 07/08/23 12:03 Magnesium Replacement Protocol 1 Each Misc MISCELLANE DAILY PRN Per Protocol Protocol Naloxone HCl 0.2 mg 07/07/23 19:58 Naloxone 0.4 Mg/Ml 1 Ml Vial IV Q2M PRN Opioid Reversal Intake and Output 07/08/23 07/09/23 07/09/23 22:59 06:59 14:59 Intake Total 120 Output Total 300 1300 Balance -180 -1300 Intake: Oral 120 Output: Urine 300 1300 Other: Voiding Method External Catheter External Catheter # Voids 2 # Bowel Movements 1 07/08/23 19:10 07/08/23 11:17
[2023-07-09 12:23] LABS: ALT 53 U/L (4-34); African American GFR (CKD) >90 (>60 ml/min/1.73 sqM); Albumin 2.7 g/dL (3.5-5.0); Anion Gap 9 mmol/L; Bilirubin, Delta 1.3 mg/dL (0.0-0.2); Bilirubin,Unconjugated 0.7 mg/dL (0.0-1.1); Blood Urea Nitrogen 25 mg/dL (7-17); Calcium 8.5 mg/dL (8.4-10.2); Carbon Dioxide 25 mmol/L (22-30); Chloride 105 mmol/L (98-107); Glucose 179 mg/dL (74-99); Non-African American GFR(CKD) >90 (>60 ml/min/1.73 sqM); Sodium 139 mmol/L (137-145); Total Protein 6.1 g/dL (6.3-8.2)
[2023-07-09 12:40] LABS: Basophils % (A) 0 %; Eosinophils % (A) 0 %; HCT 40.6 % (34.0-46.0); HGB 13.2 gm/dL (11.4-16.0); Lymphocytes # (A) 0.8 k/uL (1.0-4.8); Lymphocytes % (A) 5 %; MCH 28.7 pg (25.0-35.0); MCHC 32.6 g/dL (31.0-37.0); Mean Platelet Volume 9.7; Monocytes # (A) 0.5 k/uL (0-1.0); Monocytes % (A) 4 %; Neutrophils # (A) 13.3 k/uL (1.3-7.7); Neutrophils % (A) 90 %; Platelet Count 153 k/uL (150-450); RBC 4.62 m/uL (3.80-5.40); RDW 15.5 % (11.5-15.5); WBC 14.8 k/uL (3.8-10.6)
[2023-07-09 12:48] LABS: AST 231 U/L (14-36); Alkaline Phosphatase 673 U/L (38-126); Magnesium 2.1 mg/dL (1.6-2.3); Potassium 4.3 mmol/L (3.5-5.1)
[2023-07-09] MEDS: amLODIPine 5 MG TAB PO SCH (18:54)
--- NOTE | 2023-07-10 00:20 | P.PN ---
Subjective Progress Note Date: 07/09/23 Patient was seen for a follow-up. Patient is more encephalopathic, leading diagonally in the bed. She is more groggy. Patient is mumbling. Objective - Vital Signs Vital signs: Vital Signs Temp 97.8 F 07/09/23 16:32 Pulse 91 07/09/23 16:32 Resp 16 07/09/23 16:32 BP 196/96 07/09/23 16:32 Pulse Ox 95 07/09/23 16:32 FiO2 Intake & Output 07/08/23 07/09/23 07/09/23 18:59 06:59 18:59 Intake Total 238 Output Total 300 2875 Balance 238 -300 -2875 Weight 43.772 kg Intake: Oral 238 Output: Urine 300 2875 Other: Voiding Method External Catheter External Catheter External Catheter # Voids 2 # Bowel Movements 1 1 - Exam Patient is encephalopathic. Mentation slightly worse. Patient's face is symmetric. Pupils are round and reacting, gaze is midline. On muscle strength testing, patient again has significant flaccidity of the left upper limb. I spoke to the nurse, who said that patient's left arm is fluctua ting, like I noticed yesterday. Sometimes she is moving her left arm, using it fairly normally, but other times it appears flaccid. The nurse actually saw her moving and using her left arm, but later she was flaccid. Rest of the examination could not be performed because of her mental status. - Labs CBC & Chem 7: 07/09/23 11:54 07/09/23 11:54 Labs: Abnormal Lab Results - Last 24 Hours (Table) 07/08/23 07/08/23 07/09/23 Range/Units 14:49 19:10 11:54 WBC 17.2 H (3.8-10.6) k/uL Neutrophils # 15.7 H (1.3-7.7) k/uL Lymphocytes # 0.8 L (1.0-4.8) k/uL PT (10.0-12.5) sec INR (<1.2) BUN 25 H (7-17) mg/dL Creatinine 0.44 L (0.52-1.04) mg/dL Glucose 179 H (74-99) mg/dL Total Bilirubin 4.0 H (0.2-1.3) mg/dL Conjugated Bilirubin 2.0 H (0.0-0.3) mg/dL Delta Bilirubin 1.3 H (0.0-0.2) mg/dL AST 231 H (14-36) U/L ALT 53 H (4-34) U/L Alkaline Phosphatase 673 H (38-126) U/L Total Protein 6.1 L (6.3-8.2) g/dL Albumin 2.7 L (3.5-5.0) g/dL Carcinoembryonic Ag 24.9 H (0.0-4.9) ng/mL CA 19-9 Antigen 549.0 H (0.0-34.9) U/mL 07/09/23 07/09/23 Range/Units 11:54 11:54 WBC 14.8 H (3.8-10.6) k/uL Neutrophils # 13.3 H (1.3-7.7) k/uL Lymphocytes # 0.8 L (1.0-4.8) k/uL PT 14.1 H (10.0-12.5) sec INR 1.3 H (<1.2) BUN (7-17) mg/dL Creatinine (0.52-1.04) mg/dL Glucose (74-99) mg/dL Total Bilirubin (0.2-1.3) mg/dL Conjugated Bilirubin (0.0-0.3) mg/dL Delta Bilirubin (0.0-0.2) mg/dL AST (14-36) U/L ALT (4-34) U/L Alkaline Phosphatase (38-126) U/L Total Protein (6.3-8.2) g/dL Albumin (3.5-5.0) g/dL Carcinoembryonic Ag (0.0-4.9) ng/mL CA 19-9 Antigen (0.0-34.9) U/mL Assessment and Plan Assessment: * Possible acute ischemic stroke, with left homonymous hemianopia, left sided neglect and mild left-sided weakness. Patient not a candidate for TPA, as unknown onset of symptoms. * Fluctuating left arm weakness, unclear cause. Rule out focal seizure. Rule out TIA. * History of Whipple's procedure for duodenal cancer. 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 Plan: * Patient has signs of possible CVA. Patient not a candidate for TPA because of unknown last known well. * MRI of the brain was ordered, but cannot get clearance because of presence of some biliary stent. * Repeat CT head performed today revealed no acute intracranial process or significant interval change as visualized. I personally reviewed CT head and agree with the findings. * 2-D echo revealed preserved left ventricular size and systolic function, with EF 55-60%. No obvious regional wall motion abnormalities. Normal left atrial size. Moderate pericardial effusion, exudative. This appears old. Fibrinous material overlying the surface of the myocardium. No evidence for tamponade. * Carotid Doppler revealed mild atherosclerotic disease without significant stenosis. Antegrade flow in both vertebral arteries. * Check EEG in the morning. * If mentation does not improve, may consider lumbar puncture. * Fasting a.m. lipid panel with cholesterol 131, LDL 47, HDL 70, triglycerides 65 on 05/12/2023. Patient not a candidate for statins because of low LDL, hepatic disease and coagulopathy. * Hemoglobin A1c 6.8 on 05/12/2023. * Ammonia < 9. Check B12, folate * Optimize control of blood pressure. * Start aspirin 81 mg daily. Will avoid dual antiplatelet medication because of hepatic disease. CT head showed no obvious CVA. * Neuro checks as per protocol. * Telemetry monitoring rule out any arrhythmia * PT, OT, speech therapy * DVT prophylaxis: SCDs * Tried to contact patient's daughter, but apparently she is coming from [place] in a train. She will arrive at 8 PM. * Dr. Ar Hahn Will resume neurology service in the morning.
[2023-07-10] MEDS ORDERED: hydrALAZINE HCL 20 MG/ML 1 ML VIAL IVP STA (01:23)
[2023-07-10] MEDS: METOPROLOL TARTRATE 25 MG TAB PO SCH (08:50)
[2023-07-10] MEDS: FAMOTIDINE 20 MG/2 ML VIAL IV SCH (08:50)
[2023-07-10] MEDS: ASPIRIN 81 MG PO SCH (08:50)
[2023-07-10] MEDS: amLODIPine 5 MG TAB PO SCH (08:50)
[2023-07-10] MEDS: DEXTROSE 5%-0.45% NACL 1,000 ML IV SCH (08:51)
[2023-07-10 08:55] LABS: Basophils % (A) 0 %; Eosinophils % (A) 0 %; HCT 40.4 % (34.0-46.0); Lymphocytes # (A) 0.6 k/uL (1.0-4.8); Lymphocytes % (A) 5 %; MCH 28.6 pg (25.0-35.0); MCHC 32.2 g/dL (31.0-37.0); Mean Platelet Volume 9.2; Monocytes # (A) 0.4 k/uL (0-1.0); Monocytes % (A) 3 %; Neutrophils # (A) 12.1 k/uL (1.3-7.7); Neutrophils % (A) 90 %; Platelet Count 178 k/uL (150-450); RBC 4.54 m/uL (3.80-5.40); RDW 15.6 % (11.5-15.5); WBC 13.4 k/uL (3.8-10.6)
[2023-07-10 09:03] LABS: African American GFR (CKD) >90 (>60 ml/min/1.73 sqM); Anion Gap 6 mmol/L; Blood Urea Nitrogen 17 mg/dL (7-17); Calcium 8.4 mg/dL (8.4-10.2); Carbon Dioxide 30 mmol/L (22-30); Chloride 103 mmol/L (98-107); Glucose 208 mg/dL (74-99); Non-African American GFR(CKD) >90 (>60 ml/min/1.73 sqM); Sodium 139 mmol/L (137-145)
[2023-07-10 09:07] LABS: Potassium 2.7 mmol/L (3.5-5.1)
--- NOTE | 2023-07-10 10:59 | P.PN ---
Subjective Progress Note Date: 07/10/23 HPI: Patient is a pleasant 87-year-old female with past medical history of duodenal cancer, cataracts, osteoporosis, appendectomy, cholecystectomy, tonsillectomy, and Whipple procedure who presents to the hospital after a fall at home. It is reported that the patient was down for approximately 3-4 days in her home before being found during a wellness check. Patient reports that she had taken a and fill which she states makes her dizzy. She reports that when she got dizzy, she fell and hit her head on the way down. She reports after that she was too weak to get up off the floor. Patient had imaging of the hips and pelvis, femur, chest, shoulder, head and C-spine, chest, abdomen, and pelvis, thoracic and lumbar spine, all demonstrating no acute process, fracture, or other concerning etiology. A repeat brain computed tomography scan this morning continues to demonstrate no acute process. Dopplers of the carotid arteries demonstrated mild atherosclerotic disease without significant stenosis. Creatine kinase was significantly elevated at admission, as well as troponin. Patient was also found to be severely dehydrated. She was subsequently admitted. Cardiology was asked to see the patient secondary to the elevated troponins. This morning patient reports that she's feeling okay. She is denying chest pain, shortness of breath, heart palpitations. Patient states that she felt due to dizziness secondary from taking an Advil. She does not report any significant past cardiac history including stent placement, NM, or valvular issues. REVIEW OF LABS, ECG & MEDICAL DATA: LABS: White count 17.2, hemoglobin 11.7, platelets 196, sodium 138, potassium 3.3, B1 32, creatinine 0.67, creatinine kinase 477, troponin 0.043, 0.060 EKG: Normal sinus rhythm with sinus arrhythmia IMAGIN07/07/2023-hips/pelvis x-ray, femur x-ray, chest x-ray, shoulder x-ray, head/cervical spine CT, chest/abdomen/pelvis CT, thoracic/lumbar spine CT: No acute process or fracture noted. Echocardiogram dated 07/08/2023 demonstrates preserved LV size and systolic function, moderate pericardial effusion, exudative which appears old, fibrinous material overlying the surface of the myocardium, no evidence for tamponade. Carotid Doppler dated 07/09/2023 demonstrates mild atherosclerotic disease without significant stenosis. VITALS: Temp 97.8, pulse 89, respirations 16, blood pressure 182/97, O2 satu ration 95% on room air 07/10 Patient is seen today in follow-up. Patient denies having any chest pain. Blood pressure 159/80, heart rate 102, afebrile, pulse ox 96% on room air. Repeat blood work reveals WBC 13.4. Potassium 2.7, BUN 17 creatinine 0.37. Noted that patient's CEA came back elevated at 24.9 and CA 199 at 549. AFP tumor marker was normal at 3.8. EXAMINATION: GENERAL: Well-appearing, well-nourished and in no acute distress. NECK: Supple without JVD or thyromegaly. LUNGS: Breath sounds clear to auscultation bilaterally. Respiration equal and unlabored. No wheezes, rales or rhonchi. HEART: Regular rate and rhythm without murmurs, rubs or gallops. S1 and S2 heard. EXTREMITIES: Normal range of motion, no edema. No clubbing or cyanosis. Peripheral pulses intact and strong. IMPRESSION: 1. Fall of unknown etiology with extended downtime 2. Rhabdomyolysis 3. Elevated troponin 4. Severe dehydration 5. Hypertension Liver mass Elevated CEA and CA 199 PLAN: Replace potassium Elevated troponin is likely reactive secondary to patient's elevated CK. Echocardiogram shows no significant acute abnormalities. Cardiology will sign off this case and follow on an as-needed basis. Please reconsult for any new concerns. Nurse practitioner note has been reviewed, I agree with the documented findings and plan of care. Patient was seen and examined. Objective - Vital Signs Vital signs: Vital Signs Temp 98.6 F 07/10/23 08:44 Pulse 102 H 07/10/23 08:44 Resp 16 07/10/23 08:44 BP 159/80 07/10/23 08:44 Pulse Ox 96 07/10/23 08:44 FiO2 Intake & Output 07/09/23 07/10/23 07/10/23 18:59 06:59 18:59 Intake Total 200 Output Total 2875 300 Balance -6595 -300 Intake: Oral 200 Output: Urine 2875 300 Other: Voiding Method External Catheter External Catheter # Bowel Movements 1 - Labs CBC & Chem 7: 07/10/23 08:19 07/10/23 08:19 Labs: Abnormal Lab Results - Last 24 Hours (Table) 07/09/23 07/09/23 07/09/23 Range/Units 11:54 11:54 11:54 WBC 14.8 H (3.8-10.6) k/uL RDW (11.5-15.5) % Neutrophils # 13.3 H (1.3-7.7) k/uL Lymphocytes # 0.8 L (1.0-4.8) k/uL PT 14.1 H (10.0-12.5) sec INR 1.3 H (<1.2) BUN 25 H (7-17) mg/dL Creatinine 0.44 L (0.52-1.04) mg/dL Glucose 179 H (74-99) mg/dL Total Bilirubin 4.0 H (0.2-1.3) mg/dL Conjugated Bilirubin 2.0 H (0.0-0.3) mg/dL Delta Bilirubin 1.3 H (0.0-0.2) mg/dL AST 231 H (14-36) U/L ALT 53 H (4-34) U/L Alkaline Phosphatase 673 H (38-126) U/L Total Protein 6.1 L (6.3-8.2) g/dL Albumin 2.7 L (3.5-5.0) g/dL 07/10/23 Range/Units 08:19 WBC 13.4 H (3.8-10.6) k/uL RDW 15.6 H (11.5-15.5) % Neutrophils # 12.1 H (1.3-7.7) k/uL Lymphocytes # 0.6 L (1.0-4.8) k/uL PT (10.0-12.5) sec INR (<1.2) BUN (7-17) mg/dL Creatinine (0.52-1.04) mg/dL Glucose (74-99) mg/dL Total Bilirubin (0.2-1.3) mg/dL Conjugated Bilirubin (0.0-0.3) mg/dL Delta Bilirubin (0.0-0.2) mg/dL AST (14-36) U/L ALT (4-34) U/L Alkaline Phosphatase (38-126) U/L Total Protein (6.3-8.2) g/dL Albumin (3.5-5.0) g/dL Microbiology - Last 24 Hours (Table) 07/08/23 12:24 Blood Culture - Preliminary Blood 07/07/23 15:00 Urine Culture - Preliminary Urine,Catheterized Gram Neg Bacilli
[2023-07-10] MEDS: POTASSIUM CHLORIDE 10 MEQ in WATER FOR INJECTION 1 100ML.BAG IVPB SCH ×6 (11:16→17:32)
--- NOTE | 2023-07-10 11:33 | CDI ---
Documentation Clarification Form Date: From: Alina Tee Phone: [phone] Admit Date: 07/07/2023 07:58:00 PM Patient Name: Lo Nash Visit Number: [id number] Discharge Date: ATTENTION: The Clinical Documentation Specialists (CDI) and [facility] Coding Staff appreciate your assistance in clarifying documentation. Please respond to the clarification below the line at the bottom and electronically sign. The CDI & [facility] Coding staff will review the response and follow-up if needed. Please note: Queries are made part of the Legal Health Record. If you have any questions, please contact the author of this message via ITS. Dr. Rafal Chen Rhabdomyolysis is documented in the H&P on 07/07. Additional clarification regarding the type of rhabdomyolysis is requested. History/Risk Factors: " 87 years old female with past medical history of Osteoarthritis, DUODENAL CANCER 1998. C s/p "WHIPPLE PROCEDURE FOR DUODENAL CANCER." Per H&P on 07/07 Clinical Indicators: "Present because patient was found on the floor and able to get up for 5 days." - Per H&P on 07/07 CK: 07/07 - 1141, 07/08 - 477 Treatment: Per H&P on 07/07 "Continue with normal saline 75 mL/h Monitor labs and vitals." Please clarify the type of rhabdomyolysis, if known: [ ] Traumatic rhabdomyolysis due to prolonged immobility [ ] Other, please specify [ ] Unable to Determine Traumatic rhabdomyolysis due to prolonged immobility MTDD
--- NOTE | 2023-07-10 11:34 | CDI ---
Documentation Clarification Form Date: From: Alina eTe Phone: [phone] Admit Date: 07/07/2023 07:58:00 PM Patient Name: Lo Nash Visit Number: [id number] Discharge Date: ATTENTION: The Clinical Documentation Specialists (CDI) and [facility] Coding Staff appreciate your assistance in clarifying documentation. Please respond to the clarification below the line at the bottom and electronically sign. The CDI & [facility] Coding staff will review the response and follow-up if needed. Please note: Queries are made part of the Legal Health Record. If you have any questions, please contact the author of this message via ITS. Dr. Lyles E Sheet Your patient has elevated troponin levels. Please clarify if there is an additional diagnosis and/or clinical significance related to this value. Patient history/risk factors: "87-year-old female with past medical history of duodenal cancer, cataracts, osteoporosis, appendectomy, cholecystectomy, tonsillectomy, and Whipple procedure who presents to the hospital after a fall at home." - Per Cardiology Note on 07/09 Clinical indicators: "She is denying chest pain, shortness of breath, heart palpitations. Patient states that she felt due to dizziness secondary from taking an Advil." "Elevated troponin is likely reactive secondary to patient's elevated CK." "Echocardiogram shows no significant acute abnormalities." - Per Cardiology Note on 07/09 Troponin: 07/07 - 0.043, 07/08 - 0.060 Treatment: Cardiology Consult, Echocardiogram Is there an additional diagnosis and/or clinical significance related to the above lab result/information: [ ] Non-ischemic with acute myocardial injury [ ] No additional diagnosis/Not clinically significant [ ] Other, please specify [ ] Unable to determine none MTDD
--- NOTE | 2023-07-10 13:37 | P.PN ---
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 Patient kind of poor historian on admission. And information was obtained from staff and medical record Patient has diffuse but the pain. Generally weak and tired looking. Follow commands and talks in soft tone. Vitas looks stable and patient is afebrile Labs reviewed, patient has leukocytosis of 16.6, INR is elevated at 4.4, rest of CBC is unremarkable BMP and liver enzymes are reviewed, patient has evidence of mild transaminitis which is improving on repeat test. Creatinine kinase is elevated at 114-1. Troponin mildly elevated at 0.06 and 0.04. Computed tomography scan of the thoracolumbar spine showing no fracture but spondylotic changes CT of the head and neck and cervical spine showing no fracture as well Chest x-ray: No acute process CT of the chest, abdomen and pelvis with IV contrast showing liver mass with intrahepatic duct dilatation. Intrapancreatic duct dilatation and the pancreatic head is not visualized, please refer to the report for more details. Patient received IV fluid and Rocephin and admitted to the general medical floor 07/08/2023 Patient today is awake alert, partially oriented to time place as she knows she is in hospital but not City name or name of the hospital, she could tell the year but not the month. She is oriented to person. She denies any urinary symptoms. No suprapubic tenderness or flank pain. No right upper quadrant pain where she has liver mass. No nausea vomiting and she eats well However she is complaining of from left lateral chest pain below the armpit. 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 Her vitals are stable though and her blood pressure is actually 170/80. She is saturating well on room air. Labs look stable. Leukocytosis worsened 16.6 up to 24 gait. CRP is mildly elevated at 8.8. Blood culture and pfrolcalcitonin are requested. Patient remains on normal saline 75 ml Per hour and ceftriaxone. Patient was given aspirin 160 mg today and continued it 1 mg patient made aware she has a liver mass and she verbalized understanding and acceptance Neurology service been consulted as well as cardiology. As per patient and daughter wishes patient's request to be DO NOT RESUSCITATE 07/09/2023 Patient is awake and alert, she denies specific pain, no breathing difficulty, no abdominal tenderness. She still has weakness in her left upper extremity. On the lateral side there is about 1 inch to 2-Romansh dilator abrasion which is healing. Today she has bilateral leg swelling and hand swelling, she is on normal saline 75 mL/h, not associated to D5 half-normal saline at 50 mL/h. Give one-time dose of Lasix 20 mg. That her blood pressure is elevated at 182/97 therefore we added metoprolol 25 mg. Cardiology were consulted for chest pain and elevated troponin. Echocardiogram showing evidence of exudative pericarditis. Neurology input is appreciated. Patient currently on aspirin 81 mg, carotid duplex is negative for significant stenosis. CHF) and PENDING MRI of the brain is ordered and is pending. Patient is aware about her liver mass, she has history of duodenal mass status post Whipple procedure, oncology team input is appreciated, she has increased tumor markers CEA 24.9 and CEA [id number]. Patient is malnourished and therefore we will start ensure with meals. She remains on ceftriaxone and leukocytosis improvement down to 17,000 07/10. Patient seen and examined. WBC this morning is 13.4, hemoglobin 13, platelet count 178, sodium 139, potassium 2.7, BUN 17, creatinine 0.37. Daughter at the bedside. Discussed with her in the presence of nursing staff neurology regarding goals of care. Daughter expressed that she will talk to rest of family and will probably be leaning towards comfort care, does not want any invasive testing. REVIEW OF SYSTEMS: CONSTITUTIONAL: No fever, no malaise,. CARDIOVASCULAR: No chest pain, no palpitations, no syncope. PULMONARY: No shortness of breath, no cough, GASTROINTESTINAL: No diarrhea, no nausea, no vomiting, no abdominal pain. NEUROLOGICAL: No headaches, no weakness, PHYSICAL EXAMINATION: GENERAL: The patient is alert, not in any acute distress. Chronically ill- looking HEENT: Pupils are round and equally reacting to light. EOMI. No scleral icterus. No conjunctival pallor. Normocephalic, atraumatic. No pharyngeal erythema. No thyromegaly. CARDIOVASCULAR: S1 and S2 present. No murmurs, rubs, or gallops. PULMONARY: Chest is clear to auscultation, no wheezing or crackles. ABDOMEN: Soft, nontender, nondistended, normoactive bowel sounds. No palpable organomegaly. MUSCULOSKELETAL: No joint swelling or deformity. EXTREMITIES: No cyanosis, clubbing, or pedal edema. NEUROLOGICAL: Left upper extremity weakness, cranial nerves II through XII intact SKIN: No rashes. Assessment and plan Left upper extremity weakness suspicious for stroke versus other Fall Elevated troponin Metabolic encephalopathy, improved. Patient only mildly confused today Liver mass suspicious for malignancy, with elevated tumor markers CEA and CA 19- 9 Acute urinary tract infection Rhabdomyolysis, Improving Pressure ulcers with bruising to right lateral thigh with pressure skin sores to right hip right iliac crest Malnourished with severe calorie protein malnutrition Coagulopathy secondary to malnutrition Hypoalbuminemia Dehydration leukocytosis Monitor vital signs Monitor CBC Monitor CMP Continue telemetry monitoring Encourage use of incentive spirometer MRI of the brain was ordered, but cannot get clearance because of presence of some biliary stent. Repeat CT head performed today revealed no acute intracranial process or significant interval change as visualized. 2-D echo revealed preserved left ventricular size and systolic function, with EF 55-60%. No obvious regional wall motion abnormalities. Normal left atrial size. Moderate pericardial effusion, exudative. This appears old. Fibrinous material overlying the surface of the myocardium. No evidence for tamponade. Carotid Doppler revealed mild atherosclerotic disease without significant stenosis. Antegrade flow in both vertebral arteries. EEG ordered Continue with the findings 1/2 normal saline 50 mL/h Continue with ceftriaxone upon urine culture Dietary consult Oncology team consult for the liver mass, Potassium replacement ordered In regards to hypertension continue Norvasc Consult ID Had long discussion with patient's daughter regarding goals of care and poor prognosis she is agreeable to talk to palliative care and hospice, will get hospice consult Labs and medication were reviewed.. Continue same treatment. Continue with symptomatic treatment. Resume home medication. Monitor labs and vitals. DVT and GI prophylaxis. Further recommendations as per clinical course of the patient Dictation was produced using [employer] dictation software. please excuse any gramma tical, word or spelling errors. Objective - Vital Signs Vital signs: Vital Signs Temp 98.6 F 07/10/23 08:44 Pulse 102 H 07/10/23 08:44 Resp 16 07/10/23 08:44 BP 159/80 07/10/23 08:44 Pulse Ox 98 07/10/23 09:26 FiO2 Intake & Output 07/09/23 07/10/23 07/10/23 18:59 06:59 18:59 Intake Total 200 Output Total 2875 300 Balance -2675 -300 Intake: Oral 200 Output: Urine 2875 300 Other: Voiding Method External Catheter External Catheter # Bowel Movements 1 - Labs CBC & Chem 7: 07/10/23 08:19 07/10/23 08:19 Labs: Abnormal Lab Results - Last 24 Hours (Table) 07/09/23 07/09/23 07/09/23 Range/Units 11:54 11:54 11:54 WBC 14.8 H (3.8-10.6) k/uL RDW (11.5-15.5) % Neutrophils # 13.3 H (1.3-7.7) k/uL Lymphocytes # 0.8 L (1.0-4.8) k/uL PT 14.1 H (10.0-12.5) sec INR 1.3 H (<1.2) Potassium (3.5-5.1) mmol/L BUN 25 H (7-17) mg/dL Creatinine 0.44 L (0.52-1.04) mg/dL Glucose 179 H (74-99) mg/dL Total Bilirubin 4.0 H (0.2-1.3) mg/dL Conjugated Bilirubin 2.0 H (0.0-0.3) mg/dL Delta Bilirubin 1.3 H (0.0-0.2) mg/dL AST 231 H (14-36) U/L ALT 53 H (4-34) U/L Alkaline Phosphatase 673 H (38-126) U/L Total Protein 6.1 L (6.3-8.2) g/dL Albumin 2.7 L (3.5-5.0) g/dL 07/10/23 07/10/23 Range/Units 08:19 08:19 WBC 13.4 H (3.8-10.6) k/uL RDW 15.6 H (11.5-15.5) % Neutrophils # 12.1 H (1.3-7.7) k/uL Lymphocytes # 0.6 L (1.0-4.8) k/uL PT (10.0-12.5) sec INR (<1.2) Potassium 2.7 L* (3.5-5.1) mmol/L BUN (7-17) mg/dL Creatinine 0.37 L (0.52-1.04) mg/dL Glucose 208 H (74-99) mg/dL Total Bilirubin (0.2-1.3) mg/dL Conjugated Bilirubin (0.0-0.3) mg/dL Delta Bilirubin (0.0-0.2) mg/dL AST (14-36) U/L ALT (4-34) U/L Alkaline Phosphatase (38-126) U/L Total Protein (6.3-8.2) g/dL Albumin (3.5-5.0) g/dL Microbiology - Last 24 Hours (Table) 07/08/23 12:24 Blood Culture - Preliminary Blood 07/07/23 15:00 Urine Culture - Preliminary Urine,Catheterized Gram Neg Bacilli
--- NOTE | 2023-07-10 13:50 | P.PN ---
Subjective Progress Note Date: 07/10/23 Principal diagnosis: Liver mass, Hx duodenal carcinoma In f/u today pt daughter is at bedside. At moments pt is lucid and is appropriate, the she is noted to be hallucinating at other times, talking to people who are not there. Pt denied pain, and when asked how she was doing she said good and asked how I was doing. Pt is very pleasant. Objective - Vital Signs Vital signs: Vital Signs Temp 98.1 F 07/10/23 11:23 Pulse 76 07/10/23 11:23 Resp 16 07/10/23 11:23 BP 172/81 07/10/23 11:23 Pulse Ox 98 07/10/23 11:23 FiO2 Intake & Output 07/09/23 07/10/23 07/10/23 18:59 06:59 18:59 Intake Total 200 Output Total 2875 300 Balance -2675 -300 Intake: Oral 200 Output: Urine 2875 300 Other: Voiding Method External Catheter External Catheter External Catheter # Voids 1 # Bowel Movements 1 - Constitutional General appearance: Present: cooperative, no acute distress, thin - EENT Eyes: Present: anicteric sclerae ENT: Present: hearing grossly normal - Respiratory Details: resp even and unlabored - Cardiovascular Details: skin warm and dry to touch - Neurologic Neurologic: Present: focal deficits - Musculoskeletal Musculoskeletal: Present: generalized weakness - Psychiatric Psychiatric: Present: A&O x's 3, appropriate affect, intact judgment & insight - Labs CBC & Chem 7: 07/10/23 08:19 07/10/23 08:19 Labs: Abnormal Lab Results - Last 24 Hours (Table) 07/10/23 07/10/23 Range/Units 08:19 08:19 WBC 13.4 H (3.8-10.6) k/uL RDW 15.6 H (11.5-15.5) % Neutrophils # 12.1 H (1.3-7.7) k/uL Lymphocytes # 0.6 L (1.0-4.8) k/uL Potassium 2.7 L* (3.5-5.1) mmol/L Creatinine 0.37 L (0.52-1.04) mg/dL Glucose 208 H (74-99) mg/dL Microbiology - Last 24 Hours (Table) 07/08/23 12:24 Blood Culture - Preliminary Blood 07/07/23 15:00 Urine Culture - Preliminary Urine,Catheterized Gram Neg Bacilli - Imaging and Cardiology CT Scan - head: report reviewed Assessment and Plan (1) Liver mass Current Visit: Yes Status: Acute Priority: High Code(s): R16.0 - HEPATOMEGALY, NOT ELSEWHERE CLASSIFIED SNOMED Code(s): 087942853 Plan: Liver mass, Hx of duodenal carcinoma -Discussed case with pt and daughter sitting at bedside today -When discussing biopsy of the liver mass pt was quick to answer that she did not to have a biopsy. -When asked what would be done if the lesion was found to be cancer-either mets from duodenum, mets from a new primary, or a liver primary-the mainstay of treatment would be systemic therapy. Risk of treatment-side effects, cytopenias- vs benefit of treatment-help with symptoms-is felt to be marginal at best, more likely treatment would worsen QOL rather then improve it. Also, PS is poor and pt would not be a candidate for systemic treatment in her current physical state. Recommendation would be for comfort/hospice. Daughter would like to talk to her mother about all that was discussed. She reports that they will have a decision by the end of today. -Of note, Ca19.9 is elevated at 549. CEA was also elevated but, not to the extent that Ca19.9 so, more likely related to inflammation in the abd. -LFTs noted to be increasing since admit We are available if the pt or family has any questions or concerns Time with Patient: Greater than 30
--- NOTE | 2023-07-10 14:39 | P.PN ---
Subjective Progress Note Date: 07/10/23 I am seeing the patient for the first time during this admission. Please refer to Dr. Botello's notes for further details. The patient has left facial droop, left sided weakness and left vision defer per nurse. Objective - Vital Signs Vital signs: Vital Signs Temp 98.1 F 07/10/23 11: Pulse 76 07/10/23 11: Resp 16 07/10/23 11:23 BP 172/81 07/10/23 11:23 Pulse Ox 98 07/10/23 11:23 FiO2 Intake & Output 07/09/23 07/10/23 07/10/23 18:59 06:59 18:59 Intake Total 200 Output Total 2875 300 Balance -2675 -300 Intake: Oral 200 Output: Urine 2875 300 Other: Voiding Method External Catheter External Catheter External Catheter # Voids 1 # Bowel Movements 1 - Exam General: Sitting in a recliner chair and is not in acute distress. Neuro: Somewhat limited because of patient cooperation. The patient is mildly drowsy but is awake able to voice. Oriented to self. Pupils are round, equal and reactive to light. Is tracking and no nystagmus. Has left Homonymous hemianopsia. Left lower facial droop. Motor: Has moderate to significant weakness of left side. Is able to lift the left upper above gravity but has drift and left hand peoplesoft fscm developer is 0. On left lower did not appreciate any movement. - Labs CBC & Chem 7: 07/10/23 08:19 07/10/23 08:19 Labs: Abnormal Lab Results - Last 24 Hours (Table) 07/10/23 07/10/23 Range/Units 08:19 08:19 WBC 13.4 H (3.8-10.6) k/uL RDW 15.6 H (11.5-15.5) % Neutrophils # 12.1 H (1.3-7.7) k/uL Lymphocytes # 0.6 L (1.0-4.8) k/uL Potassium 2.7 L* (3.5-5.1) mmol/L Creatinine 0.37 L (0.52-1.04) mg/dL Glucose 208 H (74-99) mg/dL Microbiology - Last 24 Hours (Table) 07/08/23 12:24 Blood Culture - Preliminary Blood 07/07/23 15:00 Urine Culture - Preliminary Urine,Catheterized Gram Neg Bacilli Assessment and Plan Assessment: * Possible acute ischemic stroke vs brain mets (especially with left hepatic mass), with left homonymous hemianopia, left sided neglect and mild left-sided weakness with left facial droop. Patient not a candidate for TPA, as unknown onset of symptoms. * Fluctuating left arm weakness, unclear cause. Rule out focal seizure. Rule out TIA. * History of Whipple's procedure for duodenal cancer. 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 Plan: * MRI of the brain was ordered, but cannot get clearance because of presence of some biliary stent. * Repeat CT head performed today revealed no acute intracranial process or significant interval change as visualized. I personally reviewed CT head and agree with the findings. * 2-D echo revealed preserved left ventricular size and systolic function, with EF 55-60%. No obvious regional wall motion abnormalities. Normal left atrial size. Moderate pericardial effusion, exudative. This appears old. Fibrinous material overlying the surface of the myocardium. No evidence for tamponade. * Carotid Doppler revealed mild atherosclerotic disease without significant stenosis. Antegrade flow in both vertebral arteries. * Dr. Botello ordered EEG and pending to be read. * Fasting a.m. lipid panel with cholesterol 131, LDL 47, HDL 70, triglycerides 65 on 05/12/2023. Patient not a candidate for statins because of low LDL, hepatic disease and coagulopathy. * Hemoglobin A1c 6.8 on 05/12/2023. * Ammonia < 9. Check B12, folate * Optimize control of blood pressure. * Start aspirin 81 mg daily. Will avoid dual antiplatelet medication because of hepatic disease. CT head showed no obvious CVA. * Consider CT with ontrast since cannot obtain MRI Brain. The daughter wants to hold any further neurological work-up for now and is interested in hospice consultation. * Neuro checks as per protocol. * Telemetry monitoring rule out any arrhythmia * PT, OT, speech therapy * DVT prophylaxis: SCDs * The plan is discussed with daughter who is at bedside, primary team and her nurse. Time with Patient: Less than 30
[2023-07-10] MEDS ORDERED: levETIRAcetam IV 500 MG/5 ML VIAL IVP STA (17:44)
[2023-07-10] MEDS ORDERED: LORazepam 2 MG/ML INJ IV STA (17:46)
--- NOTE | 2023-07-10 20:07 | EEG ---
ELECTROENCEPHALOGRAM REPORT CLINICAL HISTORY: This is an 87-year-old woman with fluctuation of left arm weakness. The video EEG is obtained to evaluate for seizure and epileptiform activity. RELEVANT MEDICATIONS: The patient is not on any antiepileptic drugs. EEG TYPE: A routine 21-channel EEG with video using the 10/20 electrode placement system. DESCRIPTION: Background consists of [id number] voltage of 8 to 9 Hz activity. There is no physiological stage II sleep architecture seen. There is no focal slowing. INTERICTAL AND ICTAL: There appears to be sharply-contoured activity over the right posterior quadrant/occipital region. There is intermittent delta activity of 2-1/2 to 3-1/2 of moderate to somewhat high voltage over the right hemisphere as well as left occipital region, and as I stated, it seems sharply contoured over the right posterior quadrant/occipital region lasting for a few seconds to a few minutes. There is no evolution during these episodes. ACTIVATION PROCEDURE: Photic stimulation and hyperventilation are not performed. CLINICAL INTERPRETATION: This is an abnormal routine EEG. The background slowing is suggestive of mild encephalopathy. There appears to be sharply-contoured activity over the right posterior quadrant/occipital region suggestive of cortical irritability with tendencies for possible seizure. There is focal slowing over the right hemisphere mostly in the right posterior quadrant/occipital region consistent with likely focal cerebral dysfunction. No seizure noted during this study. Clinical correlation is recommended. MMBERNARDAL / DUCN: [id number] /
[2023-07-11] MEDS: METOPROLOL TARTRATE 25 MG TAB PO SCH ×3 (05:11→20:51)
[2023-07-11 08:32] LABS: HCT 41.2 % (34.0-46.0); HGB 13.5 gm/dL (11.4-16.0); Hypochromasia Slight; MCH 29.6 pg (25.0-35.0); MCHC 32.6 g/dL (31.0-37.0); MCV 90.8 fL (80.0-100.0); Mean Platelet Volume 9.2; Platelet Count 160 k/uL (150-450); RBC 4.54 m/uL (3.80-5.40); RDW 15.6 % (11.5-15.5); WBC 11.1 k/uL (3.8-10.6)
--- NOTE | 2023-07-11 08:33 | P.CONS ---
History of Present Illness - Reason for Consult Consult date: 07/10/23 UTI, sepsis Requesting physician: Rc Starkey - Chief Complaint Weakness found on the floor X few days - History of Present Illness Patient is a 87-year-old female with a past medical history significant for duodenal cancer osteoarthritis cataracts presenting to the hospital on 07/07/2023 although patient was found to be down at home suspected to be on the floor for 3 to 4 days and unable to get up patient remembers falling but then was unable to stand up due to right-sided pain with the symptoms the patient has been evaluated on presentation to the hospital the patient was afebrile and no fever have been recorded subsequently patient did have white count of 16,000 which degenerated to 4000 however is down to 13,000 today kidney function was normal liver enzymes are mildly elevated CRP is 8.8 she did have a positive UA urine testing was negative influenza RSV and COVID testing was negative patient urine is growing gram-negative bacilli patient is on Rocephin 1 g daily infectious disease was consulted for further management of her UTI patient did have a CT of the chest abdominal pelvis no definite acute traumatic injury demonstrated the chest abdominal pelvis small effusion large heterogeneous mass in the left hepatic lobe and abnormality in the pancreas patient exam evaluation he is afebrile she is slightly lethargic though arousable patient denies having any headache no chest pain no shortness of breath patient did have occasional cough not bringing up any sputum though patient denies any nausea vomiting abdominal pain no diarrhea did have some urinary symptoms mostly burning but denies any hematuria or flank pain Review of Systems Positive point and negatives has been mentioned in the HPI, complete review of systems was performed and all other systems are negative Past Medical History Past Medical History: Cancer, Eye Disorder, Osteoarthritis (OA) Additional Past Medical History / Comment(s): DUODENAL CANCER 1998. CATARACTS. OSTEOPOROSIS. ON PO AB FOR UTI. History of Any Multi-Drug Resistant Organisms: None Reported Past Surgical History: Appendectomy, Cholecystectomy, Orthopedic Surgery, Tonsillectomy Additional Past Surgical History / Comment(s): "WHIPPLE PROCEDURE FOR DUODENAL CANCER." SANDRA BUNIONECTOMY. COLONOSCOPY Past Anesthesia/Blood Transfusion Reactions: No Reported Reaction Past Psychological History: No Psychological Hx Reported Smoking Status: Former smoker Past Alcohol Use History: Occasional Additional Past Alcohol Use History / Comment(s): SMOKED AGE 15 ON/OFF, LIGHT, QUIT 1962 Past Drug Use History: None Reported - Past Family History Brother(s) Family Medical History: Cancer Additional Family Medical History / Comment(s): X2 BROTHERS - 1 LUNG, 1 COLON Sister(s) Family Medical History: Cancer Additional Family Medical History / Comment(s): lung cancer Medications and Allergies Home Medications Medication Instructions Recorded Confirmed Type Biotin 5 mg PO DAILY 11/06/18 07/07/23 History Multivitamins, Thera [Multivitamin 1 tab PO DAILY 11/06/18 07/07/23 History (formulary)] Calcium Carbonate/Vitamin D3 1 tab PO DAILY 07/07/23 07/07/23 History [Caltrate 600 Plus D3 20 Mcg (800 Iu)] Cholecalciferol [Vitamin D3 (25 150 mcg PO DAILY 07/07/23 07/07/23 History Mcg = 1000 Iu)] Lutein 20 mg PO DAILY 07/07/23 07/07/23 History Vitamin C Er 500mg 500 mg PO DAILY 07/07/23 07/07/23 History Allergies Allergy/AdvReac Type Severity Reaction Status Date / Time bee pollen Allergy Unknown Verified 07/07/23 17:22 Influenza Virus Vaccines AdvReac Chills, Verified 07/07/23 17:22 flu-like symptoms prednisone AdvReac Nausea & Verified 07/07/23 17:22 Vomiting tramadol AdvReac Hallucinati Verified 07/07/23 17:22 ons Physical Exam Vitals: Vital Signs Temp Pulse Resp BP Pulse Ox 07/10/23 09:26 98 07/10/23 08:45 102 H 16 07/10/23 08:44 98.6 F 102 H 16 159/80 96 07/10/23 04:00 97.9 F 99 20 158/70 96 07/10/23 02:00 96 20 07/10/23 00:00 97.5 F L 96 20 200/94 96 07/09/23 20:00 97.7 F 94 21 188/89 95 07/09/23 16:32 97.8 F 91 16 196/96 95 07/09/23 14:00 91 16 07/09/23 11:31 100 16 178/83 95 Intake and Output 07/09/23 07/10/23 07/10/23 22:59 06:59 14:59 Intake Total 200 Output Total 1575 300 Balance -1375 -300 Intake: Oral 200 Output: Urine 1575 300 Other: Voiding Method External Catheter External Catheter External Catheter # Bowel Movements 1 GENERAL DESCRIPTION: Elderly female lying in bed, no distress. No tachypnea or accessory muscle of respiration use. HEENT: Shows Pallor , no scleral icterus. Oral mucous membrane is dry. No pharyngeal erythema or thrush NECK: Trachea central, no thyromegaly. LUNGS: Unlabored breathing. Clear to auscultation anteriorly. No wheeze or crack le. HEART: S1, S2, regular rate and rhythm. No loud murmur ABDOMEN: Soft, no tenderness , EXTREMITIES: No edema of feet. SKIN: No rash, no masses palpable. NEUROLOGICAL: The patient is awake, alert, oriented x3, mood and affect normal. Results CBC & Chem 7: 07/11/23 07:52 07/11/23 07:52 Labs: Abnormal Lab Results - Last 24 Hours (Table) 07/09/23 07/09/23 07/09/23 Range/Units 11:54 11:54 11:54 WBC 14.8 H (3.8-10.6) k/uL RDW (11.5-15.5) % Neutrophils # 13.3 H (1.3-7.7) k/uL Lymphocytes # 0.8 L (1.0-4.8) k/uL PT 14.1 H (10.0-12.5) sec INR 1.3 H (<1.2) Potassium (3.5-5.1) mmol/L BUN 25 H (7-17) mg/dL Creatinine 0.44 L (0.52-1.04) mg/dL Glucose 179 H (74-99) mg/dL Total Bilirubin 4.0 H (0.2-1.3) mg/dL Conjugated Bilirubin 2.0 H (0.0-0.3) mg/dL Delta Bilirubin 1.3 H (0.0-0.2) mg/dL AST 231 H (14-36) U/L ALT 53 H (4-34) U/L Alkaline Phosphatase 673 H (38-126) U/L Total Protein 6.1 L (6.3-8.2) g/dL Albumin 2.7 L (3.5-5.0) g/dL 07/10/23 07/10/23 Range/Units 08:19 08:19 WBC 13.4 H (3.8-10.6) k/uL RDW 15.6 H (11.5-15.5) % Neutrophils # 12.1 H (1.3-7.7) k/uL Lymphocytes # 0.6 L (1.0-4.8) k/uL PT (10.0-12.5) sec INR (<1.2) Potassium 2.7 L* (3.5-5.1) mmol/L BUN (7-17) mg/dL Creatinine 0.37 L (0.52-1.04) mg/dL Glucose 208 H (74-99) mg/dL Total Bilirubin (0.2-1.3) mg/dL Conjugated Bilirubin (0.0-0.3) mg/dL Delta Bilirubin (0.0-0.2) mg/dL AST (14-36) U/L ALT (4-34) U/L Alkaline Phosphatase (38-126) U/L Total Protein (6.3-8.2) g/dL Albumin (3.5-5.0) g/dL Microbiology - Last 24 Hours (Table) 07/08/23 12:24 Blood Culture - Preliminary Blood 07/07/23 15:00 Urine Culture - Preliminary Urine,Catheterized Gram Neg Bacilli Assessment and Plan (1) Leukocytosis Current Visit: Yes Status: Acute Code(s): D72.829 - ELEVATED WHITE BLOOD CELL COUNT, UNSPECIFIED SNOMED Code(s): 782540106 (2) UTI (urinary tract infection) Current Visit: Yes Status: Acute Code(s): N39.0 - URINARY TRACT INFECTION, SITE NOT SPECIFIED SNOMED Code(s): 99501379 Plan: 1patient presented to hospital with weakness fall which is likely multifactorial patient did have evidence of UTI with gram-negative ID sensitivities pending CT abdominal pelvis did not show any evidence of obstructive uropathy or hydronephrosis 2-elevated liver enzymes and abnormality of the CT with a question of left hepatic lobe tumor hematology-oncology is following the patient, CT did not mention any abnormality of the gallbladder area 3-patient to continue the Rocephin while waiting for the culture to finalize We will follow on clinical condition and cultures to further adjust medication if needed Thank you for this consultation we will follow the patient along with you Dictation was produced using [employer] software. please excuse any grammatical, word or spelling errors. Time with Patient: Greater than 30
[2023-07-11 08:47] LABS: ALT 64 U/L (4-34); AST 174 U/L (14-36); African American GFR (CKD) >90 (>60 ml/min/1.73 sqM); Albumin 2.4 g/dL (3.5-5.0); Alkaline Phosphatase 550 U/L (38-126); Anion Gap 5 mmol/L; Blood Urea Nitrogen 16 mg/dL (7-17); Calcium 8.6 mg/dL (8.4-10.2); Carbon Dioxide 27 mmol/L (22-30); Chloride 104 mmol/L (98-107); Glucose 178 mg/dL (74-99); Non-African American GFR(CKD) >90 (>60 ml/min/1.73 sqM); Potassium 3.7 mmol/L (3.5-5.1); Sodium 136 mmol/L (137-145); Total Bilirubin 6.3 mg/dL (0.2-1.3); Total Protein 5.8 g/dL (6.3-8.2)
[2023-07-11] MEDS ORDERED: levETIRAcetam IV 500 MG/5 ML VIAL IVP SCH (09:00)
[2023-07-11] MEDS: DEXTROSE 5%-0.45% NACL 1,000 ML IV SCH (09:40)
[2023-07-11] MEDS: FAMOTIDINE 20 MG/2 ML VIAL IV SCH (09:40)
[2023-07-11] MEDS: ASPIRIN 81 MG PO SCH (09:53)
[2023-07-11] MEDS: amLODIPine 5 MG TAB PO SCH (09:53)
--- NOTE | 2023-07-11 12:28 | P.PN ---
Subjective Progress Note Date: 07/11/23 This is a pleasant 87 years old female with past medical history of Osteoarthritis ,DUODENAL CANCER 1998. C s/p "WHIPPLE PROCEDURE FOR DUODENAL CANCER." Present because patient was found on the floor and able to get up for 5 days. Patient kind of poor historian on admission. And information was obtained from staff and medical record Patient has diffuse but the pain. Generally weak and tired looking. Follow commands and talks in soft tone. Vitas looks stable and patient is afebrile Labs reviewed, patient has leukocytosis of 16.6, INR is elevated at 4.4, rest of CBC is unremarkable BMP and liver enzymes are reviewed, patient has evidence of mild transaminitis which is improving on repeat test. Creatinine kinase is elevated at 114-1. Troponin mildly elevated at 0.06 and 0.04. Computed tomography scan of the thoracolumbar spine showing no fracture but spondylotic changes CT of the head and neck and cervical spine showing no fracture as well Chest x-ray: No acute process CT of the chest, abdomen and pelvis with IV contrast showing liver mass with intrahepatic duct dilatation. Intrapancreatic duct dilatation and the pancreatic head is not visualized, please refer to the report for more details. Patient received IV fluid and Rocephin and admitted to the general medical floor 07/08/2023 Patient today is awake alert, partially oriented to time place as she knows she is in hospital but not City name or name of the hospital, she could tell the year but not the month. She is oriented to person. She denies any urinary symptoms. No suprapubic tenderness or flank pain. No right upper quadrant pain where she has liver mass. No nausea vomiting and she eats well However she is complaining of from left lateral chest pain below the armpit. 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 Her vitals are stable though and her blood pressure is actually 170/80. She is saturating well on room air. Labs look stable. Leukocytosis worsened 16.6 up to 24 gait. CRP is mildly elevated at 8.8. Blood culture and pfrolcalcitonin are requested. Patient remains on normal saline 75 ml Per hour and ceftriaxone. Patient was given aspirin 160 mg today and continued it 1 mg patient made aware she has a liver mass and she verbalized understanding and acceptance Neurology service been consulted as well as cardiology. As per patient and daughter wishes patient's request to be DO NOT RESUSCITATE 07/09/2023 Patient is awake and alert, she denies specific pain, no breathing difficulty, no abdominal tenderness. She still has weakness in her left upper extremity. On the lateral side there is about 1 inch to 2-Chinese dilator abrasion which is healing. Today she has bilateral leg swelling and hand swelling, she is on normal saline 75 mL/h, not associated to D5 half-normal saline at 50 mL/h. Give one-time dose of Lasix 20 mg. That her blood pressure is elevated at 182/97 therefore we added metoprolol 25 mg. Cardiology were consulted for chest pain and elevated troponin. Echocardiogram showing evidence of exudative pericarditis. Neurology input is appreciated. Patient currently on aspirin 81 mg, carotid duplex is negative for significant stenosis. CHF) and PENDING MRI of the brain is ordered and is pending. Patient is aware about her liver mass, she has history of duodenal mass status post Whipple procedure, oncology team input is appreciated, she has increased tumor markers CEA 24.9 and CEA [id number]. Patient is malnourished and therefore we will start ensure with meals. She remains on ceftriaxone and leukocytosis improvement down to 17,000 07/10. Patient seen and examined. WBC this morning is 13.4, hemoglobin 13, platelet count 178, sodium 139, potassium 2.7, BUN 17, creatinine 0.37. Daughter at the bedside. Discussed with her in the presence of nursing staff neurology regarding goals of care. Daughter expressed that she will talk to rest of family and will probably be leaning towards comfort care, does not want any invasive testing. 07/11. Patient seen and examined. Patient is lethargic. Daughter at the bedside, has made decision to go home with hospice. REVIEW OF SYSTEMS: Cannot be obtained as patient is very lethargic PHYSICAL EXAMINATION: GENERAL: The patient is lethargic. Chronically ill-looking HEENT: Pupils are round and equally reacting to light. EOMI. No scleral icterus. No conjunctival pallor. Normocephalic, atraumatic. No pharyngeal erythema. No thyromegaly. CARDIOVASCULAR: S1 and S2 present. No murmurs, rubs, or gallops. PULMONARY: Chest is clear to auscultation, no wheezing or crackles. ABDOMEN: Soft, nontender, nondistended, normoactive bowel sounds. No palpable o rganomegaly. MUSCULOSKELETAL: No joint swelling or deformity. EXTREMITIES: No cyanosis, clubbing, or pedal edema. NEUROLOGICAL: Left upper extremity weakness, cranial nerves II through XII intact SKIN: No rashes. Assessment and plan Left upper extremity weakness suspicious for stroke versus other Fall Elevated troponin Metabolic encephalopathy, improved. Patient only mildly confused today Liver mass suspicious for malignancy, with elevated tumor markers CEA and CA 19- 9 Acute urinary tract infection Rhabdomyolysis, Improving Pressure ulcers with bruising to right lateral thigh with pressure skin sores to right hip right iliac crest Malnourished with severe calorie protein malnutrition Coagulopathy secondary to malnutrition Hypoalbuminemia Dehydration leukocytosis Monitor vital signs Monitor CBC Monitor CMP Continue telemetry monitoring Encourage use of incentive spirometer MRI of the brain was ordered, but cannot get clearance because of presence of some biliary stent. Repeat CT head performed revealed no acute intracranial process or significant interval change as visualized. 2-D echo revealed preserved left ventricular size and systolic function, with EF 55-60%. No obvious regional wall motion abnormalities. Normal left atrial size. Moderate pericardial effusion, exudative. This appears old. Fibrinous m aterial overlying the surface of the myocardium. No evidence for tamponade. Carotid Doppler revealed mild atherosclerotic disease without significant stenosis. Antegrade flow in both vertebral arteries. Continue IV fluids Continue with ceftriaxone upon urine culture In regards to hypertension continue [facility] Had long discussion with patient's daughter regarding goals of care and poor prognosis, patient daughter decided to take patient home with hospice Neurology and hematology oncology following, they agreed with patient's daughter decision of transitioning her to hospitalist Labs and medication were reviewed.. Continue same treatment. Continue with sy mptomatic treatment. Resume home medication. Monitor labs and vitals. DVT and GI prophylaxis. Further recommendations as per clinical course of the patient Dictation was produced using [email or web address] dictation software. please excuse any grammatical, word or spelling errors. Objective - Vital Signs Vital signs: Vital Signs Temp 97.2 F L 07/11/23 11:00 Pulse 93 07/11/23 11:00 Resp 20 07/11/23 11:00 BP 167/81 07/11/23 11:00 Pulse Ox 98 07/11/23 11:00 FiO2 Intake & Output 07/10/23 07/11/2307/11/23 18:59 06:59 18:59 Intake Total 0 Output Total 100 Balance -100 Weight 43.772 kg Intake: Oral 0 Output: Urine 100 Other: Voiding Method External Catheter External Catheter External Catheter # Voids 1 - Labs CBC & Chem 7: 07/11/23 07:52 07/11/23 07:52 Labs: Abnormal Lab Results - Last 24 Hours (Table) 07/10/23 07/11/23 07/11/23 Range/Units 08:19 07:52 07:52 WBC 11.1 H (3.8-10.6) k/uL RDW 15.6 H (11.5-15.5) % Sodium 136 L (137-145) mmol/L Creatinine 0.33 L (0.52-1.04) mg/dL Glucose 178 H (74-99) mg/dL Total Bilirubin 6.3 H (0.2-1.3) mg/dL AST 174 H (14-36) U/L ALT 64 H (4-34) U/L Alkaline Phosphatase 550 H (38-126) U/L Total Protein 5.8 L (6.3-8.2) g/dL Albumin 2.4 L (3.5-5.0) g/dL Vitamin B12 >3600.0 H (200.0-944.0) pg/mL Microbiology - Last 24 Hours (Table) 07/08/23 12:24 Blood Culture - Preliminary Blood 07/07/23 15:00 Urine Culture - Final Urine,Catheterized Escherichia coli
--- NOTE | 2023-07-11 12:44 | P.PN ---
Subjective Progress Note Date: 07/11/23 Principal diagnosis: Reason for follow-up is E. coli urinary tract infection Patient is a 87-year-old female with a past medical history significant for duodenal cancer osteoarthritis cataracts presenting to the hospital on 07/07/2023 although patient was found to be down at home , patient did have elevated white count positive UA and some urinary symptoms concerning for symptomatic urinary tract infection On today's evaluation that is07/11/2023, the patient continues to be afebrile, the patient is breathing comfortably on room air without the need for supplemental oxygen, the patient denies shortness of breath chest pain and no significant cough , patient denies nausea/vomiting, no abdominal pain, has been complaining of some shoulder pain and no diarrhea reported Patient white count is 11.1, creatinine is 0.33, urine with E. coli Objective - Vital Signs Vital signs: Vital Signs Temp 97.2 F L 07/11/23 11:00 Pulse 93 07/11/23 11:00 Resp 20 07/11/23 11:00 BP 167/81 07/11/23 11:00 Pulse Ox 98 07/11/23 11:00 FiO2 Intake & Output 07/10/23 07/11/23 07/11/23 18:59 06:59 18:59 Intake Total 0 Output Total 100 Balance -100 Weight 43.772 kg Intake: Oral 0 Output: Urine 100 Other: Voiding Method External Catheter External Catheter External Catheter # Voids 1 - Exam GENERAL DESCRIPTION: An elderly female up in the chair in no distress RESPIRATORY SYSTEM: Unlabored breathing , clear to auscultation anteriorly HEART: S1 S2 regular rate and rhythm , ABDOMEN: Soft , no tenderness EXTREMITIES: No edema feet - Labs CBC & Chem 7: 07/11/23 07:52 07/11/23 07:52 Labs: Abnormal Lab Results - Last 24 Hours (Table) 07/10/23 07/11/23 07/11/23 Range/Units 08:19 07:52 07:52 WBC 11.1 H (3.8-10.6) k/uL RDW 15.6 H (11.5-15.5) % Sodium 136 L (137-145) mmol/L Creatinine 0.33 L (0.52-1.04) mg/dL Glucose 178 H (74-99) mg/dL Total Bilirubin 6.3 H (0.2-1.3) mg/dL AST 174 H (14-36) U/L ALT 64 H (4-34) U/L Alkaline Phosphatase 550 H (38-126) U/L Total Protein 5.8 L (6.3-8.2) g/dL Albumin 2.4 L (3.5-5.0) g/dL Vitamin B12 >3600.0 H (200.0-944.0) pg/mL Microbiology - Last 24 Hours (Table) 07/08/23 12:24 Blood Culture - Preliminary Blood 07/07/23 15:00 Urine Culture - Final Urine,Catheterized Escherichia coli Assessment and Plan (1) Leukocytosis Current Visit: Yes Status: Acute Code(s): D72.829 - ELEVATED WHITE BLOOD CELL COUNT, UNSPECIFIED SNOMED Code(s): 071907529 (2) UTI (urinary tract infection) Current Visit: Yes Status: Acute Code(s): N39.0 - URINARY TRACT INFECTION, SITE NOT SPECIFIED SNOMED Code(s): 32839969 Plan: 1patient presented to hospital with weakness fall which is likely multifactorial patient did have evidence of UTI with urine has been finalized w ith an E. coli that is a sensitive pathogen pending CT abdominal pelvis did not show any evidence of obstructive uropathy or hydronephrosis 2-patient to continue the Rocephin will be transitioned oral antibiotics on discharge Daughter at the bedside and multiple questions were answered Dictation was produced using [email or web address] dictation software. please excuse any grammatical, word or spelling errors. Time with Patient: Less than 30
--- NOTE | 2023-07-11 15:05 | P.PN ---
Subjective Progress Note Date: 07/11/23 Principal diagnosis: Liver mass, Hx duodenal carcinoma In f/u today pt daughter is at bedside, she discussed her mothers care with her brother, they had a few more questions. Pt has no acute c/o today, she cont to be firm in her decision that she does not want to purse any further testing or aggressive treatments. Objective - Vital Signs Vital signs: Vital Signs Temp 97.2 F L 07/11/23 11:00 Pulse 93 07/11/23 11:00 Resp 20 07/11/23 13:00 BP 167/81 07/11/23 11:00 Pulse Ox 98 07/11/23 11:00 FiO2 Intake & Output 07/10/23 07/11/23 07/11/23 18:59 06:59 18:59 Intake Total 0 Output Total 100 Balance -100 Weight 43.772 kg Intake: Oral 0 Output: Urine 100 Other: Voiding Method External Catheter External Catheter Indwelling Catheter # Voids 1 - Constitutional General appearance: Present: no acute distress, thin - EENT Eyes: Present: anicteric sclerae - Musculoskeletal Musculoskeletal: Present: generalized weakness - Labs CBC & Chem 7: 07/11/23 07:52 07/11/23 07:52 Labs: Abnormal Lab Results - Last 24 Hours (Table) 07/10/23 07/11/23 07/11/23 Range/Units 08:19 07:52 07:52 WBC 11.1 H (3.8-10.6) k/uL RDW 15.6 H (11.5-15.5) % Sodium 136 L (137-145) mmol/L Creatinine 0.33 L (0.52-1.04) mg/dL Glucose 178 H (74-99) mg/dL Total Bilirubin 6.3 H (0.2-1.3) mg/dL AST 174 H (14-36) U/L ALT 64 H (4-34) U/L Alkaline Phosphatase 550 H (38-126) U/L Total Protein 5.8 L (6.3-8.2) g/dL Albumin 2.4 L (3.5-5.0) g/dL Vitamin B12 >3600.0 H (200.0-944.0) pg/mL Microbiology - Last 24 Hours (Table) 07/08/23 12:24 Blood Culture - Preliminary Blood 07/07/23 15:00 Urine Culture - Final Urine,Catheterized Escherichia coli Assessment and Plan (1) Liver mass Current Visit: Yes Status: Acute Priority: High Code(s): R16.0 - HEPATOMEGALY, NOT ELSEWHERE CLASSIFIED SNOMED Code(s): 310171879 Plan: Liver mass, Hx of duodenal carcinoma -Discussed case with Project Developer. -Pt cont to be firm that she does not to have a biopsy. -Daughter and son had a few questions about how to know if what is going on is cancer-only way to absolutely confirm malignancy is with a biopsy. We reviewed again the possibilities of what this liver lesion could be-mets from duodenum, mets from a new upper GI primary, or a liver primary. We reviewed that metastatic disease of most any kind, especially small bowel/upper GI, requires treatment is rather aggressive with side effects that can be hard for even a person in good shape to tolerate. If this is a liver primary, the options for treatment are even more limited with side effects that can be difficult to manage, the prognosis is usually very poor. All of the family's questions were answered to their satisfaction. -Of note, Ca19.9 is elevated at 549. CEA was also elevated but, not to the extent that Ca19.9 so, more likely related to inflammation in the abd. -LFTs are now stable, some are decreasing Time with Patient: Greater than 30
--- NOTE | 2023-07-11 19:00 | P.PN ---
Subjective Progress Note Date: 07/11/23 I am following up with the patient according to the patient daughter was at bedside she stated that the patient is very sensitive to new medication and she seemed more confused today compared to yesterday. She is concerned that the Keppra has side effects to her confusion. Objective - Vital Signs Vital signs: Vital Signs Temp 97.7 F 07/11/23 15:22 Pulse 90 07/11/23 15:22 Resp 20 07/11/23 15:22 BP 160/84 07/11/23 15:22 Pulse Ox 98 07/11/23 15:22 FiO2 Intake & Output 07/10/23 07/11/23 07/11/23 18:59 06:59 18:59 Intake Total 0 115 Output Total 300 175 Balance -300 -60 Weight 43.772 kg Intake: Oral 0 115 Output: Urine 300 175 Other: Voiding Method External Catheter External Catheter Indwelling Catheter # Voids 1 - Exam General: Lying in bed and and is not in acute distress. Neuro: Somewhat limited because of confusion/cooperation. The patient is severely drowsy and is awakeable to voice then would close eyes. She is oriented to self. She followed few simple commands. Language is limited. Pupils are round, equal and reactive to light. Left lower facial droop. Motor: Has significant weakness of left side. Is able to lift the right upper above gravity and showing thumbs up on the right hand. - Labs CBC & Chem 7: 07/11/23 07:52 07/11/23 07:52 Labs: Abnormal Lab Results - Last 24 Hours (Table) 07/11/23 07/11/23 Range/Units 07:52 07:52 WBC 11.1 H (3.8-10.6) k/uL RDW 15.6 H (11.5-15.5) % Sodium 136 L (137-145) mmol/L Creatinine 0.33 L (0.52-1.04) mg/dL Glucose 178 H (74-99) mg/dL Total Bilirubin 6.3 H (0.2-1.3) mg/dL AST 174 H (14-36) U/L ALT 64 H (4-34) U/L Alkaline Phosphatase 550 H (38-126) U/L Total Protein 5.8 L (6.3-8.2) g/dL Albumin 2.4 L (3.5-5.0) g/dL Microbiology - Last 24 Hours (Table) 07/08/23 12:24 Blood Culture - Preliminary Blood 07/07/23 15:00 Urine Culture - Final Urine,Catheterized Escherichia coli Assessment and Plan Assessment: * Left homonymous hemianopia, left sided neglect and mild left-sided weakness with left facial droop. Unknown exact etiology. Possible stroke not seen on CT vs brain mets vs underlying seizure. On EEG has sharply contoured activity over the right posterior quadrant/occipital region seems suggestive of discharges. * History of Whipple's procedure for duodenal cancer. 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 Plan: * MRI of the brain was ordered, but cannot get clearance because of presence of some biliary stent. * Repeat CT head performed today revealed no acute intracranial process or significant interval change as visualized. I personally reviewed CT head and agree with the findings. * 2-D echo revealed preserved left ventricular size and systolic function, with EF 55-60%. No obvious regional wall motion abnormalities. Normal left atrial size. Moderate pericardial effusion, exudative. This appears old. Fibrinous material overlying the surface of the myocardium. No evidence for tamponade. * Carotid Doppler revealed mild atherosclerotic disease without significant stenosis. Antegrade flow in both vertebral arteries. * Routine EEG on 07/10/2023 as abnormal. The background slowing is suggestive of mild encephalopathy. There appears to be sharply contoured activity over the right posterior quadrant/occipital region suggestive of cortical irritability with tendencies for possible seizure. There is focal slowing over the right hemisphere mostly in the right posterior quadrant the/occipital region consistent with likely focal cerebral dysfunction. No seizure noted during the study. * Yesterday I give the patient Ativan 0.5 mg with loading dose of Keppra 1500 then I started the patient on Keppra 500 mg twice a day but today the patient was more sleepy and drowsy and the patient daughter stated that the patient is very sensitive to medication and wanted the medication to be lowered. Therefore I lowered the Keppra to 250 mg every 12 hours. * Fasting a.m. lipid panel with cholesterol 131, LDL 47, HDL 70, triglycerides 65 on 05/12/2023. Patient not a candidate for statins because of low LDL, hepatic disease and coagulopathy. * Hemoglobin A1c 6.8 on 05/12/2023. * Ammonia < 9. Check B12, folate * Optimize control of blood pressure. * Start aspirin 81 mg daily. Will avoid dual antiplatelet medication because of hepatic disease. CT head showed no obvious CVA. * Neuro checks as per protocol. * Telemetry monitoring rule out any arrhythmia * PT, OT, speech therapy * DVT prophylaxis: SCDs * The daughter does not want to pursue any further imaging or any further neurological workup. Hospice is consulted and daughter wants to take the patient home with hospice * The plan is discussed with daughter who is at bedside, primary team. There is no further neurological work-up. Please notify neurology team if any further concerns. Time with Patient: Less than 30
[2023-07-11] MEDS: levETIRAcetam IV 500 MG/5 ML VIAL IVP SCH (20:51)
[2023-07-12 06:05] VITALS: RESP 20
[2023-07-12] MEDS: DEXTROSE 5%-0.45% NACL 1,000 ML IV SCH (06:49)
[2023-07-12] MEDS: METOPROLOL TARTRATE 25 MG TAB PO SCH (08:12)
[2023-07-12] MEDS: ASPIRIN 81 MG PO SCH (08:12)
[2023-07-12] MEDS: levETIRAcetam IV 500 MG/5 ML VIAL IVP SCH (08:13)
[2023-07-12] MEDS: amLODIPine 5 MG TAB PO SCH (08:13)
[2023-07-12] MEDS: FAMOTIDINE 20 MG/2 ML VIAL IV SCH (08:13)
[2023-07-12 11:46] VITALS: BP 152/78; PULSE 84; TEMP 98
--- NOTE | 2023-07-12 13:15 | P.DS ---
Providers Date of admission: 07/07/23 19:58 Expected date of discharge: 07/12/23 Attending physician: Rafal Chen MD Consults: 07/07/23 22:58 Consult Physician Routine Consulting Provider: Brad Hamm Consult Reason/Comments: liver mass Do you want consulting provider notified?: Yes, Notify in am 07/08/23 11:10 Consult Physician Urgent Consulting Provider: Mg Fermin Consult Reason/Comments: high troponin, left lateral chest pain Do you want consulting provider notified?: Yes Consult Physician Urgent Consulting Provider: Lyla Botello Consult Reason/Comments: left arm weakness Do you want consulting provider notified?: Yes 07/08/23 18:31 Consult Physician Routine Consulting Provider: Sola Chavarria Consult Reason/Comments: Liver mass Do you want consulting provider notified?: Yes, Notify in am 07/10/23 09:45 Consult Physician Routine Consulting Provider: Miri Melgar Consult Reason/Comments: UTI, sepsis Do you want consulting provider notified?: Yes Primary care physician: Stated None Hospital Course: Discharge diagnoses; Left upper extremity weakness suspicious for stroke Fall Elevated troponin Metabolic encephalopathy, improved. Patient only mildly confused today Liver mass suspicious for malignancy, with elevated tumor markers CEA and CA 19- 9 Acute urinary tract infection Rhabdomyolysis, Improving Pressure ulcers with bruising to right lateral thigh with pressure skin sores to right hip right iliac crest Malnourished with severe calorie protein malnutrition Coagulopathy secondary to malnutrition Hypoalbuminemia Dehydration leukocytosis Hospital course; This is a pleasant 87 years old female with past medical history of Osteoarthritis ,DUODENAL CANCER 1998. C s/p "WHIPPLE PROCEDURE FOR DUODENAL CANCER." Present because patient was found on the floor and able to get up for 5 days. Patient kind of poor historian on admission. And information was obtained from staff and medical record Patient has diffuse but the pain. Generally weak and tired looking. Follow commands and talks in soft tone. Vitas looks stable and patient is afebrile Labs reviewed, patient has leukocytosis of 16.6, INR is elevated at 4.4, rest of CBC is unremarkable BMP and liver enzymes are reviewed, patient has evidence of mild transaminitis which is improving on repeat test. Creatinine kinase is elevated at 114-1. Troponin mildly elevated at 0.06 and 0.04. Computed tomography scan of the thoracolumbar spine showing no fracture but spondylotic changes CT of the head and neck and cervical spine showing no fracture as well Chest x-ray: No acute process CT of the chest, abdomen and pelvis with IV contrast showing liver mass with intrahepatic duct dilatation. Intrapancreatic duct dilatation and the pancreatic head is not visualized, please refer to the report for more details. Patient received IV fluid and Rocephin and admitted to the general medical floor 07/08/2023 Patient today is awake alert, partially oriented to time place as she knows she is in hospital but not City name or name of the hospital, she could tell the year but not the month. She is oriented to person. She denies any urinary symptoms. No suprapubic tenderness or flank pain. No right upper quadrant pain where she has liver mass. No nausea vomiting and she eats well However she is complaining of from left lateral chest pain below the armpit. 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 Her vitals are stable though and her blood pressure is actually 170/80. She is saturating well on room air. Labs look stable. Leukocytosis worsened 16.6 up to 24 gait. CRP is mildly elevated at 8.8. Blood culture and pfrolcalcitonin are requested. Patient remains on normal saline 75 ml Per hour and ceftriaxone. Patient was given aspirin 160 mg today and continued it 1 mg patient made aware she has a liver mass and she verbalized understanding and acceptance Neurology service been consulted as well as cardiology. As per patient and daughter wishes patient's request to be DO NOT RESUSCITATE 07/09/2023 Patient is awake and alert, she denies specific pain, no breathing difficulty, no abdominal tenderness. She still has weakness in her left upper extremity. On the lateral side there is about 1 inch to 2-Mongolian dilator abrasion which is healing. Today she has bilateral leg swelling and hand swelling, she is on normal saline 75 mL/h, not associated to D5 half-normal saline at 50 mL/h. Give one-time dose of Lasix 20 mg. That her blood pressure is elevated at 182/97 therefore we added metoprolol 25 mg. Cardiology were consulted for chest pain and elevated troponin. Echocardiogram showing evidence of exudative pericarditis. Neurology input is appreciated. Patient currently on aspirin 81 mg, carotid duplex is negative for significant stenosis. CHF) and PENDING MRI of the brain is ordered and is pending. Patient is aware about her liver mass, she has history of duodenal mass status post Whipple procedure, oncology team input is appreciated, she has increased tumor markers CEA 24.9 and CEA [id number]. Patient is malnourished and therefore we will start ensure with meals. She remains on ceftriaxone and leukocytosis improvement down to 17,000 07/10. Patient seen and examined. WBC this morning is 13.4, hemoglobin 13, platelet count 178, sodium 139, potassium 2.7, BUN 17, creatinine 0.37. Daughter at the bedside. Discussed with her in the presence of nursing staff neurology regarding goals of care. Daughter expressed that she will talk to rest of family and will probably be leaning towards comfort care, does not want any invasive testing. 07/11. Patient seen and examined. Patient is lethargic. Daughter at the bedside, has made decision to go home with hospice. 07/12. Patient seen and examined. Patient continues to be lethargic. Family wants patient to be transitioned to inpatient hospice. PHYSICAL EXAMINATION: GENERAL: The patient is lethargic. Chronically ill-looking HEENT: Pupils are round and equally reacting to light. EOMI. No scleral icterus. No conjunctival pallor. Normocephalic, atraumatic. No pharyngeal erythema. No thyromegaly. CARDIOVASCULAR: S1 and S2 present. No murmurs, rubs, or gallops. PULMONARY: Diminished breath on the bases bilaterally, no wheezing or crackles. ABDOMEN: Soft, nontender, nondistended, normoactive bowel sounds. No palpable organomegaly. MUSCULOSKELETAL: No joint swelling or deformity. EXTREMITIES: No cyanosis, clubbing, or pedal edema. NEUROLOGICAL: Left upper extremity weakness, cranial nerves II through XII intact SKIN: No rashes. Dictation was produced using [employer] dictation software. please excuse any grammatical, word or spelling errors. Patient Condition at Discharge: Serious Plan - Discharge Summary Discharge Rx Participant: No New Discharge Prescriptions: No Action Multivitamins, Thera [Multivitamin (formulary)] 1 tab PO DAILY Biotin 5 mg PO DAILY Lutein 20 mg PO DAILY Calcium Carbonate/Vitamin D3 [Caltrate 600 Plus D3 20 Mcg (800 Iu)] 1 tab PO DAILY Cholecalciferol [Vitamin D3 (25 Mcg = 1000 Iu)] 150 mcg PO DAILY Vitamin C Er 500mg 500 mg PO DAILY Discharge Medication List Biotin 5 mg PO DAILY 11/06/18 [History] Multivitamins, Thera [Multivitamin (formulary)] 1 tab PO DAILY 11/06/18 [History] Calcium Carbonate/Vitamin D3 [Caltrate 600 Plus D3 20 Mcg (800 Iu)] 1 tab PO DAILY 07/07/23 [History] Cholecalciferol [Vitamin D3 (25 Mcg = 1000 Iu)] 150 mcg PO DAILY 07/07/23 [History] Lutein 20 mg PO DAILY 07/07/23 [History] Vitamin C Er 500mg 500 mg PO DAILY 07/07/23 [History] Follow up Appointment(s)/Referral(s): None,Stated [Primary Care Provider] - 1-2 days Discharge Disposition: HOME WITH HOSPICE
== END 2023-07-12 12:25 | disposition hospice, inpatient (51) | DRG 64 ==
LOC: EC 14:54 → 3SCARD 19:58
PROVIDERS: ADMIT Internal Medicine; ATTEND Internal Medicine
DX: I63.9 Cerebral infarction, unspecified (principal); E43 Unspecified severe protein-calorie malnutrition; G93.41 Metabolic encephalopathy; D68.9 Coagulation defect, unspecified; N39.0 Urinary tract infection, site not specified; I31.39 Other pericardial effusion (noninflammatory); C78.7 Secondary malignant neoplasm of liver and intrahepatic bile duct; R41.4 Neurologic neglect syndrome; Z68.1 Body mass index [BMI] 19.9 or less, adult; T79.6XXA Traumatic ischemia of muscle, initial encounter; M81.0 Age-related osteoporosis without current pathological fracture; B96.20 Unspecified Escherichia coli [E. coli] as the cause of diseases classified elsewhere; Z85.068 Personal history of other malignant neoplasm of small intestine; E86.0 Dehydration; R29.810 Facial weakness; K86.89 Other specified diseases of pancreas; L89.219 Pressure ulcer of right hip, unspecified stage; M47.812 Spondylosis without myelopathy or radiculopathy, cervical region; R97.0 Elevated carcinoembryonic antigen [CEA]; I10 Essential (primary) hypertension; M19.90 Unspecified osteoarthritis, unspecified site; E88.09 Other disorders of plasma-protein metabolism, not elsewhere classified; H53.462 Homonymous bilateral field defects, left side; Z51.5 Encounter for palliative care; Z66 Do not resuscitate; R79.89 Other specified abnormal findings of blood chemistry; Z28.310 Unvaccinated for COVID-19; Z20.822 Contact with and (suspected) exposure to COVID-19; Z28.21 Immunization not carried out because of patient refusal; Z91.81 History of falling; Z79.82 Long term (current) use of aspirin; Z80.1 Family history of malignant neoplasm of trachea, bronchus and lung; Z90.411 Acquired partial absence of pancreas; Z96.641 Presence of right artificial hip joint; Z88.5 Allergy status to narcotic agent; Z88.7 Allergy status to serum and vaccine; Z91.030 Bee allergy status; Z87.891 Personal history of nicotine dependence; Z80.0 Family history of malignant neoplasm of digestive organs
CPT/HCPCS: 36415; 70450; 71045; 71260; 72125; 72129; 72132; 73502; 74177; 80048; 80053; 80076; 80306; 80320; 81001; 82105; 82140; 82378; 82550; 82607; 82746; 83735; 84145; 84484; 85025; 85027; 85610; 85730; 86140; 86301; 87040; 87077; 87086; 87186; 87636; 90471; 90715; 93005; 93306; 93880; 94760; 95816; 96361; 96365; 96366; 96375; 99291

== ENCOUNTER 2023-07-12 12:10 | Inpatient (IN) | payer MEDICAID ==
[2023-07-12] MEDS ORDERED: LORazepam 2 MG/ML INJ IV PRN (12:16)
[2023-07-12] MEDS ORDERED: ACETAMINOPHEN TAB 325 MG TAB PO PRN (12:16)
[2023-07-12] MEDS ORDERED: ONDANSETRON 4 MG/2 ML VIAL IVP PRN (12:16)
[2023-07-12] MEDS ORDERED: GLYCOPYRROLATE 0.2 MG/ML 2 ML VIAL IVP PRN (12:16)
[2023-07-12] MEDS: MORPHINE SULFATE 2 MG/ML SYRINGE IV PRN ×2 (12:56→18:34)
[2023-07-12] MEDS: SODIUM CHLORIDE 0.9% 1,000 ML IV SCH (12:57)
[2023-07-12] MEDS: SCOPOLAMINE 1 MG/72 HR PATCH TRANSDERM SCH (12:57)
[2023-07-12] MEDS: ATROPINE OPHTH SOLN 1% 5ML BTL SUBLINGUAL PRN (17:07)
[2023-07-13] MEDS: MORPHINE SULFATE 2 MG/ML SYRINGE IV PRN ×4 (00:06→23:14)
[2023-07-13] MEDS: ATROPINE OPHTH SOLN 1% 5ML BTL SUBLINGUAL PRN (00:07)
--- NOTE | 2023-07-13 09:45 | P.HPIM ---
History of Present Illness H&P Date: 07/12/23 History of present illness; Patient is an 87-year-old female with a significant history of duodenal cancer. Patient presented to the emergency room after sustaining a fall and was found on the ground of her home. It is thought that she was on the ground for approximately 3 to 4 days. Patient was diagnosed with duodenal cancer 1998 and was treated in the [place] area, although unknown which oncologist/hospital system. She received chemo and RT and underwent Whipple procedure. Daughter states patient prior to this visit has been otherwise rather healthy considering her age and lives independently. Upon admission UA revealed UTI and patient was started on Rocephin. LFTs and bilirubin elevated. CBC revealed leukocytosis with WBC 16.6, hemoglobin 15.3, platelets 275,000. Creatinine 0.54. CK elevated at 1,141. Serial troponins elevated. Patient was also noted to have left-sided weakness . CT brain and C-spine revealed no acute intracranial abnormalities and no evidence of cervical spine fractures. CT chest abdomen pelvis showed no acute traumatic injury to chest abdomen or pelvis. Small left pleural effusion. Large heterogeneous mass in the left hepatic lobe measuring approximately 8.4 cm x 5.8 cm x 6.4 cm with ill-defined margins, and cystic dilatation of the pancreatic duct in the body and tail. Patient was admitted to internal medicine service. Cardiology, nephrology, hematology oncology was consulted. Patient was not doing well, patient for prognosis was discussed with patient daughter on NUMBER OF OCCASIONS AND FINALLY DECISION WAS MADE FOR PATIENT TO BE TRANSITIONED TO INPATIENT HOSPICE. PATIENT WAS ADMITTED TO INPATIENT HOSPICE ON 07/12/23 REVIEW OF SYSTEMS: Cannot be obtained as patient is very lethargic PHYSICAL EXAMINATION: GENERAL: The patient is lethargic. Chronically ill-looking HEENT: Pupils are round and equally reacting to light. EOMI. No scleral icterus. No conjunctival pallor. Normocephalic, atraumatic. No pharyngeal erythema. No thyromegaly. CARDIOVASCULAR: S1 and S2 present. No murmurs, rubs, or gallops. PULMONARY: Diminished breath on the bases bilaterally, no wheezing or crackles. ABDOMEN: Soft, nontender, nondistended, normoactive bowel sounds. No palpable organomegaly. MUSCULOSKELETAL: No joint swelling or deformity. EXTREMITIES: No cyanosis, clubbing, or pedal edema. NEUROLOGICAL: Left upper extremity weakness, cranial nerves II through XII intact SKIN: No rashes. Assessment and plan Left upper extremity weakness suspicious for stroke Fall Elevated troponin Metabolic encephalopathy, improved. Patient only mildly confused today Liver mass suspicious for malignancy, with elevated tumor markers CEA and CA 19- 9 Acute urinary tract infection Rhabdomyolysis, Improving Pressure ulcers with bruising to right lateral thigh with pressure skin sores to right hip right iliac crest Malnourished with severe calorie protein malnutrition Coagulopathy secondary to malnutrition Hypoalbuminemia Dehydration leukocytosis Plan; Continue hospice care Continue current treatment Dictation was produced using [employer] dictation software. please excuse any grammatical, word or spelling errors. Past Medical History Past Medical History: Cancer, Eye Disorder, Osteoarthritis (OA) Additional Past Medical History / Comment(s): DUODENAL CANCER 1998. CATARACTS. OSTEOPOROSIS. ON PO AB FOR UTI. History of Any Multi-Drug Resistant Organisms: None Reported Past Surgical History: Appendectomy, Cholecystectomy, Orthopedic Surgery, Tonsillectomy Additional Past Surgical History / Comment(s): "WHIPPLE PROCEDURE FOR DUODENAL CANCER." SANDRA BUNIONECTOMY. COLONOSCOPY Past Anesthesia/Blood Transfusion Reactions: No Reported Reaction Past Psychological History: No Psychological Hx Reported Smoking Status: Former smoker Past Alcohol Use History: Occasional Additional Past Alcohol Use History / Comment(s): SMOKED AGE 15 ON/OFF, LIGHT, QUIT 1963 Past Drug Use History: None Reported - Past Family History Brother(s) Family Medical History: Cancer Additional Family Medical History / Comment(s): X2 BROTHERS - 1 LUNG, 1 COLON Sister(s) Family Medical History: Cancer Additional Family Medical History / Comment(s): lung cancer Medications and Allergies Home Medications Medication Instructions Recorded Confirmed Type Biotin 5 mg PO DAILY 11/06/18 07/12/23 History Multivitamins, Thera [Multivitamin 1 tab PO DAILY 11/06/18 07/12/23 History (formulary)] Calcium Carbonate/Vitamin D3 1 tab PO DAILY 07/07/23 07/12/23 History [Caltrate 600 Plus D3 20 Mcg (800 Iu)] Cholecalciferol [Vitamin D3 (25 150 mcg PO DAILY 07/07/23 07/12/23 History Mcg = 1000 Iu)] Lutein 20 mg PO DAILY 07/07/23 07/12/23 History Vitamin C Er 500mg 500 mg PO DAILY 07/07/23 07/12/23 History Allergies Allergy/AdvReac Type Severity Reaction Status Date / Time bee pollen Allergy Unknown Verified 07/12/23 14:49 Influenza Virus Vaccines AdvReac Chills, Verified 07/12/23 14:49 flu-like symptoms prednisone AdvReac Nausea & Verified 07/12/23 14:49 Vomiting tramadol AdvReac Hallucinati Verified 07/12/23 14:49 ons Physical Exam Vitals: Vital Signs Temp Pulse Resp BP Pulse Ox 07/13/23 03:45 90 16 145/65 94 L 07/13/23 02:00 88 16 07/13/23 00:00 88 16 188/84 96 07/12/23 20:00 74 12 07/12/23 18:32 73 14 07/12/23 17:04 72 14 07/12/23 11:20 98.0 F 84 20 152/78 95 Intake and Output 07/12/23 07/13/23 07/13/23 22:59 06:59 14:59 Intake Total 0 Output Total 50 250 Balance -50 -250 Intake: Oral 0 Output: Urine 50 250 Other: Voiding Method Indwelling Catheter Indwelling Catheter
[2023-07-13] MEDS: SODIUM CHLORIDE 0.9% 1,000 ML IV SCH (12:53)
--- NOTE | 2023-07-13 13:41 | P.PN ---
Subjective Progress Note Date: 07/13/23 Patient is an 87-year-old female with a significant history of duodenal cancer. Patient presented to the emergency room after sustaining a fall and was found on the ground of her home. It is thought that she was on the ground for approximately 3 to 4 days. Patient was diagnosed with duodenal cancer 1998 and was treated in the [place] area, although unknown which oncologist/hospital system. She received chemo and RT and underwent Whipple procedure. Daughter states patient prior to this visit has been otherwise rather healthy considering her age and lives independently. Upon admission UA revealed UTI and patient was started on Rocephin. LFTs and bilirubin elevated. CBC revealed leukocytosis with WBC 16.6, hemoglobin 15.3, platelets 275,000. Creatinine 0.54. CK elevated at 1,141. Serial troponins elevated. Patient was also noted to have left-sided weakness . CT brain and C-spine revealed no acute intracranial abnormalities and no evidence of cervical spine fractures. CT chest abdomen pelvis showed no acute traumatic injury to chest abdomen or pelvis. Small left pleural effusion. Large heterogeneous mass in the left hepatic lobe measuring approximately 8.4 cm x 5.8 cm x 6.4 cm with ill-defined margins, and cystic dilatation of the pancreatic duct in the body and tail. Patient was admitted to internal medicine service. Cardiology, nephrology, hematology oncology was consulted. Patient was not doing well, patient for prognosis was discussed with patient daughter on NUMBER OF OCCASIONS AND FINALLY DECISION WAS MADE FOR PATIENT TO BE TRANSITIONED TO INPATIENT HOSPICE. PATIENT WAS ADMITTED TO INPATIENT HOSPICE ON 07/12/2307/13. Patient seen and examined. Currently on comfort care measures. Patient obtunded, not very responsive. REVIEW OF SYSTEMS: Cannot be obtained as patient is very lethargic PHYSICAL EXAMINATION: GENERAL: The patient is lethargic. Chronically ill-looking, pale looking HEENT: Pupils are round and equally reacting to light. EOMI. No scleral icterus. CARDIOVASCULAR: S1 and S2 present. No murmurs, rubs, or gallops. PULMONARY: Tachypneic, Diminished breath on the bases bilaterally, no wheezing or crackles. ABDOMEN: Soft, nontender, nondistended, normoactive bowel sounds. No palpable organomegaly. MUSCULOSKELETAL: No joint swelling or deformity. EXTREMITIES: No cyanosis, clubbing, or pedal edema. NEUROLOGICAL: Left upper extremity weakness, patient obtunded, not responsive to verbal stimuli SKIN: No rashes. Assessment and plan Left upper extremity weakness suspicious for stroke Fall Elevated troponin Metabolic encephalopathy, improved. Patient only mildly confused today Liver mass suspicious for malignancy, with elevated tumor markers CEA and CA 19- 9 Acute urinary tract infection Rhabdomyolysis, Improving Pressure ulcers with bruising to right lateral thigh with pressure skin sores to right hip right iliac crest Malnourished with severe calorie protein malnutrition Coagulopathy secondary to malnutrition Hypoalbuminemia Dehydration leukocytosis Plan; Continue hospice care Continue current treatment Dictation was produced using [employer] dictation software. please excuse any grammatical, word or spelling errors. Objective - Vital Signs Vital signs: Vital Signs Temp 98.0 F 07/12/23 11:20 Pulse 90 07/13/23 03:45 Resp 16 07/13/23 03:45 BP 145/65 07/13/23 03:45 Pulse Ox 94 L 07/13/23 03:45 FiO2 Intake & Output 07/12/23 07/13/23 07/13/23 18:59 06:59 18:59 Intake Total 0 Output Total 300 Balance 0 -300 Weight 43 kg Intake: Oral 0 Output: Urine 300 Other: Voiding Method Indwelling Catheter Indwelling Catheter
[2023-07-14] MEDS: MORPHINE SULFATE 2 MG/ML SYRINGE IV PRN ×2 (04:52→11:23)
[2023-07-14] MEDS ORDERED: DRY MOUTH SPRAY 44.3 SPRAY/44.3 ML SPRAY MUCOUS MEM PRN (10:42)
[2023-07-14] MEDS: MORPHINE SULFATE (100 MG/2 ML) 100 MG in SODIUM CHLORIDE 0.9% 100 ML IV SCH (11:08)
--- NOTE | 2023-07-14 12:50 | P.PN ---
Subjective Progress Note Date: 07/14/23 Patient is an 87-year-old female with a significant history of duodenal cancer. Patient presented to the emergency room after sustaining a fall and was found on the ground of her home. It is thought that she was on the ground for approximately 3 to 4 days. Patient was diagnosed with duodenal cancer 1998 and was treated in the [place] area, although unknown which oncologist/hospital system. She received chemo and RT and underwent Whipple procedure. Daughter states patient prior to this visit has been otherwise rather healthy considering her age and lives independently. Upon admission UA revealed UTI and patient was started on Rocephin. LFTs and bilirubin elevated. CBC revealed leukocytosis with WBC 16.6, hemoglobin 15.3, platelets 275,000. Creatinine 0.54. CK elevated at 1,141. Serial troponins elevated. Patient was also noted to have left-sided weakness . CT brain and C-spine revealed no acute intracranial abnormalities and no evidence of cervical spine fractures. CT chest abdomen pelvis showed no acute traumatic injury to chest abdomen or pelvis. Small left pleural effusion. Large heterogeneous mass in the left hepatic lobe measuring approximately 8.4 cm x 5.8 cm x 6.4 cm with ill-defined margins, and cystic dilatation of the pancreatic duct in the body and tail. Patient was admitted to internal medicine service. Cardiology, nephrology, hematology oncology was consulted. Patient was not doing well, patient for prognosis was discussed with patient daughter on NUMBER OF OCCASIONS AND FINALLY DECISION WAS MADE FOR PATIENT TO BE TRANSITIONED TO INPATIENT HOSPICE. PATIENT WAS ADMITTED TO INPATIENT HOSPICE ON 07/12/2307/13. Patient seen and examined. Currently on comfort care measures. Patient obtunded, not very responsive. 07/14. Patient seen and examined. Patient be switched to morphine drip REVIEW OF SYSTEMS: Cannot be obtained as patient is very lethargic PHYSICAL EXAMINATION: GENERAL: The patient is lethargic. Chronically ill-looking, pale looking HEENT: Pupils are round and equally reacting to light. EOMI. No scleral icterus. CARDIOVASCULAR: S1 and S2 present. No murmurs, rubs, or gallops. PULMONARY: Tachypneic, Diminished breath on the bases bilaterally, no wheezing or crackles. ABDOMEN: Soft, nontender, nondistended, normoactive bowel sounds. No palpable organomegaly. MUSCULOSKELETAL: No joint swelling or deformity. EXTREMITIES: No cyanosis, clubbing, or pedal edema. NEUROLOGICAL: Left upper extremity weakness, patient obtunded, not responsive to verbal stimuli SKIN: No rashes. Assessment and plan Left upper extremity weakness suspicious for stroke Fall Elevated troponin Metabolic encephalopathy, improved. Patient only mildly confused today Liver mass suspicious for malignancy, with elevated tumor markers CEA and CA 19- 9 Acute urinary tract infection Rhabdomyolysis, Improving Pressure ulcers with bruising to right lateral thigh with pressure skin sores to right hip right iliac crest Malnourished with severe calorie protein malnutrition Coagulopathy secondary to malnutrition Hypoalbuminemia Dehydration leukocytosis Plan; Continue morphine drip Continue hospice care Continue current treatment Dictation was produced using [employer] dictation software. please excuse any grammatical, word or spelling errors. Objective - Vital Signs Vital signs: Vital Signs Temp 98.0 F 07/12/23 11:20 Pulse 100 07/14/23 08:29 Resp 18 07/14/23 08:29 BP 145/65 07/13/23 03:45 Pulse Ox 94 L 07/13/23 03:45 FiO2 Intake & Output 07/13/23 07/14/23 07/14/23 18:59 06:59 18:59 Intake Total 0 Output Total 100 89 Balance -100 -89 Intake: Oral 0 Output: Urine 100 89 Other: Voiding Method Indwelling Catheter Indwelling Catheter
[2023-07-14] MEDS: SODIUM CHLORIDE 0.9% 1,000 ML IV SCH (15:06)
[2023-07-14 21:06] VITALS: BP 95/59; PULSE 94
[2023-07-14 22:26] VITALS: TEMP 100.4
[2023-07-15] MEDS: SCOPOLAMINE 1 MG/72 HR PATCH TRANSDERM SCH (07:54)
[2023-07-15 09:28] VITALS: RESP 9
[2023-07-15] MEDS: SODIUM CHLORIDE 0.9% 1,000 ML IV SCH (10:46)
[2023-07-15] MEDS: MORPHINE SULFATE (100 MG/2 ML) 100 MG in SODIUM CHLORIDE 0.9% 100 ML IV SCH (10:46)
[2023-07-15 11:10] VITALS: BMI 16.7
--- NOTE | 2023-07-15 13:28 | P.PN ---
Subjective Progress Note Date: 07/15/23 Patient is an 87-year-old female with a significant history of duodenal cancer. Patient presented to the emergency room after sustaining a fall and was found on the ground of her home. It is thought that she was on the ground for approximately 3 to 4 days. Patient was diagnosed with duodenal cancer 1998 and was treated in the [place] area, although unknown which oncologist/hospital system. She received chemo and RT and underwent Whipple procedure. Daughter states patient prior to this visit has been otherwise rather healthy considering her age and lives independently. Upon admission UA revealed UTI and patient was started on Rocephin. LFTs and bilirubin elevated. CBC revealed leukocytosis with WBC 16.6, hemoglobin 15.3, platelets 275,000. Creatinine 0.54. CK elevated at 1,141. Serial troponins elevated. Patient was also noted to have left-sided weakness . CT brain and C-spine revealed no acute intracranial abnormalities and no evidence of cervical spine fractures. CT chest abdomen pelvis showed no acute traumatic injury to chest abdomen or pelvis. Small left pleural effusion. Large heterogeneous mass in the left hepatic lobe measuring approximately 8.4 cm x 5.8 cm x 6.4 cm with ill-defined margins, and cystic dilatation of the pancreatic duct in the body and tail. Patient was admitted to internal medicine service. Cardiology, nephrology, hematology oncology was consulted. Patient was not doing well, patient for prognosis was discussed with patient daughter on NUMBER OF OCCASIONS AND FINALLY DECISION WAS MADE FOR PATIENT TO BE TRANSITIONED TO INPATIENT HOSPICE. PATIENT WAS ADMITTED TO INPATIENT HOSPICE ON 07/12/2307/13. Patient seen and examined. Currently on comfort care measures. Patient obtunded, not very responsive. 07/14. Patient seen and examined. Patient be switched to morphine drip 07/15 Patient seen and examined. Family at the bedside, patient is not responding. Snoring loudly. REVIEW OF SYSTEMS: Cannot be obtained as patient is very lethargic PHYSICAL EXAMINATION: GENERAL: The patient is obtunded, snoring loudly. Chronically ill-looking, pale looking HEENT: Pupils are round and equally reacting to light. EOMI. No scleral icterus. CARDIOVASCULAR: S1 and S2 present. No murmurs, rubs, or gallops. PULMONARY: Tachypneic, Diminished breath on the bases bilaterally, no wheezing or crackles. ABDOMEN: Soft, nontender, nondistended, normoactive bowel sounds. No palpable organomegaly. MUSCULOSKELETAL: No joint swelling or deformity. EXTREMITIES: No cyanosis, clubbing, or pedal edema. NEUROLOGICAL: Left upper extremity weakness, patient obtunded, not responsive to verbal stimuli SKIN: No rashes. Assessment and plan Left upper extremity weakness suspicious for stroke Fall Elevated troponin Metabolic encephalopathy, improved. Patient only mildly confused today Liver mass suspicious for malignancy, with elevated tumor markers CEA and CA 19- 9 Acute urinary tract infection Rhabdomyolysis, Improving Pressure ulcers with bruising to right lateral thigh with pressure skin sores to right hip right iliac crest Malnourished with severe calorie protein malnutrition Coagulopathy secondary to malnutrition Hypoalbuminemia Dehydration leukocytosis Plan; Continue morphine drip Continue hospice care Continue current treatment Dictation was produced using [employer] dictation software. please excuse any grammatical, word or spelling errors. Objective - Vital Signs Vital signs: Vital Signs Temp 100.4 F H 07/14/23 20:00 Pulse 94 07/14/23 20:00 Resp 9 L 07/15/23 07:07 BP 95/59 07/14/23 20:00 Pulse Ox 80 L 07/14/23 20:00 FiO2 Intake & Output 07/14/23 07/15/23 07/15/23 18:59 06:59 18:59 Intake Total 5.984 Output Total 17 Balance -11.016 Intake: Intake, IV Titration 5.984 Amount Morphine Sulfate (100 mg/ 5.984 2 ml) 100 mg In Sodium Chloride 0.9% 100 ml @ 1 MG/HR 1.02 mls/hr IV . Q24H [facility] Rx#:[id number] Oral 0 Output: Urine 17 Other: Voiding Method Indwelling Catheter Indwelling Catheter # Voids 1 0
--- NOTE | 2023-07-16 10:13 | P.DS ---
Providers Date of admission: 07/12/23 12:28 Expected date of discharge: 07/15/23 Attending physician: Rc Starkey MD Primary care physician: Stated None Hospital Course: Discharge diagnoses; Left upper extremity weakness suspicious for stroke Fall Elevated troponin Metabolic encephalopathy, improved. Patient only mildly confused today Liver mass suspicious for malignancy, with elevated tumor markers CEA and CA 19- 9 Acute urinary tract infection Rhabdomyolysis, Improving Pressure ulcers with bruising to right lateral thigh with pressure skin sores to right hip right iliac crest Malnourished with severe calorie protein malnutrition Coagulopathy secondary to malnutrition Hypoalbuminemia Dehydration leukocytosis Hospital course; Patient is an 87-year-old female with a significant history of duodenal cancer. Patient presented to the emergency room after sustaining a fall and was found on the ground of her home. It is thought that she was on the ground for approximately 3 to 4 days. Patient was diagnosed with duodenal cancer 1998 and was treated in the [place] area, although unknown which oncologist/hospital system. She received chemo and RT and underwent Whipple procedure. Daughter states patient prior to this visit has been otherwise rather healthy considering her age and lives independently. Upon admission UA revealed UTI and patient was started on Rocephin. LFTs and bilirubin elevated. CBC revealed leukocytosis with WBC 16.6, hemoglobin 15.3, platelets 275,000. Creatinine 0.54. CK elevated at 1,141. Serial troponins elevated. Patient was also noted to have left-sided weakness . CT brain and C-spine revealed no acute intracranial abnormalities and no evidence of cervical spine fractures. CT chest abdomen pelvis showed no acute traumatic injury to chest abdomen or pelvis. Small left pleural effusion. Large heterogeneous mass in the left hepatic lobe measuring approximately 8.4 cm x 5.8 cm x 6.4 cm with ill-defined margins, and cystic dilatation of the pancreatic duct in the body and tail. Patient was admitted to internal medicine service. Cardiology, nephrology, hematology oncology was consulted. Patient was not doing well, patient for prognosis was discussed with patient daughter on NUMBER OF OCCASIONS AND FINALLY DECISION WAS MADE FOR PATIENT TO BE TRANSITIONED TO INPATIENT HOSPICE. PATIENT WAS ADMITTED TO INPATIENT HOSPICE ON 07/12/2307/13. Patient seen and examined. Currently on comfort care measures. Patient obtunded, not very responsive. 07/14. Patient seen and examined. Patient be switched to morphine drip 07/15 Patient seen and examined. Family at the bedside, patient is not responding. Snoring loudly. Patient was pronounced on 07/15/23 at 16;58. Family was at the bedside. Dictation was produced using [employer] dictation software. please excuse any grammatical, word or spelling errors. Plan - Discharge Summary New Discharge Prescriptions: No Action Multivitamins, Thera [Multivitamin (formulary)] 1 tab PO DAILY Biotin 5 mg PO DAILY Lutein 20 mg PO DAILY Calcium Carbonate/Vitamin D3 [Caltrate 600 Plus D3 20 Mcg (800 Iu)] 1 tab PO DAILY Cholecalciferol [Vitamin D3 (25 Mcg = 1000 Iu)] 150 mcg PO DAILY Vitamin C Er 500mg 500 mg PO DAILY Discharge Medication List Biotin 5 mg PO DAILY 11/06/18 [History] Multivitamins, Thera [Multivitamin (formulary)] 1 tab PO DAILY 11/06/18 [History] Calcium Carbonate/Vitamin D3 [Caltrate 600 Plus D3 20 Mcg (800 Iu)] 1 tab PO DAILY 07/07/23 [History] Cholecalciferol [Vitamin D3 (25 Mcg = 1000 Iu)] 150 mcg PO DAILY 07/07/23 [History] Lutein 20 mg PO DAILY 07/07/23 [History] Vitamin C Er 500mg 500 mg PO DAILY 07/07/23 [History] Discharge Disposition: - Preliminary Cause of Preliminary Cause of : cva
== END 2023-07-15 19:29 | disposition expired | DRG 951 ==
LOC: 3SCARD 12:28 → 4SSUR 07-14 22:47
PROVIDERS: ADMIT Internal Medicine; ATTEND Internal Medicine
DX: Z51.5 Encounter for palliative care (principal); I63.9 Cerebral infarction, unspecified; E43 Unspecified severe protein-calorie malnutrition; G93.41 Metabolic encephalopathy; N39.0 Urinary tract infection, site not specified; D68.8 Other specified coagulation defects; Z68.1 Body mass index [BMI] 19.9 or less, adult; M62.82 Rhabdomyolysis; G83.24 Monoplegia of upper limb affecting left nondominant side; K86.89 Other specified diseases of pancreas; R16.0 Hepatomegaly, not elsewhere classified; S70.11XA Contusion of right thigh, initial encounter; E88.09 Other disorders of plasma-protein metabolism, not elsewhere classified; E86.0 Dehydration; M19.90 Unspecified osteoarthritis, unspecified site; M81.0 Age-related osteoporosis without current pathological fracture; W19.XXXA Unspecified fall, initial encounter; Z66 Do not resuscitate; Y92.009 Unspecified place in unspecified non-institutional (private) residence as the place of occurrence of the external cause; Z85.068 Personal history of other malignant neoplasm of small intestine; Z87.891 Personal history of nicotine dependence; Z80.1 Family history of malignant neoplasm of trachea, bronchus and lung; Z92.21 Personal history of antineoplastic chemotherapy; Z92.3 Personal history of irradiation; Z80.0 Family history of malignant neoplasm of digestive organs; J30.1 Allergic rhinitis due to pollen; Z88.7 Allergy status to serum and vaccine; Z88.8 Allergy status to other drugs, medicaments and biological substances; Z88.5 Allergy status to narcotic agent; R06.83 Snoring; L89.209 Pressure ulcer of unspecified hip, unspecified stage